=== PATIENT | female | born 1965 | race African-American/Black ===

== ENCOUNTER 2016-06-07 09:19 | Inpatient (IN) | payer OTHER ==
[2016-06-07 09:50] VITALS: BMI 28.5
--- NOTE | 2016-06-07 11:58 | HP ---
CIWA Score - CIWA Score Nausea/Vomitin-Mild Nausea/No Vomiting Muscle Tremors: 4-Moderate,w/Arms Extend Anxiety: 3 Agitation: 4-Moderately Restless Paroxysmal Sweats: 3 Orientation: 0-Oriented Tacttile Disturbances: 0-None Auditory Disturbances: 0-None Visual Disturbances: 0-None Headache: 2-Mild CIWA-Ar Total Score: 17 Admission ROS S - HPI Chief Complaint: I am here to detox. Allergies/Adverse Reactions: Allergies Allergy/AdvReac Type Severity Reaction Status Date / Time sulfamethoxazole Allergy Severe Hives Verified 06/07/16 10:11 [From Bactrim] trimethoprim [From Bactrim] Allergy Severe Hives Verified 06/07/16 10:11 History of Present Illness: pt is a 50yr old female with a history of alcohol and cocaine dependence seeking detox for treatment. Exam Limitations: No Limitations - Ebola screening Have you traveled outside of the country in the last 21 days: No Have you had contact with anyone from an Ebola affected area: No Have you been sick,other than usual withdrawal symptoms: No Do you have a fever: No - Review of Systems Constitutional: Chills, Diaphoresis EENT: reports: Tearing, Nose Congestion Respiratory: reports: Cough, Productive cough Cardiac: reports: No Symptoms Reported GI: reports: Diarrhea, Poor Fluid Intake, Indigestion : reports: No Symptoms Reported Musculoskeletal: reports: Muscle Pain Integumentary: reports: Flushing, Sweating Neuro: reports: Headache, Seizure (last week last seizure), Tingling, Tremors Endocrine: reports: Excessive Sweating, Flushing, Intolerance to Cold, Intolerance to Heat Hematology: reports: No Symptoms Reported Psychiatric: reports: Judgement Intact, Mood/Affect Appropiate, Orientated x3, Agitated, Anxious Other Systems: Reviewed and Negative Patient History - Patient Medical History Hx Anemia: No Hx Asthma: No Hx Chronic Obstructive Pulmonary Disease (COPD): No Hx Cancer: Yes (cervical CA 1996. remission) Hx Cardiac Disorders: No Hx Congestive Heart Failure: No Hx Hypertension: Yes (on meds.) Hx Hypercholesterolemia: No Hx Pacemaker: No HX Cerebrovascular Accident: No Hx Seizures: Yes (seizure disorder last was 1 week ago.) Hx Dementia: No Hx Diabetes: No Hx Gastrointestinal Disorders: Yes (Pt has GERD.) Hx Liver Disease: No Hx Genitourinary Disorders: No Hx Sexually Transmitted Disorders: No Hx Renal Disease (ESRD): No Hx Thyroid Disease: No Hx Human Immunodeficiency Virus (HIV): Yes (HIV diagnosed 1990 compliant with medication ) Hx Hepatitis C: No (2015) Hx Depression: Yes Hx Suicide Attempt: No Hx Bipolar Disorder: No Hx Schizophrenia: Yes - Patient Surgical History Past Surgical History: Yes Hx Neurologic Surgery: No Hx Cataract Extraction: No Hx Cardiac Surgery: No Hx Lung Surgery: No Hx Breast Surgery: No Hx Breast Biopsy: No Hx Abdominal Surgery: No Hx Appendectomy: No Hx Cholecystectomy: No Hx Genitourinary Surgery: No Hx Section: Yes (2004) Hx Orthopedic Surgery: No Hx Hysterectomy: No Other Surgical History: IN 2004, LEEP PROCEDURE FOR CERVIX CANCER 1995 Anesthesia Reaction: No - PPD History Previous Implant?: Yes Documented Results: Negative w/proof Implanted On Prior [facility] Admission?: Yes Date: 11/16/15 Results: 0 MM PPD to be Administered?: No - Reproductive History Patient is a Female of Child Bearing Age (11 -55 yrs old): Yes Last Menstrual Period: 06/05/16 Patient : No - Smoking Cessation Smoking history: Current every day smoker Have you smoked in the past 12 months: Yes Aproximately how many cigarettes per day: 10 Hx Chewing Tobacco Use: No Initiated information on smoking cessation: Yes 'Breaking Loose' booklet given: 06/07/16 - Substance & Tx. History Hx Alcohol Use: Yes Hx Substance Use: Yes Substance Use Type: Alcohol, Cocaine Hx Substance Use Treatment: Yes - Substances Abused Alcohol Route: Oral Frequency: Daily Amount used: 1 QT OF VODKA Age of first use: 15 Date of Last Use: 06/06/16 Crack Route: Smoking Frequency: Daily Amount used: $100 Age of first use: 17 Date of Last Use: 06/06/16 Family Disease History - Family Disease History Family Disease History: CA: Mother (,ca of stomach), Other: Father ( cirhossis of lliver ) Admission Physical Exam S - Vital Signs Vital Signs: Vital Signs - 24 hr 06/07/16 09:43 Temperature 96 F L Pulse Rate 101 H Respiratory 20 Rate Blood Pressure 121/77 - Physical General Appearance: Yes: Appropriately Dressed, Moderate Distress, Tremorous, Irritable, Sweating, Anxious HEENTM: Yes: Normal Voice, Nasal Congestion Respiratory: Yes: Lungs Clear, Normal Breath Sounds, No Respiratory Distress Neck: Yes: No masses,lesions,Nodules Breast: Yes: Within Normal Limits Cardiology: Yes: Regular Rhythm, Regular Rate, S1, S2 Abdominal: Yes: Normal Bowel Sounds, Non Tender, Soft Genitourinary: Yes: Within Normal Limits Back: Yes: Normal Inspection Musculoskeletal: Yes: full range of Motion, Back pain Extremities: Yes: Normal Capillary Refill, Normal Inspection, Tremors Neurological: Yes: Fully Oriented, Alert, Normal Response Integumentary: Yes: Normal Color, Diaphoresis Lymphatic: Yes: Within Normal Limits - Diagnostic (1) Alcohol dependence with uncomplicated withdrawal Current Visit: Yes Status: Chronic (2) Asthma Current Visit: Yes Status: Chronic Qualifiers: Asthma severity: mild intermittent Asthma complication type: with status asthmaticus Qualified Code(s): J45.22 - Mild intermittent asthma with status asthmaticus (3) Cocaine dependence Current Visit: Yes Status: Chronic Qualifiers: Substance use status: uncomplicated Qualified Code(s): F14.20 - Cocaine dependence, uncomplicated (4) GERD (gastroesophageal reflux disease) Current Visit: Yes Status: Chronic Qualifiers: Esophagitis presence: without esophagitis Qualified Code(s): K21.9 - Gastro-esophageal reflux disease without esophagitis (5) HIV (human immunodeficiency virus infection) Current Visit: Yes Status: Chronic Comment: last cd4 count 384 pt has her own medication (6) Hypertension Current Visit: Yes Status: Chronic Qualifiers: Hypertension type: essential hypertension Qualified Code(s): I10 - Essential (primary) hypertension (7) Nicotine dependence Current Visit: Yes Status: Chronic Qualifiers: Nicotine product type: cigarettes Substance use status: uncomplicated Qualified Code(s): F17.210 - Nicotine dependence, cigarettes, uncomplicated Cleared for Admission [facility] - Detox or Rehab [facility] Level of Care: Medically Managed Detox Regimen/Protocol: Librium [facility] Breath Alcohol Content Breath Alcohol Content: 0 Urine Pregancy Test - Result Urine Test Results: Negative- NO Line Present Urine Drug Screen - Results Drug Screen Negative: No Urine Drug Screen Results: MARISELA-Cocaine
[2016-06-07] MEDS ORDERED: hydrOXYzine PAMOATE 50 MG CAPSULE (FP) PO PRN (12:01)
[2016-06-07] MEDS ORDERED: MENTHOL/PHENOL 1 EACH UD MM PRN (12:01)
[2016-06-07] MEDS ORDERED: IBUPROFEN 400 MG TABLET (FP) PO PRN (12:01)
[2016-06-07] MEDS ORDERED: diphenhydrAMINE HCL 50 MG CAPSULE PO PRN (12:01)
[2016-06-07] MEDS ORDERED: chlordiazePOXIDE HCL 25 MG CAPSULE PO PRN (12:01)
[2016-06-07] MEDS ORDERED: MAGNESIUM HYDROX 2400MG/30ML ORAL SUSPENSION 30 ML CUP PO PRN (12:01)
[2016-06-07] MEDS ORDERED: LOPERAMIDE HCL 2 MG CAPSULE PO PRN (12:01)
[2016-06-07] MEDS ORDERED: NICOTINE POLACRILEX 4 MG GUM BUC PRN (12:01)
[2016-06-07] MEDS ORDERED: MAGNESIUM CITRATE 300 ML BOTTLE PO PRN (12:01)
[2016-06-07] MEDS ORDERED: guaiFENesin/D-METHORPHAN HB 10 ML UNIT-DOSE CUPS PO PRN (12:01)
[2016-06-07] MEDS ORDERED: ACETAMINOPHEN 325 MG TABLET (FP) PO PRN (12:01)
[2016-06-07] MEDS ORDERED: MAG HYDROX/AL HYDROX/SIMETH 30 ML UNIT-DOSE CUP PO PRN (12:01)
[2016-06-07] MEDS ORDERED: P-EPHED 60MG/TRIPROLIDI 2.5MG TABLET PO PRN (12:01)
[2016-06-07] MEDS ORDERED: chlordiazePOXIDE HCL 25 MG CAPSULE PO ONE (12:04)
--- NOTE | 2016-06-07 15:17 | EKG ---
Test Reason : Blood Pressure : / mmHG Vent. Rate : 083 BPM Atrial Rate : 083 BPM P-R Int : 158 ms QRS Dur : 088 ms QT Int : 382 ms P-R-T Axes : 073 078 059 degrees QTc Int : 448 ms NORMAL SINUS RHYTHM RIGHT ATRIAL ENLARGEMENT NO PREVIOUS ECGS AVAILABLE Confirmed by DULCE MCKEE MD ([id number]) on 06/07/2016 3:17:21 PM Referred By: Lucius Johnson Confirmed By:DULCE MCKEE MD
[2016-06-07] MEDS: chlordiazePOXIDE HCL 25 MG CAPSULE PO SCH ×2 (17:16→22:50)
--- NOTE | 2016-06-07 17:40 | CONSULT ---
[facility] Psychiatric Consult - Data Date of interview: 06/07/16 Admission source: [facility] Identifying data: Another admission to [facility] for this 50 y/o AA female seeking detox treatment on for alcohol and cocaine dependence.Patient is a single,a mother of three,domiciled,unemployed and supported on SSI benefits. Substance Abuse History: - Smoking Cessation. Smoking history: Current every day smoker. Have you smoked in the past 12 months: Yes. Aproximately how many cigarettes per day: 10. Hx Chewing Tobacco Use: No. Initiated information on smoking cessation: Yes. 'Breaking Loose' booklet given: 06/07/16. - Substance & Tx. History. Hx Alcohol Use: Yes. Hx Substance Use: Yes. Substance Use Type : Alcohol, Cocaine. Hx Substance Use Treatment: Yes. - Substances Abused. Alcohol. Route: Oral. Frequency: Daily. Amount used: 1 QT OF VODKA. Age of first use: 15. Date of Last Use: 06/06/16. Crack. Route: Smoking. Frequency: Daily. Amount used: $100. Age of first use: 17. Date of Last Use: 06/06/16. Confirmed by the patient in this interview. Medical History: HIV infection since 1990 (on ART meds),hypertension,seizure disorder,GERD and a history of cervical cancer (in remission since 1995). 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 Physical/Sexual Abuse/Trauma History: Patient declines to discuss this topic at this time. Additional Comment: Urine Drug Screen Results: MARISELA-Cocaine.Noted. Mental Status Exam - Mental Status Exam Alert and Oriented to: Time, Place, Person Cognitive Function: Good Patient Appearance: Well Groomed Mood: Nervous, Withdrawn, Hopeful Affect: Mood Congruent Patient Behavior: Sedated (mildly), Fatigued, Cooperative Speech Pattern: Clear Voice Loudness: Normal Thought Process: Goal Oriented Thought Disorder: Not Present Hallucinations: Denies Suicidal Ideation: Denies Homicidal Ideation: Denies Insight/Judgement: Fair Sleep: Fair Appetite: Good Muscle strength/Tone: Normal Gait/Station: Normal Psychiatric Findings - Problem List ([place] 1, 2,3) (1) Alcohol dependence with uncomplicated withdrawal Current Visit: Yes Status: Acute (2) Cocaine dependence Current Visit: Yes Status: Acute Qualifiers: Substance use status: uncomplicated Qualified Code(s): F14.20 - Cocaine dependence, uncomplicated (3) Nicotine dependence Current Visit: Yes Status: Acute Qualifiers: Nicotine product type: cigarettes Substance use status: uncomplicated Qualified Code(s): F17.210 - Nicotine dependence, cigarettes, uncomplicated (4) Schizoaffective disorder Current Visit: Yes Status: Chronic (5) Asthma Current Visit: Yes Status: Chronic Qualifiers: Asthma severity: mild intermittent Asthma complication type: with status asthmaticus Qualified Code(s): J45.22 - Mild intermittent asthma with status asthmaticus (6) GERD (gastroesophageal reflux disease) Current Visit: Yes Status: Chronic Qualifiers: Esophagitis presence: without esophagitis Qualified Code(s): K21.9 - Gastro-esophageal reflux disease without esophagitis (7) HIV (human immunodeficiency virus infection) Current Visit: Yes Status: Chronic Comment: last cd4 count 384 pt has her own medication (8) Hypertension Current Visit: Yes Status: Chronic Qualifiers: Hypertension type: essential hypertension Qualified Code(s): I10 - Essential (primary) hypertension - Initial Treatment Plan Initial Treatment Plan: Psychoeducation.Detoxification in progress.Will contact [facility] for verification of date of last injection of haldol decanoate.Cogentin im po bid.Side effects/benefits discussed with the patient.She agrees with this plan.Observation.
[2016-06-07 21:41] LABS: URINE APPEARANCE CLEAR; URINE BILIRUBIN NEGATIVE (NEGATIVE); URINE BLOOD NEGATIVE (NEGATIVE); URINE COLOR DKYELLOW; URINE GLUCOSE (UA) NEGATIVE (NEGATIVE); URINE KETONE 1+ (NEGATIVE); URINE LEUK ESTERASE NEGATIVE (NEGATIVE); URINE NITRITE NEGATIVE (NEGATIVE); URINE UROBILINOGEN NEGATIVE E.U./dl (0.2-1.0)
[2016-06-07 21:45] LABS: URINE PROTEIN 1+ (NEGATIVE)
[2016-06-07 21:49] LABS: URINE BACTERIA RARE /hpf (NONE SEEN); URINE MUCUS RARE; URINE RBC 3 /hpf (0-3); URINE WBC 3 /hpf (3-5)
[2016-06-07] MEDS: THIAMINE HCL 100 MG TABLET (FP) PO SCH (22:50)
[2016-06-07] MEDS: LACOSAMIDE 50 MG TABLET PO SCH (22:50)
[2016-06-07] MEDS: BENZTROPINE MESYLATE 1 MG TABLET (FP) PO SCH (22:50)
[2016-06-08] MEDS: chlordiazePOXIDE HCL 25 MG CAPSULE PO SCH ×4 (05:17→22:18)
--- NOTE | 2016-06-08 09:13 | PN ---
[facility] CIWA - CIWA Score Nausea/Vomitin Muscle Tremors: 3 Anxiety: 3 Agitation: 2 Paroxysmal Sweats: 1-Minimal Palms Moist Orientation: 0-Oriented Tacttile Disturbances: 1-Very Mild Itch/Numbness Auditory Disturbances: 1-Very Mild Visual Disturbances: 1-Very Mild Sensitivity Headache: 2-Mild CIWA-Ar Total Score: 17 [facility] Progress Note (SOAP) Subjective: ALERT,IRRITABLE,ANXIOUS,INTERRUPTED SLEEP,TREMOR Objective: 06/08/16 09:12 Vital Signs Temperature 98.1 F 06/08/16 06:21 Pulse Rate 72 06/08/16 06:21 Respiratory Rate 18 06/08/16 06:21 Blood Pressure 120/79 06/08/16 06:21 O2 Sat by Pulse Oximetry (%) EKG NSR 06/08/16 09:12 Laboratory Last Values Urine Color Dkyellow 06/07/16 21:00 Urine Appearance Clear 06/07/16 21:00 Urine pH 6.0 (5.0-8.0) 06/07/16 21:00 Ur Specific [place] 1.021 (1.001-1.035) 06/07/16 21:00 Urine Protein 1+ (NEGATIVE) H 06/07/16 21:00 Urine Glucose (UA) Negative (NEGATIVE) 06/07/16 21:00 Urine Ketones 1+ (NEGATIVE) H 06/07/16 21:00 Urine Blood Negative (NEGATIVE) 06/07/16 21:00 Urine Nitrite Negative (NEGATIVE) 06/07/16 21:00 Urine Bilirubin Negative (NEGATIVE) 06/07/16 21:00 Urine Urobilinogen Negative E.U./dl (0.2-1.0) 06/07/16 21:00 Ur Leukocyte Esterase Negative (NEGATIVE) 06/07/16 21:00 Urine RBC 3 /hpf (0-3) 06/07/16 21:00 Urine WBC 3 /hpf (3-5) 06/07/16 21:00 Ur Epithelial Cells Many /hpf (FEW) 06/07/16 21:00 Amorphous Urates Few /hpf (NONE SEEN) 06/07/16 21:00 Urine Bacteria Rare /hpf (NONE SEEN) 06/07/16 21:00 Urine Mucus Rare 06/07/16 21:00 Hepatitis C Antibody 0.1 s/co ratio (0.0-0.9) 06/07/16 12:00 LABS PENDING Assessment: 06/08/16 09:13 WITHDRAWAL SYMPTOM Plan: CONTINUE DETOX
[2016-06-08] MEDS: BENZTROPINE MESYLATE 1 MG TABLET (FP) PO SCH ×2 (10:13→22:18)
[2016-06-08] MEDS: LISINOPRIL 10 MG TABLET (FP) PO SCH (10:13)
[2016-06-08] MEDS: PANTOPRAZOLE 20 MG TABLET (FP) PO SCH (10:13)
[2016-06-08] MEDS: PRENATAL VITAMINS W/ FOLIC ACID TABLET (FP) PO SCH (10:13)
[2016-06-08] MEDS: HYDROCHLOROTHIAZIDE 12.5 MG CAPSULE (FP) PO SCH (10:13)
[2016-06-08 11:11] LABS: MCH 27.9 pg (25.7-33.7); MCHC 33.1 g/dl (32.0-36.0); MEAN CELL VOLUME 84.4 fl (80-96); MEAN PLT VOLUME 9.1 fl (7.5-11.1); PLATELET COUNT 257 K/MM3 (134-434); RDW 16.8 % (11.6-15.6); WHITE BLOOD COUNT 10.5 K/mm3 (4.0-10.0)
[2016-06-08 11:25] LABS: ALBUMIN 3.9 g/dl (3.4-5.0); BILIRUBIN,TOTAL 0.5 mg/dL (0.2-1.0); CREATININE 1.1 mg/dL (0.55-1.02); TOT PROT 7.6 g/dl (6.4-8.2)
[2016-06-08] MEDS: LACOSAMIDE 50 MG TABLET PO SCH ×2 (14:28→22:18)
[2016-06-08] MEDS ORDERED: LACOSAMIDE 50 MG TABLET PO ONE ×2 (16:05→16:30)
[2016-06-08] MEDS: THIAMINE HCL 100 MG TABLET (FP) PO SCH (22:18)
[2016-06-09] MEDS: chlordiazePOXIDE HCL 25 MG CAPSULE PO SCH ×2 (05:14→10:31)
--- NOTE | 2016-06-09 09:52 | PN ---
S CIWA - CIWA Score Nausea/Vomitin Muscle Tremors: 3 Anxiety: 3 Agitation: 2 Paroxysmal Sweats: 1-Minimal Palms Moist Orientation: 0-Oriented Tacttile Disturbances: 1-Very Mild Itch/Numbness Auditory Disturbances: 1-Very Mild Visual Disturbances: 1-Very Mild Sensitivity Headache: 2-Mild CIWA-Ar Total Score: 17 [facility] Progress Note (SOAP) Subjective: ALERT,IRRITABLE,ANXIOUS,INTERRUPTED SLEEP,TREMOR Objective: 06/09/16 09:47 Vital Signs Temperature 97.9 F 06/09/16 09:45 Pulse Rate 90 06/09/16 09:45 Respiratory Rate 20 06/09/16 09:45 Blood Pressure 115/77 06/09/16 09:45 O2 Sat by Pulse Oximetry (%) Laboratory Last Values WBC 10.5 K/mm3 (4.0-10.0) H D 06/08/16 06:15 RBC 4.21 M/mm3 (3.60-5.2) 06/08/16 06:15 Hgb 11.8 GM/dL (10.7-15.3) 06/08/16 06:15 Hct 35.5 % (32.4-45.2) 06/08/16 06:15 MCV 84.4 fl (80-96) 06/08/16 06:15 MCHC 33.1 g/dl (32.0-36.0) 06/08/16 06:15 RDW 16.8 % (11.6-15.6) H 06/08/16 06:15 Plt Count 257 K/MM3 (134-434) D 06/08/16 06:15 MPV 9.1 fl (7.5-11.1) 06/08/16 06:15 Sodium 139 mmol/L (136-145) 06/08/16 06:15 Potassium 4.1 mmol/L (3.5-5.1) 06/08/16 06:15 Chloride 102 mmol/L (98-107) 06/08/16 06:15 Carbon Dioxide 29 mmol/L (21-32) 06/08/16 06:15 Anion Gap 8 (8-16) 06/08/16 06:15 BUN 10 mg/dL (7-18) 06/08/16 06:15 Creatinine 1.1 mg/dL (0.55-1.02) H 06/08/16 06:15 Creat Clearance w eGFR 53.01 (>60) 06/08/16 06:15 Random Glucose 95 mg/dL (74-106) D 06/08/16 06:15 Calcium 9.0 mg/dL (8.5-10.1) 06/08/16 06:15 Total Bilirubin 0.5 mg/dL (0.2-1.0) D 06/08/16 06:15 AST 24 U/L (15-37) 06/08/16 06:15 ALT 16 U/L (12-78) 06/08/16 06:15 Alkaline Phosphatase 83 U/L (45-117) 06/08/16 06:15 Total Protein 7.6 g/dl (6.4-8.2) 06/08/16 06:15 Albumin 3.9 g/dl (3.4-5.0) 06/08/16 06:15 Urine Color Dkyellow 06/07/16 21:00 Urine Appearance Clear 06/07/16 21:00 Urine pH 6.0 (5.0-8.0) 06/07/16 21:00 Ur Specific [place] 1.021 (1.001-1.035) 06/07/16 21:00 Urine Protein 1+ (NEGATIVE) H 06/07/16 21:00 Urine Glucose (UA) Negative (NEGATIVE) 06/07/16 21:00 Urine Ketones 1+ (NEGATIVE) H 06/07/16 21:00 Urine Blood Negative (NEGATIVE) 06/07/16 21:00 Urine Nitrite Negative (NEGATIVE) 06/07/16 21:00 Urine Bilirubin Negative (NEGATIVE) 06/07/16 21:00 Urine Urobilinogen Negative E.U./dl (0.2-1.0) 06/07/16 21:00 Ur Leukocyte Esterase Negative (NEGATIVE) 06/07/16 21:00 Urine RBC 3 /hpf (0-3) 06/07/16 21:00 Urine WBC 3 /hpf (3-5) 06/07/16 21:00 Ur Epithelial Cells Many /hpf (FEW) 06/07/16 21:00 Amorphous Urates Few /hpf (NONE SEEN) 06/07/16 21:00 Urine Bacteria Rare /hpf (NONE SEEN) 06/07/16 21:00 Urine Mucus Rare 06/07/16 21:00 RPR Titer Nonreactive (NONREACTIVE) 06/08/16 06:15 Hepatitis C Antibody 0.1 s/co ratio (0.0-0.9) 06/07/16 12:00 Assessment: 06/09/16 09:49 WITHDRAWAL SYMPTOM 06/09/16 10:10 Plan: CONTINUE DETOX,ENCOURAGE ORAL FLUID,
[2016-06-09] MEDS: LACOSAMIDE 50 MG TABLET PO SCH ×2 (10:31→22:17)
[2016-06-09] MEDS: BENZTROPINE MESYLATE 1 MG TABLET (FP) PO SCH ×2 (10:31→22:17)
[2016-06-09] MEDS: LISINOPRIL 10 MG TABLET (FP) PO SCH (10:31)
[2016-06-09] MEDS: PRENATAL VITAMINS W/ FOLIC ACID TABLET (FP) PO SCH (10:31)
[2016-06-09] MEDS: HYDROCHLOROTHIAZIDE 12.5 MG CAPSULE (FP) PO SCH (10:31)
[2016-06-09] MEDS: PANTOPRAZOLE 20 MG TABLET (FP) PO SCH (10:31)
[2016-06-09] MEDS: chlordiazePOXIDE 5 MG CAPSULE PO SCH ×2 (17:35→22:16)
[2016-06-09] MEDS: THIAMINE HCL 100 MG TABLET (FP) PO SCH (22:17)
[2016-06-10] MEDS: chlordiazePOXIDE 5 MG CAPSULE PO SCH (05:10)
--- NOTE | 2016-06-10 09:38 | PN ---
[facility] Progress Note Note: Psychiatry Attending's note : Attempt made on 06/08/16 to contact [facility]. Purpose : verification of date of last injection of haldol decanoate. Patient had signed document for release of information on that date. Received by nurse Amanda Garcia.Call made.No response.Will follow.
--- NOTE | 2016-06-10 10:02 | DS ---
[facility] Detox Discharge Summary Admission Date: 06/07/16 Discharge Date: 06/10/16 - History Present History: Alcohol Dependence, Cocaine Dependence - Physical Exam Results Vital Signs: Vital Signs Temperature 98.1 F 06/10/16 06:00 Pulse Rate 67 06/10/16 06:00 Respiratory Rate 16 06/10/16 06:00 Blood Pressure 96/60 06/10/16 06:00 O2 Sat by Pulse Oximetry (%) - Treatment Hospital Course: Detox Protocol Followed, Detoxed Safely, Responded well, Discharged Condition Good, Rehab Referral Accepted - Medication Discharge Medications: Ambulatory Orders Haloperidol Decanoate [Haldol Decanoate 100] 100 mg IM MONTHLY 09/16/14 Elviteg/Joyce/Emtric/Tenofo Ala [Genvoya Tablet] 1 each PO DAILY #30 tablet 05/03 Hydrochlorothiazide [Hctz -] 12.5 mg PO DAILY #30 cap 05/28/16 Lisinopril [Prinivil] 10 mg PO DAILY #30 tablet 05/28/16 Benztropine Mesylate [Cogentin -] 1 mg PO BID 06/07/16 Lacosamide [Vimpat -] 50 mg PO BID 06/07/16 Omeprazole 20 mg PO DAILY 06/07/16 - Diagnosis (1) Alcohol dependence with uncomplicated withdrawal Current Visit: Yes Status: Chronic (2) Asthma Current Visit: Yes Status: Chronic Qualifiers: Asthma severity: mild intermittent Asthma complication type: with status asthmaticus Qualified Code(s): J45.22 - Mild intermittent asthma with status asthmaticus (3) Cocaine dependence Current Visit: Yes Status: Acute Qualifiers: Substance use status: uncomplicated Qualified Code(s): F14.20 - Cocaine dependence, uncomplicated (4) GERD (gastroesophageal reflux disease) Current Visit: Yes Status: Chronic Qualifiers: Esophagitis presence: without esophagitis Qualified Code(s): K21.9 - Gastro-esophageal reflux disease without esophagitis (5) HIV (human immunodeficiency virus infection) Current Visit: Yes Status: Chronic (6) Hypertension Current Visit: Yes Status: Chronic Qualifiers: Hypertension type: essential hypertension Qualified Code(s): I10 - Essential (primary) hypertension (7) Nicotine dependence Current Visit: Yes Status: Chronic Qualifiers: Nicotine product type: cigarettes Substance use status: uncomplicated Qualified Code(s): F17.210 - Nicotine dependence, cigarettes, uncomplicated - AMA Did Patient Leave Against Medical Advice: Yes
[2016-06-10 10:09] VITALS: BP 132/82; PULSE 79; TEMP 97.5
[2016-06-10] MEDS ORDERED: chlordiazePOXIDE HCL 10 MG CAPSULE PO SCH (17:00)
== END 2016-06-10 09:45 | disposition left against medical advice (07) | DRG 770 ==
LOC: YASAS 09:19 → Y6N 11:49
PROVIDERS: ADMIT Internal Medicine; ATTEND Internal Medicine
PROC: HZ2ZZZZ Detoxification Services for Substance Abuse Treatment (ICD-10-PCS; principal; 2016-06-07)
DX: F10.230 Alcohol dependence with withdrawal, uncomplicated (principal); F14.20 Cocaine dependence, uncomplicated; F17.210 Nicotine dependence, cigarettes, uncomplicated; F25.9 Schizoaffective disorder, unspecified; J45.22 Mild intermittent asthma with status asthmaticus; K21.9 Gastro-esophageal reflux disease without esophagitis; Z21 Asymptomatic human immunodeficiency virus [HIV] infection status; I10 Essential (primary) hypertension; G40.909 Epilepsy, unspecified, not intractable, without status epilepticus; Z85.41 Personal history of malignant neoplasm of cervix uteri; Z91.14 Patient's other noncompliance with medication regimen
CPT/HCPCS: 36415; 80053; 81003; 81015; 85027; 86593; 93005; 93010

== ENCOUNTER 2016-06-13 09:45 | Inpatient (IN) | payer OTHER ==
[2016-06-13 10:26] VITALS: BMI 29.2
--- NOTE | 2016-06-13 12:19 | HP ---
[facility] Rehab Assess/Revision - Admission History Admitted to Rehab from: [facility] [address] [place] - Vital signs Vital Signs: Vital Signs Period Temp Pulse Resp BP Sys/Jc Pulse Ox Last 24 Hr 96.3 F 90 18 109/70 - Findings Detox History & Physical reviewed: Yes Concur with findings: Yes
[2016-06-13] MEDS ORDERED: MAG HYDROX/AL HYDROX/SIMETH 30 ML UNIT-DOSE CUP PO PRN (12:20)
[2016-06-13] MEDS ORDERED: NICOTINE POLACRILEX 4 MG GUM BUC PRN (12:20)
[2016-06-13] MEDS ORDERED: P-EPHED 60MG/TRIPROLIDI 2.5MG TABLET PO PRN (12:20)
[2016-06-13] MEDS ORDERED: MAGNESIUM CITRATE 300 ML BOTTLE PO PRN (12:20)
[2016-06-13] MEDS ORDERED: MAGNESIUM HYDROX 2400MG/30ML ORAL SUSPENSION 30 ML CUP PO PRN (12:20)
[2016-06-13] MEDS ORDERED: diphenhydrAMINE HCL 50 MG CAPSULE PO PRN (12:20)
[2016-06-13] MEDS ORDERED: LOPERAMIDE HCL 2 MG CAPSULE PO PRN (12:20)
[2016-06-13] MEDS ORDERED: IBUPROFEN 400 MG TABLET (FP) PO PRN (12:20)
[2016-06-13] MEDS ORDERED: hydrOXYzine PAMOATE 50 MG CAPSULE (FP) PO PRN (12:20)
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
[2016-06-13] MEDS ORDERED: HALOPERIDOL DECANOATE 100 MG/ML IM ONE (14:46)
[2016-06-13] MEDS ORDERED: PT OWN MED DRAWER 7, Y5N ONE (15:50)
[2016-06-13] MEDS: BENZTROPINE MESYLATE 1 MG TABLET (FP) PO SCH (21:16)
[2016-06-13] MEDS: THIAMINE HCL 100 MG TABLET (FP) PO SCH (21:16)
[2016-06-13] MEDS: LACOSAMIDE 50 MG TABLET PO SCH (21:16)
[2016-06-13] MEDS ORDERED: BENZTROPINE MESYLATE 1 MG TABLET (FP) PO SCH (22:00)
[2016-06-14] MEDS: MENTHOL/PHENOL 1 EACH UD MM PRN ×2 (06:51→21:20)
[2016-06-14] MEDS: guaiFENesin/D-METHORPHAN HB 10 ML UNIT-DOSE CUPS PO PRN (06:51)
[2016-06-14] MEDS ORDERED: PT OWN MED DRAWER 7, Y5N ONE (08:11)
[2016-06-14] MEDS ORDERED: HALOPERIDOL DECANOATE 100 MG/ML IM ONE (09:25)
[2016-06-14] MEDS: PANTOPRAZOLE 20 MG TABLET (FP) PO SCH (10:11)
[2016-06-14] MEDS: BENZTROPINE MESYLATE 1 MG TABLET (FP) PO SCH ×2 (10:11→21:18)
[2016-06-14] MEDS: LISINOPRIL 10 MG TABLET (FP) PO SCH (10:11)
[2016-06-14] MEDS: LACOSAMIDE 50 MG TABLET PO SCH ×2 (10:11→21:18)
[2016-06-14] MEDS: HYDROCHLOROTHIAZIDE 12.5 MG CAPSULE (FP) PO SCH (10:11)
[2016-06-14] MEDS: PRENATAL VITAMINS W/ FOLIC ACID TABLET (FP) PO SCH (10:11)
[2016-06-14 10:12] LABS: URINE APPEARANCE CLEAR; URINE BILIRUBIN NEGATIVE (NEGATIVE); URINE BLOOD NEGATIVE (NEGATIVE); URINE COLOR YELLOW; URINE GLUCOSE (UA) NEGATIVE (NEGATIVE); URINE KETONE NEGATIVE (NEGATIVE); URINE LEUK ESTERASE NEGATIVE (NEGATIVE); URINE NITRITE NEGATIVE (NEGATIVE); URINE PROTEIN NEGATIVE (NEGATIVE); URINE UROBILINOGEN 2.0 E.U/dl E.U./dl (0.2-1.0)
[2016-06-14] MEDS: NICOTINE 21 MG/24 HOURS TOPICAL PATCH TD SCH (10:12)
[2016-06-14] MEDS: THIAMINE HCL 100 MG TABLET (FP) PO SCH (21:18)
[2016-06-15] MEDS: guaiFENesin/D-METHORPHAN HB 10 ML UNIT-DOSE CUPS PO PRN (07:06)
[2016-06-15] MEDS: MENTHOL/PHENOL 1 EACH UD MM PRN (07:06)
[2016-06-15] MEDS: PANTOPRAZOLE 20 MG TABLET (FP) PO SCH (10:26)
[2016-06-15] MEDS ORDERED: PT OWN MED DRAWER 7, Y5N ONE (10:26)
[2016-06-15] MEDS: HYDROCHLOROTHIAZIDE 12.5 MG CAPSULE (FP) PO SCH (10:26)
[2016-06-15] MEDS: LISINOPRIL 10 MG TABLET (FP) PO SCH (10:27)
[2016-06-15] MEDS: NICOTINE 21 MG/24 HOURS TOPICAL PATCH TD SCH (10:27)
[2016-06-15] MEDS: LACOSAMIDE 50 MG TABLET PO SCH ×2 (10:27→21:10)
[2016-06-15] MEDS: PRENATAL VITAMINS W/ FOLIC ACID TABLET (FP) PO SCH (10:27)
[2016-06-15] MEDS: BENZTROPINE MESYLATE 1 MG TABLET (FP) PO SCH ×2 (10:27→21:10)
[2016-06-15] MEDS: THIAMINE HCL 100 MG TABLET (FP) PO SCH (21:09)
[2016-06-16] MEDS ORDERED: PT OWN MED DRAWER 7, Y5N ONE (08:15)
[2016-06-16] MEDS: PRENATAL VITAMINS W/ FOLIC ACID TABLET (FP) PO SCH (09:52)
[2016-06-16] MEDS: LACOSAMIDE 50 MG TABLET PO SCH ×2 (09:52→21:10)
[2016-06-16] MEDS: BENZTROPINE MESYLATE 1 MG TABLET (FP) PO SCH ×2 (09:53→21:10)
[2016-06-16] MEDS: LISINOPRIL 10 MG TABLET (FP) PO SCH (09:53)
[2016-06-16] MEDS: PANTOPRAZOLE 20 MG TABLET (FP) PO SCH (09:53)
[2016-06-16] MEDS: HYDROCHLOROTHIAZIDE 12.5 MG CAPSULE (FP) PO SCH (09:53)
[2016-06-16] MEDS: NICOTINE 21 MG/24 HOURS TOPICAL PATCH TD SCH (09:53)
[2016-06-16] MEDS: guaiFENesin/D-METHORPHAN HB 10 ML UNIT-DOSE CUPS PO PRN (13:45)
[2016-06-16] MEDS: ACETAMINOPHEN 325 MG TABLET (FP) PO PRN (20:38)
[2016-06-16] MEDS: THIAMINE HCL 100 MG TABLET (FP) PO SCH (21:10)
[2016-06-17] MEDS ORDERED: PT OWN MED DRAWER 7, Y5N ONE (08:39)
[2016-06-17] MEDS: LISINOPRIL 10 MG TABLET (FP) PO SCH (09:46)
[2016-06-17] MEDS: PANTOPRAZOLE 20 MG TABLET (FP) PO SCH (09:46)
[2016-06-17] MEDS: HYDROCHLOROTHIAZIDE 12.5 MG CAPSULE (FP) PO SCH (09:46)
[2016-06-17] MEDS: LACOSAMIDE 50 MG TABLET PO SCH ×2 (09:47→21:12)
[2016-06-17] MEDS: NICOTINE 21 MG/24 HOURS TOPICAL PATCH TD SCH (09:47)
[2016-06-17] MEDS: BENZTROPINE MESYLATE 1 MG TABLET (FP) PO SCH ×2 (09:47→21:12)
[2016-06-17] MEDS: PRENATAL VITAMINS W/ FOLIC ACID TABLET (FP) PO SCH (09:47)
--- NOTE | 2016-06-17 11:30 | PN ---
[facility] Progress Note Note: coughing yellowish mucous,lung clear,acute bronchitis zithromax 500 mgs po now then 250 mgs po daily for 4 more days
[2016-06-17] MEDS ORDERED: AZITHROMYCIN 250 MG TABLET (FP) PO ONE (11:51)
[2016-06-17] MEDS: THIAMINE HCL 100 MG TABLET (FP) PO SCH (21:13)
[2016-06-17] MEDS: ACETAMINOPHEN 325 MG TABLET (FP) PO PRN (21:14)
[2016-06-18] MEDS ORDERED: PT OWN MED DRAWER 7, Y5N ONE ×2 (08:32→15:58)
[2016-06-18] MEDS: LISINOPRIL 10 MG TABLET (FP) PO SCH (09:59)
[2016-06-18] MEDS: PRENATAL VITAMINS W/ FOLIC ACID TABLET (FP) PO SCH (09:59)
[2016-06-18] MEDS: LACOSAMIDE 50 MG TABLET PO SCH ×2 (09:59→21:07)
[2016-06-18] MEDS: HYDROCHLOROTHIAZIDE 12.5 MG CAPSULE (FP) PO SCH (09:59)
[2016-06-18] MEDS: NICOTINE 21 MG/24 HOURS TOPICAL PATCH TD SCH (10:00)
[2016-06-18] MEDS: AZITHROMYCIN 250 MG TABLET (FP) PO SCH (10:00)
[2016-06-18] MEDS: PANTOPRAZOLE 20 MG TABLET (FP) PO SCH (10:00)
[2016-06-18] MEDS: BENZTROPINE MESYLATE 1 MG TABLET (FP) PO SCH ×2 (10:00→21:07)
[2016-06-18] MEDS: ACETAMINOPHEN 325 MG TABLET (FP) PO PRN (15:47)
--- NOTE | 2016-06-18 16:06 | PN ---
S Progress Note Note: 50 y/o f pt with h/o chronic etoh, cocaine dep, hiv and partial sz's - while walking in rehab unit developed a sz and found on floor . as per pts they stated she was placed on floor . pt found by staff somewhat confused but soon aox3. pt now c/o rt sided headache .States it feels like electrical activity exam Vital Signs Temperature 97.3 F L 06/18/16 15:53 Pulse Rate 75 06/18/16 15:53 Respiratory Rate 17 06/18/16 15:53 Blood Pressure 130/87 06/18/16 15:53 O2 Sat by Pulse Oximetry (%) pt aox3 head no bruises or lacerations 0n rt pt on vimpac imp- sz with headache ? head injury hiv+ plan - Ed evaluation pt signed out to DR. Montanez in ED empress ambulette activity
--- NOTE | 2016-06-18 20:04 | PN ---
[facility] Progress Note Note: RETURN FROM ER, TREATED FOR PARTIAL SEIZURE. ALERT ORIENTED X 3, SPEECH CLEARLY, GOOD EYE CONTACT, STEADY GAIT, DENIES PAIN NO NEW MEDICATION RECOMMENDED RETURN TO UNIT CONTINUE REHAB
--- NOTE | 2016-06-18 20:07 | PN ---
S Progress Note Note: PATIENT MEDICALLY CLEAR FROM [facility] ER TO RETURN TO REHAB SEEN BY DR JULIAN AND ME EARLIER ON RESPOND TO RAPID RESPOND VITAL SIGN STABLE INITIATE FALL PROTOCOL 2 NO HEAD INJURY SEIZURE PRECAUTION
[2016-06-18] MEDS: THIAMINE HCL 100 MG TABLET (FP) PO SCH (21:07)
[2016-06-19] MEDS ORDERED: PT OWN MED DRAWER 7, Y5N ONE (10:38)
[2016-06-19] MEDS: NICOTINE 21 MG/24 HOURS TOPICAL PATCH TD SCH (10:56)
[2016-06-19] MEDS: LISINOPRIL 10 MG TABLET (FP) PO SCH (10:57)
[2016-06-19] MEDS: HYDROCHLOROTHIAZIDE 12.5 MG CAPSULE (FP) PO SCH (10:57)
[2016-06-19] MEDS: PRENATAL VITAMINS W/ FOLIC ACID TABLET (FP) PO SCH (10:57)
[2016-06-19] MEDS: PANTOPRAZOLE 20 MG TABLET (FP) PO SCH (10:57)
[2016-06-19] MEDS: LACOSAMIDE 50 MG TABLET PO SCH ×2 (10:57→21:30)
[2016-06-19] MEDS: BENZTROPINE MESYLATE 1 MG TABLET (FP) PO SCH ×2 (10:58→21:30)
[2016-06-19] MEDS: AZITHROMYCIN 250 MG TABLET (FP) PO SCH (10:58)
[2016-06-19] MEDS: THIAMINE HCL 100 MG TABLET (FP) PO SCH (21:30)
[2016-06-20] MEDS ORDERED: PT OWN MED DRAWER 7, Y5N ONE (08:43)
[2016-06-20] MEDS: NICOTINE 21 MG/24 HOURS TOPICAL PATCH TD SCH (10:02)
[2016-06-20] MEDS: LACOSAMIDE 50 MG TABLET PO SCH ×2 (10:03→21:30)
[2016-06-20] MEDS: BENZTROPINE MESYLATE 1 MG TABLET (FP) PO SCH ×2 (10:03→21:29)
[2016-06-20] MEDS: LISINOPRIL 10 MG TABLET (FP) PO SCH (10:03)
[2016-06-20] MEDS: AZITHROMYCIN 250 MG TABLET (FP) PO SCH (10:03)
[2016-06-20] MEDS: PRENATAL VITAMINS W/ FOLIC ACID TABLET (FP) PO SCH (10:03)
[2016-06-20] MEDS: PANTOPRAZOLE 20 MG TABLET (FP) PO SCH (10:03)
[2016-06-20] MEDS: HYDROCHLOROTHIAZIDE 12.5 MG CAPSULE (FP) PO SCH (10:03)
[2016-06-20] MEDS: THIAMINE HCL 100 MG TABLET (FP) PO SCH (21:29)
[2016-06-21] MEDS: PRENATAL VITAMINS W/ FOLIC ACID TABLET (FP) PO SCH (10:20)
[2016-06-21] MEDS: LISINOPRIL 10 MG TABLET (FP) PO SCH (10:20)
[2016-06-21] MEDS: BENZTROPINE MESYLATE 1 MG TABLET (FP) PO SCH ×2 (10:20→21:14)
[2016-06-21] MEDS: LACOSAMIDE 50 MG TABLET PO SCH ×2 (10:20→21:14)
[2016-06-21] MEDS: AZITHROMYCIN 250 MG TABLET (FP) PO SCH (10:21)
[2016-06-21] MEDS: HYDROCHLOROTHIAZIDE 12.5 MG CAPSULE (FP) PO SCH (10:21)
[2016-06-21] MEDS: PANTOPRAZOLE 20 MG TABLET (FP) PO SCH (10:21)
[2016-06-21] MEDS: NICOTINE 21 MG/24 HOURS TOPICAL PATCH TD SCH (10:21)
[2016-06-21] MEDS ORDERED: PT OWN MED DRAWER 7, Y5N ONE (11:08)
[2016-06-21] MEDS: THIAMINE HCL 100 MG TABLET (FP) PO SCH (21:14)
[2016-06-22] MEDS ORDERED: PT OWN MED DRAWER 7, Y5N ONE (08:37)
[2016-06-22] MEDS: LACOSAMIDE 50 MG TABLET PO SCH ×2 (09:57→21:09)
[2016-06-22] MEDS: PANTOPRAZOLE 20 MG TABLET (FP) PO SCH (09:57)
[2016-06-22] MEDS: PRENATAL VITAMINS W/ FOLIC ACID TABLET (FP) PO SCH (09:57)
[2016-06-22] MEDS: HYDROCHLOROTHIAZIDE 12.5 MG CAPSULE (FP) PO SCH (09:57)
[2016-06-22] MEDS: BENZTROPINE MESYLATE 1 MG TABLET (FP) PO SCH ×2 (09:57→21:09)
[2016-06-22] MEDS: LISINOPRIL 10 MG TABLET (FP) PO SCH (09:57)
[2016-06-22] MEDS: NICOTINE 21 MG/24 HOURS TOPICAL PATCH TD SCH (09:57)
[2016-06-22] MEDS: THIAMINE HCL 100 MG TABLET (FP) PO SCH (21:09)
[2016-06-23] MEDS ORDERED: PT OWN MED DRAWER 7, Y5N ONE (08:34)
[2016-06-23] MEDS: PANTOPRAZOLE 20 MG TABLET (FP) PO SCH (09:40)
[2016-06-23] MEDS: PRENATAL VITAMINS W/ FOLIC ACID TABLET (FP) PO SCH (09:40)
[2016-06-23] MEDS: BENZTROPINE MESYLATE 1 MG TABLET (FP) PO SCH ×2 (09:41→21:08)
[2016-06-23] MEDS: LACOSAMIDE 50 MG TABLET PO SCH ×2 (09:41→21:08)
[2016-06-23] MEDS: NICOTINE 21 MG/24 HOURS TOPICAL PATCH TD SCH (09:41)
[2016-06-23] MEDS: LISINOPRIL 10 MG TABLET (FP) PO SCH (09:41)
[2016-06-23] MEDS: HYDROCHLOROTHIAZIDE 12.5 MG CAPSULE (FP) PO SCH (09:41)
[2016-06-23 16:41] VITALS: TEMP 98.1
[2016-06-23] MEDS: THIAMINE HCL 100 MG TABLET (FP) PO SCH (21:08)
[2016-06-24 07:05] VITALS: BP 130/86; PULSE 60
[2016-06-24] MEDS ORDERED: PT OWN MED DRAWER 7, Y5N ONE (08:45)
[2016-06-24] MEDS: LISINOPRIL 10 MG TABLET (FP) PO SCH (09:08)
[2016-06-24] MEDS: NICOTINE 21 MG/24 HOURS TOPICAL PATCH TD SCH (09:08)
[2016-06-24] MEDS: BENZTROPINE MESYLATE 1 MG TABLET (FP) PO SCH (09:08)
[2016-06-24] MEDS: PRENATAL VITAMINS W/ FOLIC ACID TABLET (FP) PO SCH (09:08)
[2016-06-24] MEDS: HYDROCHLOROTHIAZIDE 12.5 MG CAPSULE (FP) PO SCH (09:08)
[2016-06-24] MEDS: PANTOPRAZOLE 20 MG TABLET (FP) PO SCH (09:09)
[2016-06-24] MEDS: LACOSAMIDE 50 MG TABLET PO SCH (09:11)
--- NOTE | 2016-06-24 09:48 | PN ---
Psychiatric Progress Note Vital Signs: Vital Signs Period Temp Pulse Resp BP Sys/Jc Pulse Ox Last 24 Hr 98.1 F-98.1 F 60-61 16-18 122-130/75-86 Date of Session: 06/24/16 Chief Complaint:: Discharge visit HPI: Patient addressed Alcohol and Cocaine dependence comorbid with Schizoaffective disorder. ROS: BA,HTN,GERD,HIV+. Current Side Effect: No Lab tests ordered: No Lab tests reviewed: Yes Provider note:: Patient completed this program today.She has met her treatment goals and will continue to address her issues on outpatient basis.PAtient was given Haldol Decanoate 100 mg IM on 05/14/16 and next IM injection will be provided on 06/11/16 on outpatient basis.Patient will continue to take Cogentin 1mg po bid,script for 30 days supply provided. Therapy provided focusing on coping skills,support utilization to maitain recovery.Supportive therapy, psychoeducation proivided. Patient is stable for discharge today. Total face to face time:: 30 Mental Status Exam - Mental Status Exam Alert and Oriented to: Time, Place, Person Cognitive Function: Grossly Intact Patient Appearance: Well Groomed Mood: Hopeful, Euthymic Affect: Appropriate, Mood Congruent Patient Behavior: Cooperative Speech Pattern: Clear Voice Loudness: Normal Thought Process: Goal Oriented Thought Disorder: Being Controlled Hallucinations: Denies Suicidal Ideation: Denies Homicidal Ideation: Denies Insight/Judgement: Fair Sleep: Fair Appetite: Fair Muscle strength/Tone: Normal Gait/Station: Normal Psychiatric Treatment Plan - Problem List (3) Asthma Qualifiers: Asthma severity: mild intermittent Asthma complication type: with status asthmaticus Qualified Code(s): J45.22 - Mild intermittent asthma with status asthmaticus (4) Cocaine dependence Qualifiers: Substance use status: in remission Qualified Code(s): F14.21 - Cocaine dependence, in remission (5) GERD (gastroesophageal reflux disease) Qualifiers: Esophagitis presence: without esophagitis Qualified Code(s): K21.9 - Gastro-esophageal reflux disease without esophagitis (6) HIV (human immunodeficiency virus infection) Comment: last cd4 count 384 pt has her own medication (7) Hypertension Qualifiers:
== END 2016-06-24 09:20 | disposition home or self-care (01) | DRG 772 ==
LOC: YASAS 09:45 → Y3E 11:59
PROVIDERS: ADMIT Psychiatry & Neurology Psychiatry; ATTEND Psychiatry & Neurology Psychiatry
PROC: HZ42ZZZ Group Counseling for Substance Abuse Treatment, Cognitive-Behavioral (ICD-10-PCS; principal; 2016-06-24)
DX: F10.230 Alcohol dependence with withdrawal, uncomplicated (principal); F14.20 Cocaine dependence, uncomplicated; F17.210 Nicotine dependence, cigarettes, uncomplicated; F25.9 Schizoaffective disorder, unspecified; I10 Essential (primary) hypertension; J45.22 Mild intermittent asthma with status asthmaticus; K21.9 Gastro-esophageal reflux disease without esophagitis; Z21 Asymptomatic human immunodeficiency virus [HIV] infection status
CPT/HCPCS: 81003

== ENCOUNTER 2016-08-26 08:18 | Inpatient (IN) | payer OTHER ==
[2016-08-26 10:59] VITALS: BMI 26.5
--- NOTE | 2016-08-26 12:29 | HP ---
CIWA Score - CIWA Score Nausea/Vomitin-Mild Nausea/No Vomiting Muscle Tremors: 4-Moderate,w/Arms Extend Anxiety: 3 Agitation: 4-Moderately Restless Paroxysmal Sweats: 3 Orientation: 0-Oriented Tacttile Disturbances: 0-None Auditory Disturbances: 0-None Visual Disturbances: 0-None Headache: 1-Very Mild CIWA-Ar Total Score: 16 Admission ROS S - HPI Chief Complaint: I am here to detox and try again. Allergies/Adverse Reactions: Allergies Allergy/AdvReac Type Severity Reaction Status Date / Time sulfamethoxazole Allergy Severe Hives Verified 08/26/16 11:50 [From Bactrim] trimethoprim [From Bactrim] Allergy Severe Hives Verified 08/26/16 11:50 History of Present Illness: pt is a 50yr old female with a long history of alcohol, cocaine dependence seeking detox for treatment. Exam Limitations: No Limitations - Ebola screening Have you traveled outside of the country in the last 21 days: No Have you had contact with anyone from an Ebola affected area: No Have you been sick,other than usual withdrawal symptoms: No - Review of Systems Constitutional: Chills, Diaphoresis, Loss of Appetite, Night Sweats, Changes in sleep EENT: reports: Tearing Respiratory: reports: Cough Cardiac: reports: Lightheadedness, Syncope GI: reports: Diarrhea, Nausea, Poor Appetite, Poor Fluid Intake, Indigestion : reports: No Symptoms Reported Musculoskeletal: reports: Back Pain, Joint Pain Integumentary: reports: Flushing, Sweating Neuro: reports: Headache, Tingling, Tremors Endocrine: reports: Excessive Sweating, Flushing, Intolerance to Cold, Intolerance to Heat Hematology: reports: No Symptoms Reported Psychiatric: reports: Judgement Intact, Mood/Affect Appropiate, Orientated x3, Agitated, Anxious Other Systems: Reviewed and Negative Patient History - Patient Medical History Hx Anemia: No Hx Asthma: Yes Hx Chronic Obstructive Pulmonary Disease (COPD): No Hx Cancer: Yes (cervical CA 1995. remission) Hx Cardiac Disorders: No Hx Congestive Heart Failure: No Hx Hypertension: Yes (Pt is on meds.) Hx Hypercholesterolemia: No Hx Pacemaker: No HX Cerebrovascular Accident: No Hx Seizures: Yes (last week ) Hx Dementia: No Hx Diabetes: No Hx Gastrointestinal Disorders: Yes (GERD) Hx Liver Disease: No Hx Genitourinary Disorders: No Hx Sexually Transmitted Disorders: No Hx Renal Disease (ESRD): No Hx Thyroid Disease: No Hx Human Immunodeficiency Virus (HIV): Yes ( HIV since 1990; did not bring medication) Hx Hepatitis C: No (2015) Hx Depression: Yes Hx Suicide Attempt: No (denies) Hx Bipolar Disorder: No Hx Schizophrenia: Yes (schizaffective disorder) - Patient Surgical History Past Surgical History: No Hx Neurologic Surgery: No Hx Cataract Extraction: No Hx Cardiac Surgery: No Hx Lung Surgery: No Hx Breast Surgery: No Hx Breast Biopsy: No Hx Abdominal Surgery: No Hx Appendectomy: No Hx Cholecystectomy: No Hx Genitourinary Surgery: No Hx Section: No Hx Orthopedic Surgery: No Hx Hysterectomy: No Other Surgical History: IN 2004, LEEP PROCEDURE FOR CERVIX CANCER 1995 Anesthesia Reaction: Yes - PPD History Previous Implant?: Yes Documented Results: Negative w/o proof Implanted On Prior R Admission?: Yes Results: 0 MM PPD to be Administered?: No - Reproductive History Patient is a Female of Child Bearing Age (11 -55 yrs old): Yes Last Menstrual Period: 08/19/16 Patient : No - Smoking Cessation Smoking history: Current every day smoker Have you smoked in the past 12 months: Yes Aproximately how many cigarettes per day: 20 Hx Chewing Tobacco Use: No Initiated information on smoking cessation: Yes 'Breaking Loose' booklet given: 08/26/16 - Substance & Tx. History Hx Alcohol Use: Yes Hx Substance Use: Yes Substance Use Type: Alcohol Hx Substance Use Treatment: No - Substances Abused Alcohol Route: Oral Frequency: Daily Amount used: 1 QT VODKA Age of first use: 15 Date of Last Use: 08/25/16 Crack Route: Smoking Frequency: Daily Amount used: $300 Age of first use: 17 Date of Last Use: 08/26/16 Family Disease History - Family Disease History Family Disease History: CA: Mother (,ca of stomach), Other: Father ( cirhossis of [place] ) Admission Physical Exam S - Vital Signs Vital Signs: Vital Signs - 24 hr 08/26/16 10:57 Temperature 96.4 F L Pulse Rate 77 Respiratory 18 Rate Blood Pressure 140/86 - Physical General Appearance: Yes: Appropriately Dressed, Moderate Distress, Tremorous, Irritable, Sweating, Anxious HEENTM: Yes: Hearing grossly Normal, Nasal Congestion Respiratory: Yes: Lungs Clear, Normal Breath Sounds, No Respiratory Distress Neck: Yes: No masses,lesions,Nodules Breast: Yes: Within Normal Limits Cardiology: Yes: Regular Rhythm, Regular Rate, S1, S2 Abdominal: Yes: Normal Bowel Sounds, Non Tender, Soft Genitourinary: Yes: Within Normal Limits Back: Yes: Normal Inspection Musculoskeletal: Yes: full range of Motion, Back pain Extremities: Yes: Normal Capillary Refill, Normal Inspection, Tremors Neurological: Yes: Fully Oriented, Alert, Normal Response Integumentary: Yes: Normal Color, Diaphoresis Lymphatic: Yes: Within Normal Limits - Diagnostic (1) HIV (human immunodeficiency virus infection) Current Visit: Yes Status: Chronic Comment: on Genvoya; states takes meds daily, sees dr. farnsworth, she did not bring it this time. (2) Asthma Current Visit: Yes Status: Chronic Qualifiers: Asthma severity: mild intermittent Asthma complication type: with status asthmaticus Qualified Code(s): J45.22 - Mild intermittent asthma with status asthmaticus (3) Cocaine dependence Current Visit: Yes Status: Chronic Qualifiers: Substance use status: in remission Qualified Code(s): F14.21 - Cocaine dependence, in remission (4) GERD (gastroesophageal reflux disease) Current Visit: Yes Status: Chronic Qualifiers: Esophagitis presence: without esophagitis Qualified Code(s): K21.9 - Gastro-esophageal reflux disease without esophagitis Comment: refill omeprazole; discussed dietary/lifestyle modifications, avoid nsaids; states she has seen GI for problem (5) Hypertension Current Visit: No Status: Chronic Qualifiers: Comment: cont meds. (6) Nicotine dependence Current Visit: Yes Status: Chronic Qualifiers: Nicotine product type: cigarettes Substance use status: uncomplicated Qualified Code(s): F17.210 - Nicotine dependence, cigarettes, uncomplicated Comment: discussed smoking cessation; pt understands risks; states she is not ready to quit at this time Cleared for Admission S - Detox or Rehab S Level of Care: Medically Managed Detox Regimen/Protocol: Librium [facility] Breath Alcohol Content Breath Alcohol Content: 0 Urine Drug Screen - Results Drug Screen Negative: No Urine Drug Screen Results: MARISELA-Cocaine
[2016-08-26] MEDS ORDERED: NICOTINE POLACRILEX 4 MG GUM BC PRN (12:40)
[2016-08-26] MEDS ORDERED: MENTHOL/PHENOL 1 EACH UD MM PRN (12:40)
[2016-08-26] MEDS ORDERED: diphenhydrAMINE HCL 50 MG CAPSULE PO PRN (12:40)
[2016-08-26] MEDS ORDERED: MAGNESIUM CITRATE 300 ML BOTTLE PO PRN (12:40)
[2016-08-26] MEDS ORDERED: guaiFENesin/D-METHORPHAN HB 10 ML UNIT-DOSE CUPS PO PRN (12:40)
[2016-08-26] MEDS ORDERED: ACETAMINOPHEN 325 MG TABLET (FP) PO PRN (12:40)
[2016-08-26] MEDS ORDERED: chlordiazePOXIDE HCL 25 MG CAPSULE PO PRN (12:40)
[2016-08-26] MEDS ORDERED: IBUPROFEN 400 MG TABLET (FP) PO PRN (12:40)
[2016-08-26] MEDS ORDERED: P-EPHED 60MG/TRIPROLIDI 2.5MG TABLET PO PRN (12:40)
[2016-08-26] MEDS ORDERED: MAG HYDROX/AL HYDROX/SIMETH 30 ML UNIT-DOSE CUP PO PRN (12:40)
[2016-08-26] MEDS ORDERED: MAGNESIUM HYDROX 2400MG/30ML ORAL SUSPENSION 30 ML CUP PO PRN (12:40)
[2016-08-26] MEDS ORDERED: hydrOXYzine PAMOATE 50 MG CAPSULE (FP) PO PRN (12:40)
[2016-08-26] MEDS ORDERED: LOPERAMIDE HCL 2 MG CAPSULE PO PRN (12:40)
[2016-08-26] MEDS ORDERED: chlordiazePOXIDE HCL 25 MG CAPSULE PO ONE (13:15)
--- NOTE | 2016-08-26 13:23 | CONSULT ---
[facility] Psychiatric Consult - Data Date of interview: 08/26/16 Admission source: [facility] Identifying data: This is one of multiple admissions to [facility] for this 50 y/ o AA female seeking detox treatment on for alcohol and cocaine dependence.Patient is a single,a mother of three,domiciled,unemployed and supported on SSI benefits. Substance Abuse History: - Smoking Cessation. Smoking history: Current every day smoker. Have you smoked in the past 12 months: Yes. Aproximately how many cigarettes per day: 20. Hx Chewing Tobacco Use: No. Initiated information on smoking cessation: Yes. 'Breaking Loose' booklet given: 08/26/16. - Substance & Tx. History. Hx Alcohol Use: Yes. Hx Substance Use: Yes. Substance Use Type : Alcohol. Hx Substance Use Treatment: No. - Substances Abused. Alcohol. Route: Oral. Frequency: Daily. Amount used: 1 QT VODKA. Age of first use: 15. Date of Last Use: 08/25/16. Crack. Route: Smoking. Frequency: Daily. Amount used: $300. Age of first use: 17. Date of Last Use: 08/26/16. Confirmed by patient. Medical History: HIV infection since 1990 (on ART meds),hypertension,seizure disorder,GERD and a history of cervical cancer (in remission since 1995). Psychiatric History: Post- psychosis was the initial psychiatric event in her lifetime (1990).Patient admits to a history of multiple psychiatric hospitalizations.Known to [facility].Currently treated under the diagnosis of Schizoaffective Disorder.Ms Briceño is maintained on haloperidol decanoate 200 mg IM every month (received her injection on 08/20/16 as per self-report) and cogentin 1 mg po bid.No history of suicide attempts. Physical/Sexual Abuse/Trauma History: Not discussed. Additional Comment: Urine Drug Screen Results: MARISELA-Cocaine.Noted. Mental Status Exam - Mental Status Exam Alert and Oriented to: Time, Place, Person Cognitive Function: Good Patient Appearance: Well Groomed Mood: Hopeful, Euthymic Affect: Appropriate, Normal Range Patient Behavior: Fatigued, Appropriate, Cooperative Speech Pattern: Clear, Appropriate Voice Loudness: Normal Thought Process: Goal Oriented Thought Disorder: Not Present Hallucinations: Denies Suicidal Ideation: Denies Homicidal Ideation: Denies Insight/Judgement: Fair Sleep: Fair Appetite: Good Muscle strength/Tone: Normal Gait/Station: Normal Psychiatric Findings - Problem List ([place] 1, 2,3) (1) Schizoaffective disorder Current Visit: Yes Status: Chronic Comment: on haldol, cogentin; continue f/u with psych (2) Cocaine dependence Current Visit: Yes Status: Acute Qualifiers: Substance use status: in remission Qualified Code(s): F14.21 - Cocaine dependence, in remission (3) Alcohol dependence with uncomplicated withdrawal Current Visit: Yes Status: Chronic (4) Nicotine dependence Current Visit: Yes Status: Acute Qualifiers: Nicotine product type: cigarettes Substance use status: uncomplicated Qualified Code(s): F17.210 - Nicotine dependence, cigarettes, uncomplicated Comment: discussed smoking cessation; pt understands risks; states she is not ready to quit at this time (5) Asthma Current Visit: Yes Status: Chronic Qualifiers: Asthma severity: mild intermittent Asthma complication type: with status asthmaticus Qualified Code(s): J45.22 - Mild intermittent asthma with status asthmaticus (6) Dyspepsia Current Visit: Yes Status: Chronic Comment: refill prilosec, dietary precautions reviewed. she declines routine labs for crcl/lft's/electrolytes today. urge hydration, bland diet. prn mylanta. advised to go to er if symptoms persist/worsen or if acute abd pain, f/ c. she verbalized understanding and agreement. (7) GERD (gastroesophageal reflux disease) Current Visit: Yes Status: Chronic Qualifiers: Esophagitis presence: without esophagitis Qualified Code(s): K21.9 - Gastro-esophageal reflux disease without esophagitis Comment: refill omeprazole; discussed dietary/lifestyle modifications, avoid nsaids; states she has seen GI for problem (8) HIV (human immunodeficiency virus infection) Current Visit: Yes Status: Chronic Comment: on Genvoya; states takes meds daily, sees dr. farnsowrth, she did not bring it this time. (9) Hypertension Current Visit: Yes Status: Chronic Qualifiers: Comment: cont meds. - Initial Treatment Plan Initial Treatment Plan: Psychoeducation.Detoxification.Cogentin 1 mg po bid.Ordered.Patient is made aware of side effects/benefits.Educated about potential for blurred vision,constipation,urinary hesitancy and dry mouth.She is in agreeement with this careplan.Observation.
[2016-08-26] MEDS: chlordiazePOXIDE HCL 25 MG CAPSULE PO SCH ×2 (17:05→22:17)
[2016-08-26 17:40] LABS: URINE APPEARANCE CLEAR; URINE BILIRUBIN NEGATIVE (NEGATIVE); URINE BLOOD NEGATIVE (NEGATIVE); URINE COLOR LTYELLOW; URINE GLUCOSE (UA) NEGATIVE (NEGATIVE); URINE KETONE NEGATIVE (NEGATIVE); URINE NITRITE NEGATIVE (NEGATIVE); URINE PROTEIN NEGATIVE (NEGATIVE); URINE UROBILINOGEN NEGATIVE E.U./dl (0.2-1.0)
[2016-08-26 17:42] LABS: URINE LEUK ESTERASE 2+ (NEGATIVE)
[2016-08-26 18:12] LABS: URINE WBC 2 /hpf (3-5)
[2016-08-26] MEDS: LACOSAMIDE 50 MG TABLET PO SCH (22:17)
[2016-08-26] MEDS: THIAMINE HCL 100 MG TABLET (FP) PO SCH (22:17)
[2016-08-26] MEDS: BENZTROPINE MESYLATE 1 MG TABLET (FP) PO SCH (22:17)
[2016-08-27] MEDS: chlordiazePOXIDE HCL 25 MG CAPSULE PO SCH ×4 (05:22→22:21)
[2016-08-27 10:03] LABS: MCH 28.9 pg (25.7-33.7); MCHC 34.1 g/dl (32.0-36.0); MEAN CELL VOLUME 84.9 fl (80-96); MEAN PLT VOLUME 9.1 fl (7.5-11.1); PLATELET COUNT 262 K/MM3 (134-434); WHITE BLOOD COUNT 5.1 K/mm3 (4.0-10.0)
--- NOTE | 2016-08-27 10:25 | PN ---
S CIWA - CIWA Score Nausea/Vomitin Muscle Tremors: 2 Anxiety: 2 Agitation: 2 Paroxysmal Sweats: 3 Orientation: 0-Oriented Tacttile Disturbances: 2-Mild Itch/Numbness/Burn Auditory Disturbances: 0-None Visual Disturbances: 0-None Headache: 0-None Present CIWA-Ar Total Score: 13 S Progress Note (SOAP) Subjective: interrupted sleep, sweats Objective: 08/27/16 10:23 Vital Signs Temperature 97.9 F 08/27/16 06:33 Pulse Rate 55 L 08/27/16 06:33 Respiratory Rate 18 08/27/16 06:33 Blood Pressure 94/66 08/27/16 06:33 O2 Sat by Pulse Oximetry (%) Laboratory Tests 08/26/16 08/27/16 14:00 06:00 WBC 5.1 RBC 4.23 Hgb 12.2 Hct 35.9 MCV 84.9 MCHC 34.1 RDW 16.0 H Plt Count 262 MPV 9.1 Urine Color Ltyellow Urine Appearance Clear Urine pH 5.0 Ur Specific [place] <= 1.005 Urine Protein Negative Urine Glucose (UA) Negative Urine Ketones Negative Urine Blood Negative Urine Nitrite Negative Urine Bilirubin Negative Urine Urobilinogen Negative Ur Leukocyte Esterase 2+ H Urine RBC None Urine WBC 2 Ur Epithelial Cells Rare pending labs pt aox3 in nad ambulating Assessment: 08/27/16 10:24 withdrawal sx's 08/27/16 10:24 Plan: cont. detox increase fluids f/up pending labs
[2016-08-27] MEDS: PANTOPRAZOLE 40 MG TABLET (FP) PO SCH (10:32)
[2016-08-27] MEDS: LACOSAMIDE 50 MG TABLET PO SCH ×2 (10:32→22:21)
[2016-08-27] MEDS: BENZTROPINE MESYLATE 1 MG TABLET (FP) PO SCH ×2 (10:32→22:21)
[2016-08-27] MEDS: HYDROCHLOROTHIAZIDE 12.5 MG CAPSULE (FP) PO SCH (10:32)
[2016-08-27] MEDS: LISINOPRIL 10 MG TABLET (FP) PO SCH (10:32)
[2016-08-27] MEDS: PRENATAL VITAMINS W/ FOLIC ACID TABLET (FP) PO SCH (10:32)
[2016-08-27] MEDS: NICOTINE 21 MG/24 HOURS TOPICAL PATCH TD SCH (10:33)
[2016-08-27 11:16] LABS: ALBUMIN 4.1 g/dl (3.4-5.0); BILIRUBIN,TOTAL 0.4 mg/dL (0.2-1.0); CALCIUM 9.2 mg/dL (8.5-10.1); COCKROFT - GAULT 71.434; TOT PROT 7.9 g/dl (6.4-8.2)
--- NOTE | 2016-08-27 11:46 | EKG ---
Test Reason : Blood Pressure : / mmHG Vent. Rate : 069 BPM Atrial Rate : 069 BPM P-R Int : 178 ms QRS Dur : 094 ms QT Int : 422 ms P-R-T Axes : 071 075 045 degrees QTc Int : 452 ms NORMAL SINUS RHYTHM POSSIBLE LEFT ATRIAL ENLARGEMENT T WAVE ABNORMALITY, CONSIDER ANTERIOR ISCHEMIA ABNORMAL ECG WHEN COMPARED WITH ECG OF 18-JUN-2016 17:42, NO SIGNIFICANT CHANGE WAS FOUND Confirmed by NIDA UPTON, SCOTT ([id number]) on 08/27/2016 11:45:47 AM Referred By: Confirmed By:SCOTT ALVA MD
[2016-08-27] MEDS: THIAMINE HCL 100 MG TABLET (FP) PO SCH (22:19)
[2016-08-28] MEDS: chlordiazePOXIDE HCL 25 MG CAPSULE PO SCH ×2 (06:31→10:41)
--- NOTE | 2016-08-28 10:24 | PN ---
[facility] CIWA - CIWA Score Nausea/Vomitin-No Nausea/No Vomiting Muscle Tremors: 3 Anxiety: 3 Agitation: 3 Paroxysmal Sweats: 3 Orientation: 0-Oriented Tacttile Disturbances: 0-None Auditory Disturbances: 0-None Visual Disturbances: 0-None Headache: 0-None Present CIWA-Ar Total Score: 12 S Progress Note (SOAP) Subjective: shakes sweats interrupted sleep Objective: 08/28/16 10:21 Vital Signs Temperature 97.5 F L 08/28/16 06:38 Pulse Rate 58 L 08/28/16 06:38 Respiratory Rate 18 08/28/16 06:38 Blood Pressure 103/67 08/28/16 06:38 O2 Sat by Pulse Oximetry (%) Laboratory Tests 08/26/16 08/27/16 08/27/16 14:00 06:00 06:00 WBC 5.1 RBC 4.23 Hgb 12.2 Hct 35.9 MCV 84.9 MCHC 34.1 RDW 16.0 H Plt Count 262 MPV 9.1 Sodium 140 Potassium 3.7 Chloride 101 Carbon Dioxide 26 Anion Gap 13 BUN 9 D Creatinine 1.0 Creat Clearance w eGFR 59.18 Random Glucose 86 Calcium 9.2 Total Bilirubin 0.4 D AST 35 D ALT 24 Alkaline Phosphatase 67 Total Protein 7.9 D Albumin 4.1 D Urine Color Ltyellow Urine Appearance Clear Urine pH 5.0 Ur Specific [place] <= 1.005 Urine Protein Negative Urine Glucose (UA) Negative Urine Ketones Negative Urine Blood Negative Urine Nitrite Negative Urine Bilirubin Negative Urine Urobilinogen Negative Ur Leukocyte Esterase 2+ H Urine RBC None Urine WBC 2 Ur Epithelial Cells Rare RPR Titer 08/27/16 06:00 WBC RBC Hgb Hct MCV MCHC RDW Plt Count MPV Sodium Potassium Chloride Carbon Dioxide Anion Gap BUN Creatinine Creat Clearance w eGFR Random Glucose Calcium Total Bilirubin AST ALT Alkaline Phosphatase Total Protein Albumin Urine Color Urine Appearance Urine pH Ur Specific [place] Urine Protein Urine Glucose (UA) Urine Ketones Urine Blood Urine Nitrite Urine Bilirubin Urine Urobilinogen Ur Leukocyte Esterase Urine RBC Urine WBC Ur Epithelial Cells RPR Titer Nonreactive awake/alert ambulating no acute distress Assessment: 08/28/16 10:23 withdrawal sx Plan: continue detox increase fluids
[2016-08-28] MEDS: LISINOPRIL 10 MG TABLET (FP) PO SCH (10:41)
[2016-08-28] MEDS: HYDROCHLOROTHIAZIDE 12.5 MG CAPSULE (FP) PO SCH (10:41)
[2016-08-28] MEDS: PANTOPRAZOLE 40 MG TABLET (FP) PO SCH (10:41)
[2016-08-28] MEDS: BENZTROPINE MESYLATE 1 MG TABLET (FP) PO SCH (10:41)
[2016-08-28] MEDS: PRENATAL VITAMINS W/ FOLIC ACID TABLET (FP) PO SCH (10:41)
[2016-08-28] MEDS: LACOSAMIDE 50 MG TABLET PO SCH (10:42)
[2016-08-28] MEDS: NICOTINE 21 MG/24 HOURS TOPICAL PATCH TD SCH (10:43)
[2016-08-28 14:22] VITALS: BP 115/69; PULSE 64; TEMP 98.4
[2016-08-28] MEDS ORDERED: chlordiazePOXIDE 5 MG CAPSULE PO SCH (17:00)
--- NOTE | 2016-08-28 20:07 | DS ---
[id number] Present History: Alcohol Dependence, Cocaine Dependence Additional Comments: patient insists to leave the unit refuses wait face to face with the provider home medication with 6 refill began Aug 25 2016 for hiv htn rhinitis and gerd Pertinent Past History: HYPERTENSION GERD SEASONAL ALLERGY hypertension hiv asthma gerd - Physical Exam Results Vital Signs: Vital Signs Temperature 98.4 F 08/28/16 14:07 Pulse Rate 64 08/28/16 14:07 Respiratory Rate 18 08/28/16 14:07 Blood Pressure 115/69 08/28/16 14:07 O2 Sat by Pulse Oximetry (%) Pertinent Admission Physical Exam Findings: withdrawal sx Laboratory Last Values WBC 5.1 K/mm3 (4.0-10.0) 08/27/16 06:00 RBC 4.23 M/mm3 (3.60-5.2) 08/27/16 06:00 Hgb 12.2 GM/dL (10.7-15.3) 08/27/16 06:00 Hct 35.9 % (32.4-45.2) 08/27/16 06:00 MCV 84.9 fl (80-96) 08/27/16 06:00 MCHC 34.1 g/dl (32.0-36.0) 08/27/16 06:00 RDW 16.0 % (11.6-15.6) H 08/27/16 06:00 Plt Count 262 K/MM3 (134-434) 08/27/16 06:00 MPV 9.1 fl (7.5-11.1) 08/27/16 06:00 Sodium 140 mmol/L (136-145) 08/27/16 06:00 Potassium 3.7 mmol/L (3.5-5.1) 08/27/16 06:00 Chloride 101 mmol/L (98-107) 08/27/16 06:00 Carbon Dioxide 26 mmol/L (21-32) 08/27/16 06:00 Anion Gap 13 (8-16) 08/27/16 06:00 BUN 9 mg/dL (7-18) D 08/27/16 06:00 Creatinine 1.0 mg/dL (0.55-1.02) 08/27/16 06:00 Creat Clearance w eGFR 59.18 (>60) 08/27/16 06:00 Random Glucose 86 mg/dL (74-106) 08/27/16 06:00 Calcium 9.2 mg/dL (8.5-10.1) 08/27/16 06:00 Total Bilirubin 0.4 mg/dL (0.2-1.0) D 08/27/16 06:00 AST 35 U/L (15-37) D 08/27/16 06:00 ALT 24 U/L (12-78) 08/27/16 06:00 Alkaline Phosphatase 67 U/L (45-117) 08/27/16 06:00 Total Protein 7.9 g/dl (6.4-8.2) D 08/27/16 06:00 Albumin 4.1 g/dl (3.4-5.0) D 08/27/16 06:00 Urine Color Ltyellow 08/26/16 14:00 Urine Appearance Clear 08/26/16 14:00 Urine pH 5.0 (5.0-8.0) 08/26/16 14:00 Ur Specific [place] <= 1.005 (1.005-1.025) 08/26/16 14:00 Urine Protein Negative (NEGATIVE) 08/26/16 14:00 Urine Glucose (UA) Negative (NEGATIVE) 08/26/16 14:00 Urine Ketones Negative (NEGATIVE) 08/26/16 14:00 Urine Blood Negative (NEGATIVE) 08/26/16 14:00 Urine Nitrite Negative (NEGATIVE) 08/26/16 14:00 Urine Bilirubin Negative (NEGATIVE) 08/26/16 14:00 Urine Urobilinogen Negative E.U./dl (0.2-1.0) 08/26/16 14:00 Ur Leukocyte Esterase 2+ (NEGATIVE) H 08/26/16 14:00 Urine RBC None /hpf (0-3) 08/26/16 14:00 Urine WBC 2 /hpf (3-5) 08/26/16 14:00 Ur Epithelial Cells Rare /hpf (FEW) 08/26/16 14:00 RPR Titer Nonreactive (NONREACTIVE) 08/27/16 06:00 lab noted - Treatment Hospital Course: Detox Protocol Followed, Responded well - Medication Discharge Medications: Ambulatory Orders Haloperidol Decanoate [Haldol Decanoate 100] 100 mg IM MONTHLY 09/16/14 Elviteg/Joyce/Emtric/Tenofo Ala [Genvoya Tablet] 1 each PO DAILY #30 tablet 05/03 Hydrochlorothiazide [Hctz -] 12.5 mg PO DAILY #30 cap 05/28/16 Lisinopril [Prinivil] 10 mg PO DAILY #30 tablet 05/28/16 Lacosamide [Vimpat -] 50 mg PO BID 06/07/16 Benztropine Mesylate [Cogentin -] 1 mg PO BID #60 06/23/16 Omeprazole 20 mg PO DAILY #30 cap 07/23/16 Loratadine [Claritin -] 10 mg PO DAILY #30 tablet 08/23/16 Benztropine Mesylate [Cogentin -] 1 mg PO BID #60 tablet 08/26/16 - Diagnosis (1) Alcohol dependence with uncomplicated withdrawal Status: Acute (2) Asthma Status: Chronic Qualifiers: Asthma severity: mild intermittent Asthma complication type: with status asthmaticus Qualified Code(s): J45.22 - Mild intermittent asthma with status asthmaticus (3) GERD (gastroesophageal reflux disease) Status: Chronic Qualifiers: Esophagitis presence: without esophagitis Qualified Code(s): K21.9 - Gastro-esophageal reflux disease without esophagitis (4) HIV (human immunodeficiency virus infection) Status: Chronic (5) Hypertension Status: Chronic Qualifiers: Hypertension type: essential hypertension Qualified Code(s): I10 - Essential (primary) hypertension - AMA Did Patient Leave Against Medical Advice: Yes
[2016-08-29] MEDS ORDERED: chlordiazePOXIDE HCL 10 MG CAPSULE PO SCH (17:00)
== END 2016-08-28 17:39 | disposition left against medical advice (07) | DRG 770 ==
LOC: YASAS 08:18 → Y6N 12:55
PROVIDERS: ADMIT Internal Medicine; ATTEND Internal Medicine
PROC: HZ2ZZZZ Detoxification Services for Substance Abuse Treatment (ICD-10-PCS; principal; 2016-08-26)
DX: F10.230 Alcohol dependence with withdrawal, uncomplicated (principal); F14.20 Cocaine dependence, uncomplicated; F17.210 Nicotine dependence, cigarettes, uncomplicated; F25.9 Schizoaffective disorder, unspecified; J45.22 Mild intermittent asthma with status asthmaticus; K21.9 Gastro-esophageal reflux disease without esophagitis; I10 Essential (primary) hypertension; R10.13 Epigastric pain; C53.9 Malignant neoplasm of cervix uteri, unspecified; Z86.69 Personal history of other diseases of the nervous system and sense organs
CPT/HCPCS: 36415; 80053; 81003; 81015; 85027; 86593; 93005; 93010

== ENCOUNTER 2018-05-28 08:10 | Day surgery (SDC) | payer OTHER ==
[2018-05-27 12:55] VITALS: BMI 37.3
[2018-05-28 10:05] VITALS: TEMP 97.5
[2018-05-28 11:01] VITALS: BP 122/83; PULSE 65
--- NOTE | 2018-05-29 19:03 | PATH ---
Surgical Pathology Report Patient Name: SAAD NIETO [facility]. Rec. #: [id number] /Age/Gender: 1965 (Age: 52) / F Account: [id number] Location: U-ENDOSCOPY Taken: 05/28/2018 Received: 05/28/2018 Reported: 05/29/2018 Physicians: Fidel Drake M.D. Specimen(s) Received A: BX ANTRUM B: BX DUODENUM C: BX BODY EROSION Clinical History History of ulcer and HIV Postoperative diagnosis: Antral polyps, erosions body Final Diagnosis A. STOMACH, ANTRUM, POLYP, BIOPSY: POLYPOID GASTRIC MUCOSA WITH MARKED SURFACE DENUDATION, FOCAL ULCERATION, AND CAUTERY ARTIFACT. IMMUNOHISTOCHEMICAL STAIN FOR H. PYLORI IS NEGATIVE. B. DUODENUM, BIOPSY: SMALL BOWEL MUCOSA WITHOUT SIGNIFICANT PATHOLOGIC FINDINGS. C. STOMACH, BODY, EROSION, BIOPSY: GASTRIC BODY MUCOSA WITH MILD CHRONIC GASTRITIS AND FOCAL EROSION. IMMUNOHISTOCHEMICAL STAIN FOR H. PYLORI IS NEGATIVE. Electronically Signed Ivon Johnson M.D. Gross Description A. Received in formalin, labeled "polyp antrum" is a [place], irregular portion of soft tissue measuring 0.5 cm. in greatest dimension. The specimen is submitted in toto in one cassette. B. Received in formalin, labeled "biopsy duodenum" are 2 [place], irregular portions of soft tissue measuring 0.5 and 0.7 cm. in greatest dimension. The specimens are submitted in toto in one cassette. C. Received in formalin, labeled "biopsy body erosion" are 2 [place], irregular portions of soft tissue measuring 0.3 and 0.4 cm. in greatest dimension. The specimens are submitted in toto in one cassette. 05/28/201805/28/2018
== END 2018-05-28 11:30 | disposition home or self-care (01) ==
LOC: JASU-ENDO 08:10
PROVIDERS: ATTEND Internal Medicine Gastroenterology
PROC: 0DB68ZX Excision of Stomach, Via Natural or Artificial Opening Endoscopic, Diagnostic (ICD-10-PCS; principal; 2018-05-28 08:45)
DX: K25.9 Gastric ulcer, unspecified as acute or chronic, without hemorrhage or perforation (principal); K31.7 Polyp of stomach and duodenum
CPT/HCPCS: 84703; 88305-TC; 88342-TC

== ENCOUNTER 2018-09-07 14:31 | Inpatient (IN) | payer OTHER ==
[2018-09-07 18:31] VITALS: BMI 29.8
--- NOTE | 2018-09-07 20:47 | HP ---
"COWS - Scale Resting Pulse: 1= [place] 81-100 Sweatin=Flushed/Facial Moisture Restless Observation: 3= Extraneous Movement Pupil Size: 1= Pupils >than Normal (Pupils = 3 mm) Bone or Joint Aches: 1= Mild Discomfort Runny Nose/ Eye Tearin= Nasal Congestion GI Upset > 30mins: 2= Nausea/Diarrhea Tremor Observation: 4= Gross Tremor/Twitching Yawning Observation: 0= None Anxiety or Irritability: 2=Irritable/Anxious Goose Flesh Skin: 3=Piloerection COWS Score: 20 CIWA Score Nausea/Vomitin-Mild Nausea/No Vomiting Muscle Tremors: 4-Moderate,w/Arms Extend Anxiety: 4-Mod. Anxious/Guarded Agitation: 4-Moderately Restless Paroxysmal Sweats: 3 (Increased facial moisture) Orientation: 1-Uncertain about Date Tacttile Disturbances: 0-None Auditory Disturbances: 0-None Visual Disturbances: 0-None Headache: 0-None Present CIWA-Ar Total Score: 17 - Admission Criteria OAS Guidelines: Admission for Medically Managed Detox: Requires at least one of the followin. CIWA greater than 12 2. Seizures within the past 24 hours 3. Delirium tremens within the past 24 hours 4. Hallucinations within the past 24 hours 5. Acute intervention needed for co occurring medical disorder 6. Acute intervention needed for co occurring psychiatric disorder 7. Severe withdrawal that cannot be handled at a lower level of care (continued vomiting, continued diarrhea, abnormal vital signs) requiring intravenous medication and/or fluids 8. Patient presents the following: CIWA greater than 12 Admission Criteria Met: Admission criteria met Admission ROS [facility] Chief Complaint: Having heroin withdrawal. Allergies/Adverse Reactions: Allergies Allergy/AdvReac Type Severity Reaction Status Date / Time sulfamethoxazole Allergy Severe Hives Verified 09/07/18 18:23 [From Bactrim] trimethoprim [From Bactrim] Allergy Severe Hives Verified 09/07/18 18:23 History of Present Illness: 52 yof presents for detox. Alcohol use began at age 15. Currently uses about 1 pint liquor daily x 2 months. Heroin use began at age 52. Started using about 2 months ago and currently uses 3-4 bags daily. No Narcan Kit at home Crack/Cocaine use began at age 12. Uses $4-500 daily. Nicotine use began at age 11. States sobriety x past 2 years. Relapsed 2 months ago. Denies blackouts or overdoses. Hx: seizures - last 1 year ago r/t substance use.Stopped seizure meds. Hx heart attack in 1988. Hx: HTN; Borderline DM (controlled by diet), Asthma (last exacerbation 1 month ago); cough x 2 months; migraine headaches; HIV +. Patient did not bring meds. MHHx: Anxiety, stress, insomnia. Denies thoughts of harming self or others. Patient Name: Marleni Briceño Date: 1965 Address: [address] [place] [address] Sex: Female Rx Written Rx Dispensed Drug Quantity Days Supply Prescriber Name 01/05/2018 02/10/2018 vimpat 50 mg tablet 60 30 Brittny Sagastume MD 11/14/2017 11/28/2017 vimpat 100 mg tablet 60 30 Citlali Rizo NP 10/31/2017 11/03/2017 vimpat 100 mg tablet 30 15 Chantal Ibrahim MD Patient Name: Marleni Briceño Date: 1965 Address: [address] [place] [id number] Sex: Female Rx Written Rx Dispensed Drug Quantity Days Supply Prescriber Name 01/05/2018 01/05/2018 vimpat 50 mg tablet 60 30 Brittny Sagastume MD Search Terms: Marleni Briceño, 1965 Search Date: 09/07/2018 08:55:07 PM States Searched: [place], [place], [place], [place], [place], [place], [place] The Drug Utilization Report below displays the controlled substance prescriptions, if any, that were dispensed in the indicated state(s). The information displayed on this report is compiled from requests submitted to other states' PMPs, and accurately reflects the information as returned by them. Blank landon indicate data not provided by other state. This report was requested by: Nahed Briceño | Reference #: [id number] Exam Limitations: No Limitations - Ebola screening Have you traveled outside of the country in the last 21 days: No Have you had contact with anyone from an Ebola affected area: No Have you been sick,other than usual withdrawal symptoms: No (Denies recent exposure to measles.) Do you have a fever: No - Review of Systems Constitutional: Chills, Diaphoresis, Changes in sleep (Difficulty falling asleep ) EENT: reports: Blurred Vision, Nose Congestion, Dental Problems (Intermittent tooth ache) Respiratory: reports: No Symptoms reported Cardiac: reports: No Symptoms Reported GI: reports: Diarrhea (watery brown.), Nausea, Vomiting, Indigestion (Hx heart burn) : reports: No Symptoms Reported Musculoskeletal: reports: Back Pain (r/t withdrawal), Other (Eveerything is hurting) Integumentary: reports: Rash (Under breats) Neuro: reports: Tremors Endocrine: reports: Increased Thirst Hematology: reports: Other (HIV +. Patient did not bring meds.) Psychiatric: reports: Judgement Intact, Orientated x3 (Unsure of exact date. Knows month and year.), Agitated, Anxious Patient History - Patient Medical History Hx Anemia: No Hx Asthma: Yes Hx Chronic Obstructive Pulmonary Disease (COPD): No Hx Cancer: Yes (cervical CA 1995. remission) Hx Cardiac Disorders: No Hx Congestive Heart Failure: No Hx Hypertension: Yes (Pt is on meds.) Hx Hypercholesterolemia: No Hx Pacemaker: No HX Cerebrovascular Accident: No Hx Seizures: Yes (05/2017) Hx Dementia: No Hx Diabetes: No Hx Gastrointestinal Disorders: Yes (GERD) Hx Liver Disease: No Hx Genitourinary Disorders: No Hx Sexually Transmitted Disorders: No Hx Renal Disease (ESRD): No Hx Thyroid Disease: No Hx Human Immunodeficiency Virus (HIV): Yes ( HIV since 1990; did not bring medication) Hx Hepatitis C: No (2015) Hx Depression: No Hx Suicide Attempt: No (denies) Hx Bipolar Disorder: No Hx Schizophrenia: Yes (schoz affective disorder) - Patient Surgical History Past Surgical History: No Hx Neurologic Surgery: No Hx Cataract Extraction: No Hx Cardiac Surgery: No Hx Lung Surgery: No Hx Breast Surgery: No Hx Breast Biopsy: No Hx Abdominal Surgery: No Hx Appendectomy: No Hx Cholecystectomy: No Hx Genitourinary Surgery: No Hx Section: No Hx Orthopedic Surgery: No Hx Hysterectomy: No Other Surgical History: IN 2004, LEEP PROCEDURE FOR CERVIX CANCER 1995 Anesthesia Reaction: Yes - PPD History Previous Implant?: Yes Implanted On Prior [facility] Admission?: Yes Date: 11/16/15 Results: 0 MM PPD to be Administered?: Yes - Reproductive History Patient is a Female of Child Bearing Age (11 -55 yrs old): Yes Last Menstrual Period: 08/19/16 Patient : No - Smoking Cessation Smoking history: Current every day smoker Have you smoked in the past 12 months: Yes Aproximately how many cigarettes per day: 10 Hx Chewing Tobacco Use: No Initiated information on smoking cessation: Yes 'Breaking Loose' booklet given: 09/07/18 - Substance & Tx. History Hx Alcohol Use: Yes Hx Substance Use: Yes Substance Use Type: Alcohol, Cocaine, Heroin Hx Substance Use Treatment: Yes (detox, rehab) - Substances abused Heroin Other (specify): SNIFF Frequency: Daily Amount used: 2-3 bags Age of first use: 52 Date of last use: 09/07/18 Alcohol Substance route: Oral Frequency: Daily Amount used: 1 PINT VODKA Age of first use: 15 Date of last use: 09/07/18 Family Disease History - Family Disease History Family Disease History: CA: Mother (,ca of stomach), Other: Father ( cirhossis of lliver ) Admission Physical Exam [facility] - Vital Signs Vital Signs: Vital Signs - 24 hr 09/07/18 09/07/18 18:26 19:55 Temperature 98.0 F 98.0 F Pulse Rate 82 82 Respiratory 18 18 Rate Blood Pressure 113/70 113/70 - Physical General Appearance: Yes: Nourished, Mild Distress, Tremorous, Sweating ( Increased facial moisture) HEENTM: Yes: EOMI, Hearing grossly Normal, Normal ENT Inspection, Normocephalic , Normal Voice, JONNY (Pupils = 3 mm), Pharynx Normal Respiratory: Yes: Lungs Clear, Normal Breath Sounds, No Respiratory Distress Neck: Yes: No masses,lesions,Nodules, Supple Breast: Yes: Other (Moistness under breast folds. Slight papaular elevations,) Cardiology: Yes: Regular Rhythm, Regular Rate, S1, S2 Abdominal: Yes: Non Tender, Soft, Increased Bowel Sounds Genitourinary: Yes: Within Normal Limits Back: Yes: Normal Inspection Musculoskeletal: Yes: full range of Motion, Gait Steady Extremities: Yes: Normal Capillary Refill, Normal Range of Motion, Non-Tender, Tremors (Increased tremors hands) Neurological: Yes: strapper II-XII NML intact, Alert, Motor Strength 5/5, Normal Mood /Affect Integumentary: Yes: Normal Color, Warm Lymphatic: Yes: Within Normal Limits - Diagnostic (1) History of asthma Current Visit: No Status: Chronic (2) History of gastric polyp Current Visit: Yes Status: Chronic (3) Opioid dependence with withdrawal Current Visit: Yes Status: Acute (4) DM II (diabetes mellitus, type II), controlled Current Visit: No Status: Chronic Qualifiers: Diabetes mellitus long chain beamer insulin use: without long chain beamer use Diabetes mellitus complication status: without complication Qualified Code(s): E11.9 - Type 2 diabetes mellitus without complications Comment: Controlled by diet (5) Alcohol dependence with uncomplicated withdrawal Current Visit: Yes Status: Acute (6) Cocaine dependence Current Visit: Yes Status: Acute Qualifiers: Substance use status: uncomplicated Qualified Code(s): F14.20 - Cocaine dependence, uncomplicated (7) Nicotine dependence Current Visit: Yes Status: Chronic Qualifiers: Nicotine product type: cigarettes Comment: discussed smoking cessation; pt understands risks; states she is not ready to quit at this time (8) GERD (gastroesophageal reflux disease) Current Visit: Yes Status: Chronic Qualifiers: Esophagitis presence: without esophagitis Qualified Code(s): K21.9 - Gastro -esophageal reflux disease without esophagitis Comment: refill omeprazole; discussed dietary/lifestyle modifications, avoid nsaids; states she has seen GI for problem (9) HIV (human immunodeficiency virus infection) Current Visit: Yes Status: Chronic Qualifiers: HIV symptom status: unspecified Qualified Code(s): B20 - Human immunodeficiency virus [HIV] disease Comment: on Genvoya; states takes meds daily, sees dr. farnsworth, she did not bring it this time. (10) Hypertension Current Visit: Yes Status: Chronic Qualifiers: Hypertension type: essential hypertension Qualified Code(s): I10 - Essential (primary) hypertension Comment: cont meds. Cleared for Admission S - Detox or Rehab [facility] Level of Care: Medically Managed Detox Regimen/Protocol: Methadone/Librium Claeared for Rehab Admission: No Breathalyzer - Breathalyzer Breathalyzer: 0 Urine Drug Screen - Test Device Lot number: [id number] Expiration date: 06/04/20 - Control Is test valid?: Yes - Results Drug screen NEGATIVE: No Urine drug screen results: MARISELA-Cocaine, MOP-Opiates Inpatient Rehab Admission - Rehab Decision to Admit Inpatient rehab admission?: No"
[2018-09-07] MEDS ORDERED: MENTHOL/PHENOL 1 EACH UD MM PRN (21:19)
[2018-09-07] MEDS ORDERED: NICOTINE POLACRILEX 2 MG GUM BUC PRN (21:19)
[2018-09-07] MEDS ORDERED: IBUPROFEN 400 MG TABLET (FP) PO PRN (21:19)
[2018-09-07] MEDS ORDERED: chlordiazePOXIDE HCL 25 MG CAPSULE PO PRN (21:19)
[2018-09-07] MEDS ORDERED: MAG HYDROX/AL HYDROX/SIMETH 30 ML UNIT-DOSE CUP PO PRN (21:19)
[2018-09-07] MEDS ORDERED: ACETAMINOPHEN 325 MG TABLET (FP) PO PRN ×2 (21:19)
[2018-09-07] MEDS ORDERED: P-EPHED 60MG/TRIPROLIDI 2.5MG TABLET PO PRN (21:19)
[2018-09-07] MEDS ORDERED: guaiFENesin 200 MG/10 ML 10 ML UNIT-DOSE CUPS PO PRN (21:19)
[2018-09-07] MEDS ORDERED: MAGNESIUM CITRATE 300 ML BOTTLE PO PRN (21:19)
[2018-09-07] MEDS ORDERED: MAGNESIUM HYDROX 2400MG/30ML ORAL SUSPENSION 30 ML CUP PO PRN (21:19)
[2018-09-07] MEDS ORDERED: BISMUTH SUBSALICYLATE 524 MG/30 ML UD PO PRN (21:19)
[2018-09-07] MEDS ORDERED: cloNIDine HCL 0.1 MG TABLET PO PRN (21:19)
[2018-09-07] MEDS ORDERED: ALBUTEROL SO4 0.083% IH SOL 2.5 MG/3 ML VIAL.NEB. NEB PRN (21:24)
[2018-09-07] MEDS: MELATONIN 5 MG TABLETS PO PRN (22:27)
[2018-09-07] MEDS: chlordiazePOXIDE HCL 25 MG CAPSULE PO SCH (22:27)
[2018-09-07] MEDS: THIAMINE HCL 100 MG TABLET (FP) PO SCH (22:28)
[2018-09-07] MEDS ORDERED: METHADONE HCL 10 MG TABLET (FOR DETOX USE ONLY) PO ONE (23:00)
[2018-09-07] MEDS: NYSTATIN POWDER 100,000 UNITS/GM - 15 GM TOPICAL POWDER TP SCH (23:24)
[2018-09-08] MEDS: chlordiazePOXIDE HCL 25 MG CAPSULE PO SCH ×4 (06:20→22:16)
[2018-09-08] MEDS ORDERED: METHADONE HCL 5 MG TABLET (FOR DETOX USE ONLY) PO ONE (10:00)
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
[2018-09-08] MEDS: NYSTATIN POWDER 100,000 UNITS/GM - 15 GM TOPICAL POWDER TP SCH ×2 (10:18→22:20)
[2018-09-08] MEDS: NICOTINE 14 MG/24 HOURS TOPICAL PATCH TD SCH (10:18)
[2018-09-08 10:37] LABS: HEMOGLOBIN 11.5 GM/dL (10.7-15.3); MCH 28.9 pg (25.7-33.7); MEAN CELL VOLUME 85.2 fl (80-96); MEAN PLT VOLUME 8.9 fl (7.5-11.1); PLATELET COUNT 215 K/MM3 (134-434); RBC 3.99 M/mm3 (3.60-5.2); RDW 14.5 % (11.6-15.6); WHITE BLOOD COUNT 2.5 K/mm3 (4.0-10.0)
[2018-09-08 10:50] LABS: ALBUMIN 2.9 g/dl (3.4-5.0); BILIRUBIN,TOTAL 0.2 mg/dL (0.2-1); CALCIUM 8.9 mg/dL (8.5-10.1); CREATININE 0.8 mg/dL (0.55-1.3); POTASSIUM 3.7 mmol/L (3.5-5.1); TOT PROT 7.3 g/dl (6.4-8.2)
--- NOTE | 2018-09-08 11:02 | PN ---
[facility] CIWA - CIWA Score Nausea/Vomitin-No Nausea/No Vomiting Muscle Tremors: 3 Anxiety: 2 Agitation: 2 Paroxysmal Sweats: 3 Orientation: 0-Oriented Tacttile Disturbances: 0-None Auditory Disturbances: 0-None Visual Disturbances: 0-None Headache: 0-None Present CIWA-Ar Total Score: 10 BHS COWS - Scale Resting Pulse: 0= IL 80 or Below Sweatin= Chills/Flushing Restless Observation: 1= Difficult to Sit Still Pupil Size: 0= Normal to Room Light Bone or Joint Aches: 2= Severe Diffuse Aches Runny Nose/ Eye Tearin= Nasal Congestion GI Upset > 30mins: 1= Stomach Cramp Tremor Observation of Outstretched Hands: 1= Tremor [place], Not Seen Yawning Observation: 1= 1-2x During Session Anxiety or Irritability: 2=Irritable/Anxious Goose Flesh Skin: 0=Smooth Skin COWS Score: 10 [facility] Progress Note (SOAP) Subjective: tired body aches sweats chills last night interrupted sleep some shakes Objective: 09/08/18 11:02 Vital Signs Temperature 97.7 F 09/08/18 09:39 Pulse Rate 62 09/08/18 09:39 Respiratory Rate 18 09/08/18 09:39 Blood Pressure 127/66 09/08/18 09:39 O2 Sat by Pulse Oximetry (%) Laboratory Tests 09/08/18 09/08/18 07:00 07:00 WBC 2.5 L RBC 3.99 Hgb 11.5 Hct 34.0 MCV 85.2 MCH 28.9 MCHC 34.0 RDW 14.5 Plt Count 215 MPV 8.9 Sodium 138 Potassium 3.7 Chloride 104 Carbon Dioxide 29 Anion Gap 5 L BUN 6 L Creatinine 0.8 Est GFR (CKD-EPI)AfAm 99.63 Est GFR (CKD-EPI)NonAf 85.96 Random Glucose 80 Calcium 8.9 Total Bilirubin 0.2 AST 56 H ALT 31 Alkaline Phosphatase 69 Total Protein 7.3 Albumin 2.9 L labs noted aaox3 ambulating no acute distress Assessment: 09/08/18 11:02 withdrawal sx Plan: continue detox increase fluids
[2018-09-08] MEDS: PANTOPRAZOLE 20 MG TABLET (FP) PO SCH (11:18)
[2018-09-08] MEDS: PRENATAL VITAMINS W/ FOLIC ACID TABLET (FP) PO SCH (11:18)
--- NOTE | 2018-09-08 12:04 | EKG ---
Test Reason : Blood Pressure : / mmHG Vent. Rate : 052 BPM Atrial Rate : 052 BPM P-R Int : 150 ms QRS Dur : 090 ms QT Int : 442 ms P-R-T Axes : 071 078 067 degrees QTc Int : 411 ms SINUS BRADYCARDIA WITH SINUS ARRHYTHMIA T WAVE ABNORMALITY, CONSIDER ANTERIOR ISCHEMIA ABNORMAL ECG WHEN COMPARED WITH ECG OF 26-AUG-2016 12:33, NO SIGNIFICANT CHANGE WAS FOUND Confirmed by Ishmael Nixon MD ([id number]) on 09/08/2018 12:04:25 PM Referred By: Confirmed By:Ishmael Nixon MD
[2018-09-08] MEDS: BENZTROPINE MESYLATE 1 MG TABLET (FP) PO SCH (22:16)
[2018-09-08] MEDS: THIAMINE HCL 100 MG TABLET (FP) PO SCH (22:16)
[2018-09-08] MEDS: MELATONIN 5 MG TABLETS PO PRN (22:17)
[2018-09-09] MEDS: chlordiazePOXIDE HCL 25 MG CAPSULE PO SCH ×3 (05:21→17:19)
[2018-09-09] MEDS ORDERED: METHADONE HCL 10 MG TABLET (FOR DETOX USE ONLY) PO ONE (10:00)
[2018-09-09] MEDS: BENZTROPINE MESYLATE 1 MG TABLET (FP) PO SCH ×2 (11:03→22:29)
[2018-09-09] MEDS: PRENATAL VITAMINS W/ FOLIC ACID TABLET (FP) PO SCH (11:04)
[2018-09-09] MEDS: NICOTINE 14 MG/24 HOURS TOPICAL PATCH TD SCH (11:04)
[2018-09-09] MEDS: NYSTATIN POWDER 100,000 UNITS/GM - 15 GM TOPICAL POWDER TP SCH ×2 (11:04→22:33)
[2018-09-09] MEDS: PANTOPRAZOLE 20 MG TABLET (FP) PO SCH (11:04)
--- NOTE | 2018-09-09 11:11 | PN ---
[facility] CIWA - CIWA Score Nausea/Vomitin-No Nausea/No Vomiting Muscle Tremors: 3 Anxiety: 2 Agitation: 2 Paroxysmal Sweats: 2 Orientation: 0-Oriented Tacttile Disturbances: 0-None Auditory Disturbances: 0-None Visual Disturbances: 0-None Headache: 0-None Present CIWA-Ar Total Score: 9 BHS COWS - Scale Resting Pulse: 0= SC 80 or Below Sweatin= Chills/Flushing Restless Observation: 1= Difficult to Sit Still Pupil Size: 0= Normal to Room Light Bone or Joint Aches: 1= Mild Discomfort Runny Nose/ Eye Tearin= Nasal Congestion GI Upset > 30mins: 0= None Tremor Observation of Outstretched Hands: 1= Tremor [place], Not Seen Yawning Observation: 1= 1-2x During Session Anxiety or Irritability: 1=Feels Anxious/Irritable Goose Flesh Skin: 0=Smooth Skin COWS Score: 7 [facility] Progress Note (SOAP) Subjective: cough with phlegm tired interrupted sleep body aches Objective: 09/09/18 11:10 Vital Signs Temperature 98.2 F 09/09/18 09:37 Pulse Rate 77 09/09/18 09:37 Respiratory Rate 17 09/09/18 09:37 Blood Pressure 114/83 09/09/18 09:37 O2 Sat by Pulse Oximetry (%) Laboratory Tests 09/08/18 09/08/18 09/08/18 07:00 07:00 07:00 WBC 2.5 L RBC 3.99 Hgb 11.5 Hct 34.0 MCV 85.2 MCH 28.9 MCHC 34.0 RDW 14.5 Plt Count 215 MPV 8.9 Sodium 138 Potassium 3.7 Chloride 104 Carbon Dioxide 29 Anion Gap 5 L BUN 6 L Creatinine 0.8 Est GFR (CKD-EPI)AfAm 99.63 Est GFR (CKD-EPI)NonAf 85.96 Random Glucose 80 Calcium 8.9 Total Bilirubin 0.2 AST 56 H ALT 31 Alkaline Phosphatase 69 Total Protein 7.3 Albumin 2.9 L RPR Titer Nonreactive labs noted aaox3 lying in bed no acute distress Assessment: 09/09/18 11:10 mild withdrawals lungs assessed Plan: continue detox increase fluids mucinex ordered.
[2018-09-09] MEDS: METHOCARBAMOL 500 MG TABLET PO PRN (22:29)
[2018-09-09] MEDS: THIAMINE HCL 100 MG TABLET (FP) PO SCH (22:29)
[2018-09-09] MEDS: MELATONIN 5 MG TABLETS PO PRN (22:30)
[2018-09-09] MEDS: chlordiazePOXIDE HCL 10 MG CAPSULE PO SCH (22:31)
[2018-09-09] MEDS ORDERED: chlordiazePOXIDE HCL 10 MG CAPSULE PO PRN (23:00)
[2018-09-10] MEDS: chlordiazePOXIDE HCL 10 MG CAPSULE PO SCH ×3 (06:03→19:16)
[2018-09-10] MEDS ORDERED: METHADONE HCL 10 MG TABLET (FOR DETOX USE ONLY) ONE (09:29)
[2018-09-10] MEDS ORDERED: METHADONE HCL 5 MG TABLET (FOR DETOX USE ONLY) ONE (09:29)
[2018-09-10] MEDS ORDERED: METHADONE (DETOX) 10 MG, METHADONE (DETOX) 5 MG PO ONE (10:00)
[2018-09-10] MEDS: PANTOPRAZOLE 20 MG TABLET (FP) PO SCH (10:54)
[2018-09-10] MEDS: BENZTROPINE MESYLATE 1 MG TABLET (FP) PO SCH ×2 (10:55→22:24)
[2018-09-10] MEDS: PRENATAL VITAMINS W/ FOLIC ACID TABLET (FP) PO SCH (10:55)
[2018-09-10] MEDS: NYSTATIN POWDER 100,000 UNITS/GM - 15 GM TOPICAL POWDER TP SCH ×2 (10:55→22:25)
[2018-09-10] MEDS: NICOTINE 14 MG/24 HOURS TOPICAL PATCH TD SCH (10:55)
--- NOTE | 2018-09-10 11:48 | PN ---
[facility] CIWA - CIWA Score Nausea/Vomitin-No Nausea/No Vomiting Muscle Tremors: 2 Anxiety: 1-Mildly Anxious Agitation: 2 Paroxysmal Sweats: 1-Minimal Palms Moist Orientation: 0-Oriented Tacttile Disturbances: 0-None Auditory Disturbances: 0-None Visual Disturbances: 0-None Headache: 0-None Present CIWA-Ar Total Score: 6 S COWS - Scale Resting Pulse: 0= IL 80 or Below Sweatin=Flushed/Facial Moisture Restless Observation: 0= Sits Still Pupil Size: 0= Normal to Room Light Bone or Joint Aches: 1= Mild Discomfort Runny Nose/ Eye Tearin= None GI Upset > 30mins: 0= None Tremor Observation of Outstretched Hands: 1= Tremor [place], Not Seen Yawning Observation: 2= >3x During Session Anxiety or Irritability: 0= None Goose Flesh Skin: 0=Smooth Skin COWS Score: 6 [facility] Progress Note (SOAP) Subjective: mild anxiety tired interrupted sleep Objective: 09/10/18 11:48 Vital Signs Temperature 98.9 F 09/10/18 09:38 Pulse Rate 63 09/10/18 09:38 Respiratory Rate 18 09/10/18 09:38 Blood Pressure 101/55 L 09/10/18 09:38 O2 Sat by Pulse Oximetry (%) aaox3 ambulating no acute distress Assessment: 09/10/18 11:48 mild withdrawal sx Plan: continue detox increase fluids
[2018-09-10] MEDS: METHOCARBAMOL 500 MG TABLET PO PRN (12:37)
[2018-09-10 19:26] VITALS: BP 121/66; PULSE 62
[2018-09-10 19:42] VITALS: TEMP 98.1
--- NOTE | 2018-09-10 22:00 | PN ---
[facility] Progress Note Note: Patient evaluated after Rn reported patient is lethargic. Vital Signs Temperature 98.1 F 09/10/18 19:42 Pulse Rate 62 09/10/18 19:26 Respiratory Rate 16 09/10/18 19:26 Blood Pressure 121/66 09/10/18 19:26 O2 Sat by Pulse Oximetry (%) Patient received sitting in bed, convertible, reports feeling worry d/t owning someone money. Patietn denies any pain, SOB, vertigo, report no symptoms at this time. Patient Aox3, no acute distress no adventious breath sounds EENT WNL skin intact, no edema or erythema withdrawal symptoms continue detox continue to monitor
[2018-09-10] MEDS: THIAMINE HCL 100 MG TABLET (FP) PO SCH (22:24)
[2018-09-10] MEDS ORDERED: chlordiazePOXIDE HCL 10 MG CAPSULE PO SCH (23:00)
--- NOTE | 2018-09-11 01:48 | PN ---
[facility] Progress Note Note: PATIENT HAS ELOPED. Informed that patient eloped from the unit. Prior to elopement patient was alert and oriented and had a conversation with the nurse regarding "wanting to leave' @ 12:12 am. Staff searched facility and parking lot and unable to locate patient. Vital Signs - 24 hr 09/10/18 09/10/18 09/10/18 08:13 09:38 14:07 Temperature 98.1 F 98.9 F 97.9 F Pulse Rate 59 L 63 79 Respiratory 18 18 16 Rate Blood Pressure 127/77 101/55 L 129/96 09/10/18 09/10/18 09/10/18 17:40 19:26 19:42 Temperature 97.7 F 98.1 F Pulse Rate 79 62 Respiratory 17 16 Rate Blood Pressure 113/64 121/66 09/10/18 22:05 Temperature 98.1 F Pulse Rate 62 Respiratory 16 Rate Blood Pressure 121/66 Laboratory Last Values WBC 2.5 K/mm3 (4.0-10.0) L 09/08/18 07:00 RBC 3.99 M/mm3 (3.60-5.2) 09/08/18 07:00 Hgb 11.5 GM/dL (10.7-15.3) 09/08/18 07:00 Hct 34.0 % (32.4-45.2) 09/08/18 07:00 MCV 85.2 fl (80-96) 09/08/18 07:00 MCH 28.9 pg (25.7-33.7) 09/08/18 07:00 MCHC 34.0 g/dl (32.0-36.0) 09/08/18 07:00 RDW 14.5 % (11.6-15.6) 09/08/18 07:00 Plt Count 215 K/MM3 (134-434) 09/08/18 07:00 MPV 8.9 fl (7.5-11.1) 09/08/18 07:00 Sodium 138 mmol/L (136-145) 09/08/18 07:00 Potassium 3.7 mmol/L (3.5-5.1) 09/08/18 07:00 Chloride 104 mmol/L (98-107) 09/08/18 07:00 Carbon Dioxide 29 mmol/L (21-32) 09/08/18 07:00 Anion Gap 5 MMOL/L (8-16) L 09/08/18 07:00 BUN 6 mg/dL (7-18) L 09/08/18 07:00 Creatinine 0.8 mg/dL (0.55-1.3) 09/08/18 07:00 Est GFR (CKD-EPI)AfAm 99.63 09/08/18 07:00 Est GFR (CKD-EPI)NonAf 85.96 09/08/18 07:00 Random Glucose 80 mg/dL (74-106) 09/08/18 07:00 Calcium 8.9 mg/dL (8.5-10.1) 09/08/18 07:00 Total Bilirubin 0.2 mg/dL (0.2-1) 09/08/18 07:00 AST 56 U/L (15-37) H 09/08/18 07:00 ALT 31 U/L (13-61) 09/08/18 07:00 Alkaline Phosphatase 69 U/L (45-117) 09/08/18 07:00 Total Protein 7.3 g/dl (6.4-8.2) 09/08/18 07:00 Albumin 2.9 g/dl (3.4-5.0) L 09/08/18 07:00 RPR Titer Nonreactive (NONREACTIVE) 09/08/18 07:00 Labs reviewed.
[2018-09-11] MEDS ORDERED: METHADONE HCL 5 MG TABLET (FOR DETOX USE ONLY) PO ONE (06:00)
--- NOTE | 2018-09-11 07:13 | DS ---
[facility] Detox Discharge Summary Admission Date: 09/07/18 Discharge Date: 09/11/18 (Patient Ad.) - History Present History: Alcohol Dependence, Cocaine Dependence, Opioid Dependence Additional Comments: Alcohol use began at age 15. Currently in withdrawal. Heroin use began at age 52. Currently in withdrawal. Crack/Cocaine use began at age 12. Nicotine use began at age 11. Pertinent Past History: Hx: seizures - last 1 year ago r/t substance use. Heart attack in 1988. HTN; Borderline DM, Asthma;cough x 2 months; migraine headaches; HIV +. Patient did not bring meds. MHHx: Anxiety, stress, insomnia. Denies thoughts of harming self or others. - Physical Exam Results Vital Signs: Vital Signs Temperature 98.1 F 09/10/18 22:05 Pulse Rate 62 09/10/18 22:05 Respiratory Rate 16 09/10/18 22:05 Blood Pressure 121/66 09/10/18 22:05 O2 Sat by Pulse Oximetry (%) Pertinent Admission Physical Exam Findings: Admitted for detox with presentation alcohol and opiate withdrawal symptoms. Co-occurring crack/cocaine use disorder. Laboratory Last Values WBC 2.5 K/mm3 (4.0-10.0) L 09/08/18 07:00 RBC 3.99 M/mm3 (3.60-5.2) 09/08/18 07:00 Hgb 11.5 GM/dL (10.7-15.3) 09/08/18 07:00 Hct 34.0 % (32.4-45.2) 09/08/18 07:00 MCV 85.2 fl (80-96) 09/08/18 07:00 MCH 28.9 pg (25.7-33.7) 09/08/18 07:00 MCHC 34.0 g/dl (32.0-36.0) 09/08/18 07:00 RDW 14.5 % (11.6-15.6) 09/08/18 07:00 Plt Count 215 K/MM3 (134-434) 09/08/18 07:00 MPV 8.9 fl (7.5-11.1) 09/08/18 07:00 Sodium 138 mmol/L (136-145) 09/08/18 07:00 Potassium 3.7 mmol/L (3.5-5.1) 09/08/18 07:00 Chloride 104 mmol/L (98-107) 09/08/18 07:00 Carbon Dioxide 29 mmol/L (21-32) 09/08/18 07:00 Anion Gap 5 MMOL/L (8-16) L 09/08/18 07:00 BUN 6 mg/dL (7-18) L 09/08/18 07:00 Creatinine 0.8 mg/dL (0.55-1.3) 09/08/18 07:00 Est GFR (CKD-EPI)AfAm 99.63 09/08/18 07:00 Est GFR (CKD-EPI)NonAf 85.96 09/08/18 07:00 Random Glucose 80 mg/dL (74-106) 09/08/18 07:00 Calcium 8.9 mg/dL (8.5-10.1) 09/08/18 07:00 Total Bilirubin 0.2 mg/dL (0.2-1) 09/08/18 07:00 AST 56 U/L (15-37) H 09/08/18 07:00 ALT 31 U/L (13-61) 09/08/18 07:00 Alkaline Phosphatase 69 U/L (45-117) 09/08/18 07:00 Total Protein 7.3 g/dl (6.4-8.2) 09/08/18 07:00 Albumin 2.9 g/dl (3.4-5.0) L 09/08/18 07:00 RPR Titer Nonreactive (NONREACTIVE) 09/08/18 07:00 Labs reviewed. - Treatment Hospital Course: Detox Protocol Followed (Patient was following and tolerating detox and was scheduled for discharge this a.m.), Detoxed Safely, Responded well - Medication Discharge Medications: Ambulatory Orders Haloperidol Decanoate [Haldol Decanoate 100] 100 mg IM MONTHLY 09/16/14 Benztropine Mesylate [Cogentin -] 1 mg PO BID #60 tablet 08/26/16 Albuterol Sulfate Inhaler - [Ventolin HFA Inhaler -] 1 - 2 inh PO Q4H #1 inhaler 09/03/16 Elviteg/Cob/Emtri/Tenof Alafen [Genvoya (Non-Formulary)] 1 each PO DAILY #30 tablet 12/01/17 - Diagnosis (1) History of asthma Current Visit: No Status: Chronic (2) History of gastric polyp Current Visit: Yes Status: Chronic (3) Opioid dependence with withdrawal Current Visit: Yes Status: Acute (4) DM II (diabetes mellitus, type II), controlled Current Visit: No Status: Chronic Qualifiers: Diabetes mellitus assisted insulin use: without joint terminal attack controller use Diabetes mellitus complication status: without complication Qualified Code(s): E11.9 - Type 2 diabetes mellitus without complications (5) Alcohol dependence with uncomplicated withdrawal Current Visit: Yes Status: Acute (6) Cocaine dependence Current Visit: Yes Status: Chronic Qualifiers: Substance use status: uncomplicated Qualified Code(s): F14.20 - Cocaine dependence, uncomplicated (7) Nicotine dependence Current Visit: Yes Status: Chronic Qualifiers: Nicotine product type: cigarettes (8) GERD (gastroesophageal reflux disease) Current Visit: Yes Status: Chronic Qualifiers: Esophagitis presence: without esophagitis Qualified Code(s): K21.9 - Gastro -esophageal reflux disease without esophagitis (9) HIV (human immunodeficiency virus infection) Current Visit: Yes Status: Chronic Qualifiers: HIV symptom status: unspecified Qualified Code(s): B20 - Human immunodeficiency virus [HIV] disease (10) Hypertension Current Visit: Yes Status: Chronic Qualifiers: Hypertension type: essential hypertension Qualified Code(s): I10 - Essential (primary) hypertension
== END 2018-09-11 00:10 | disposition left against medical advice (07) | DRG 770 ==
LOC: YASAS 14:31 → Y6N 21:45
PROVIDERS: ADMIT Surgery; ATTEND Surgery
PROC: HZ2ZZZZ Detoxification Services for Substance Abuse Treatment (ICD-10-PCS; principal; 2018-09-07)
DX: F11.23 Opioid dependence with withdrawal (principal); F10.230 Alcohol dependence with withdrawal, uncomplicated; F14.20 Cocaine dependence, uncomplicated; F17.210 Nicotine dependence, cigarettes, uncomplicated; F25.1 Schizoaffective disorder, depressive type; F19.282 Other psychoactive substance dependence with psychoactive substance-induced sleep disorder; Z21 Asymptomatic human immunodeficiency virus [HIV] infection status; J45.21 Mild intermittent asthma with (acute) exacerbation; I10 Essential (primary) hypertension; E11.9 Type 2 diabetes mellitus without complications; Z79.84 Long term (current) use of oral hypoglycemic drugs; K21.9 Gastro-esophageal reflux disease without esophagitis; Z86.69 Personal history of other diseases of the nervous system and sense organs
CPT/HCPCS: 36415; 80053; 85027; 86593; 93005; 93010; J0735

== ENCOUNTER 2019-01-15 17:18 | Inpatient (IN) | payer OTHER ==
[2019-01-15 19:35] VITALS: BMI 21.9
--- NOTE | 2019-01-15 20:52 | HP ---
CIWA Score Nausea/Vomitin Muscle Tremors: 2 (Mild tremors w/ arms elevated) Anxiety: 2 Agitation: 2 Paroxysmal Sweats: 3 (Increased facial moisture) Orientation: 1-Uncertain about Date Tacttile Disturbances: 0-None Auditory Disturbances: 0-None Visual Disturbances: 0-None Headache: 0-None Present CIWA-Ar Total Score: 15 - Admission Criteria OASAS Guidelines: Admission for Medically Managed Detox: Requires at least one of the followin. CIWA greater than 12 2. Seizures within the past 24 hours 3. Delirium tremens within the past 24 hours 4. Hallucinations within the past 24 hours 5. Acute intervention needed for co occurring medical disorder 6. Acute intervention needed for co occurring psychiatric disorder 7. Severe withdrawal that cannot be handled at a lower level of care (continued vomiting, continued diarrhea, abnormal vital signs) requiring intravenous medication and/or fluids 8. Patient presents the following: CIWA greater than 12 Admission Criteria Met: Admission criteria met Admitting History and Physical - Past Medical History ...LMP: 08/19/16 - Smoking History Smoking history: Current every day smoker Have you smoked in the past 12 months: Yes Aproximately how many cigarettes per day: 10 - Alcohol/Substance Use Hx Alcohol Use: Yes Admission ROS [facility] Chief Complaint: Here for alcohol detox. Having withdrawal. Allergies/Adverse Reactions: Allergies Allergy/AdvReac Type Severity Reaction Status Date / Time sulfamethoxazole Allergy Severe Hives Verified 01/15/19 19:25 [From Bactrim] trimethoprim [From Bactrim] Allergy Severe Hives Verified 01/15/19 19:25 History of Present Illness: 53 yo presents w/ alcohol withdrawal symptoms and seeking detox. Treated in [facility] for blood in stool, vomiting and dizziness. Given IV fluids, potassium, and antibiotics. STEPHENIE: 0.0 HCG: Neg UTox: = MARISELA/BUP Discharged in September and stayed sober until about 1 month ago. Alcohol use began at age 12. Currently uses about 1/2 pint liquor daily x 1 months Heroin use began at age 52. Was in [facility] OTP/ methadone clinic x 30 days for detox and graduated. States used only 1 strip Suboxone 2 days ago. Denies other opiate use. Crack/Cocaine use began at age 15. Smoked 1 week ago Nicotine use began at age 11. Smokes 1/2 to 1 PPD. Denies blackouts or overdoses. Hx: seizures - last 1 year ago r/t substance use. Not on seizure meds. Hx: HTN; Borderline DM controlled by diet, Asthma (last exacerbation 7 months ago); Hx heart attack in 1988; HIV +. States has missed doses of current meds. States has missed doses of current meds. Patient did not bring meds. States I.D. Provider is going to change current meds. EK09/07/18: Abnormal MHHx: Schizo-affective disorder. Insomnia. Denies thoughts of harming self or others. Sees a MH Provider in community. SHx: Domiciled. Unemployed. (SSI-D); Denies legals. Patient Name: Marleni Briceño Date: 1965 Address: [address] [place] [address] Sex: Female Rx Written Rx Dispensed Drug Quantity Days Supply Prescriber Name 01/05/2018 02/10/2018 vimpat 50 mg tablet 60 30 Brittny Sagastume MD Exam Limitations: No Limitations - Ebola screening Have you traveled outside of the country in the last 21 days: No Have you had contact with anyone from an Ebola affected area: No Have you been sick,other than usual withdrawal symptoms: No Do you have a fever: No - Review of Systems Constitutional: Chills, Diaphoresis, Changes in sleep (Difficulty staying asleep.), Other (States weight stable x 2 months) EENT: reports: Blurred Vision, Nose Congestion, Dental Problems (Missing teeth. Chews and swallows ok.) Respiratory: reports: SOB with Exertion (W/ walking and stair climbing) Cardiac: reports: Chest Pain (Intermittent sharp chest pain not associated w/ activity. Resolves on own) GI: reports: Constipated (Occ constipations), Nausea, Vomiting, Indigestion ( Heart burn/GERD), Abdominal cramping : reports: No Symptoms Reported Musculoskeletal: reports: No Symptoms Reported Integumentary: reports: No Symptoms Reported Neuro: reports: Numbness (In feet x 3 days ago. Gone now.) Endocrine: reports: Increased Thirst Hematology: reports: Anemia (HIV+) Psychiatric: reports: Judgement Intact, Orientated x3 (Unsure of exact date.) Patient History - Patient Medical History Hx Anemia: No Hx Asthma: Yes Hx Chronic Obstructive Pulmonary Disease (COPD): No Hx Cancer: Yes (cervical CA 1995. remission) Hx Cardiac Disorders: No Hx Congestive Heart Failure: No Hx Hypertension: Yes (Pt is on meds.) Hx Hypercholesterolemia: No Hx Pacemaker: No HX Cerebrovascular Accident: No Hx Seizures: Yes (05/2017) Hx Dementia: No Hx Diabetes: No Hx Gastrointestinal Disorders: Yes (GERD) Hx Liver Disease: No Hx Genitourinary Disorders: No Hx Sexually Transmitted Disorders: No Hx Renal Disease (ESRD): No Hx Thyroid Disease: No Hx Human Immunodeficiency Virus (HIV): Yes ( HIV since 1990; did not bring medication) Hx Hepatitis C: No (2015) Hx Depression: No Hx Suicide Attempt: No (denies) Hx Bipolar Disorder: No Hx Schizophrenia: Yes (schoz affective disorder) - Patient Surgical History Past Surgical History: No Hx Neurologic Surgery: No Hx Cataract Extraction: No Hx Cardiac Surgery: No Hx Lung Surgery: No Hx Breast Surgery: No Hx Breast Biopsy: No Hx Abdominal Surgery: No Hx Appendectomy: No Hx Cholecystectomy: No Hx Genitourinary Surgery: No Hx Section: No Hx Orthopedic Surgery: No Hx Hysterectomy: No Other Surgical History: IN 2004, LEEP PROCEDURE FOR CERVIX CANCER 1995 Anesthesia Reaction: Yes - PPD History Previous Implant?: Yes Documented Results: Negative w/proof Implanted On Prior [facility] Admission?: Yes Date: 09/09/18 Results: 0 MM PPD to be Administered?: No - Reproductive History Patient is a Female of Child Bearing Age (11 -55 yrs old): Yes Last Menstrual Period: 08/19/16 Patient : No - Smoking Cessation Smoking history: Current every day smoker Have you smoked in the past 12 months: Yes Aproximately how many cigarettes per day: 10 Hx Chewing Tobacco Use: No Initiated information on smoking cessation: Yes 'Breaking Loose' booklet given: 01/15/19 - Substance & Tx. History Hx Alcohol Use: Yes Hx Substance Use: Yes Substance Use Type: Alcohol, Cocaine, Heroin Hx Substance Use Treatment: Yes (detox, rehab, outpatient methadone detox; ) - Substances abused Heroin Other (specify): SNIFF Frequency: Daily Amount used: couple of 1 of 1 Age of first use: 52 Date of last use: 01/12/19 Alcohol Substance route: Oral Frequency: Daily Amount used: 1 PINT VODKA Age of first use: 15 Date of last use: 01/14/19 Admission Physical Exam S - Vital Signs Vital Signs: Vital Signs - 24 hr 01/15/19 19:24 Temperature 98.0 F Pulse Rate 74 Respiratory 16 Rate Blood Pressure 140/92 - Physical General Appearance: Yes: Mild Distress, Thin, Tremorous (Mild tremors w/ arms elevated), Sweating (Increased facial moisture), Anxious HEENTM: Yes: EOMI (Jerking movement of eyes upon lateral gaze), Hearing grossly Normal, Normocephalic, Normal Voice, JONNY (Pupils 1.5 mm), Pharynx Normal, Nasal Congestion Respiratory: Yes: Lungs Clear (Pulse Ox = 98 %), Normal Breath Sounds, No Respiratory Distress Neck: Yes: No masses,lesions,Nodules, Supple Breast: Yes: Breast Exam Deferred Cardiology: Yes: Regular Rhythm, Regular Rate, S1, S2 Abdominal: Yes: Non Tender, Flat, Soft, Increased Bowel Sounds Genitourinary: Yes: Within Normal Limits Back: Yes: Normal Inspection Musculoskeletal: Yes: full range of Motion, Gait Steady Extremities: Yes: Normal Capillary Refill, Tremors (Mild tremors w/ arms elevated) Neurological: Yes: gusset stitcher II-XII NML intact (Jerking movement of eyes upon lateral gaze), Fully Oriented, Alert, Motor Strength 5/5 Integumentary: Yes: Normal Color, Warm, Diaphoresis (Increased facial moisture) Lymphatic: Yes: Within Normal Limits - Diagnostic (1) Opioid use disorder, moderate, in early remission Current Visit: Yes Status: Acute (2) History of HIV infection Current Visit: Yes Status: Chronic (3) Alcohol dependence with uncomplicated withdrawal Current Visit: Yes Status: Acute (4) Cocaine dependence Current Visit: Yes Status: Chronic Qualifiers: Substance use status: uncomplicated Qualified Code(s): F14.20 - Cocaine dependence, uncomplicated (5) DM II (diabetes mellitus, type II), controlled Current Visit: Yes Status: Suspected Qualifiers: Diabetes mellitus snf insulin use: without snf use Diabetes mellitus complication status: without complication Qualified Code(s): E11.9 - Type 2 diabetes mellitus without complications Comment: Controlled by diet (6) GERD (gastroesophageal reflux disease) Current Visit: No Status: Chronic Qualifiers: Esophagitis presence: without esophagitis Qualified Code(s): K21.9 - Gastro -esophageal reflux disease without esophagitis Comment: refill omeprazole; discussed dietary/lifestyle modifications, avoid nsaids; states she has seen GI for problem (7) History of asthma Current Visit: Yes Status: Chronic (8) History of abnormal electrocardiogram Current Visit: Yes Status: Acute (9) Nicotine dependence Current Visit: Yes Status: Chronic Qualifiers: Nicotine product type: cigarettes Substance use status: uncomplicated Qualified Code(s): F17.210 - Nicotine dependence, cigarettes, uncomplicated Comment: discussed smoking cessation; pt understands risks; states she is not ready to quit at this time Cleared for Admission [facility] - Detox or Rehab [facility] Level of Care: Medically Managed Detox Regimen/Protocol: Librium Claeared for Rehab Admission: No Breathalyzer - Breathalyzer Breathalyzer: 0 Urine Drug Screen - Test Device Lot number: [id number] Expiration date: 09/04/20 - Control Is test valid?: Yes - Results Drug screen NEGATIVE: No Urine drug screen results: MARISELA-Cocaine, BUP-Suboxone Inpatient Rehab Admission - Rehab Decision to Admit Inpatient rehab admission?: No
[2019-01-15] MEDS ORDERED: MENTHOL/PHENOL 1 EACH UD MM PRN (21:18)
[2019-01-15] MEDS ORDERED: MAGNESIUM CITRATE 300 ML BOTTLE PO PRN (21:18)
[2019-01-15] MEDS ORDERED: chlordiazePOXIDE HCL 10 MG CAPSULE PO PRN (21:18)
[2019-01-15] MEDS ORDERED: IBUPROFEN 400 MG TABLET (FP) PO PRN (21:18)
[2019-01-15] MEDS ORDERED: MAGNESIUM HYDROX 2400MG/30ML ORAL SUSPENSION 30 ML CUP PO PRN (21:18)
[2019-01-15] MEDS ORDERED: MELATONIN 5 MG TABLETS PO PRN (21:18)
[2019-01-15] MEDS ORDERED: PROCHLORPERAZINE MALEATE 5 MG TABLET PO PRN (21:18)
[2019-01-15] MEDS ORDERED: ACETAMINOPHEN 325 MG TABLET (FP) PO PRN ×2 (21:18)
[2019-01-15] MEDS ORDERED: BISMUTH SUBSALICYLATE 524 MG/30 ML UD PO PRN (21:18)
[2019-01-15] MEDS ORDERED: NICOTINE POLACRILEX 2 MG GUM BUC PRN (21:18)
[2019-01-15] MEDS ORDERED: MAG HYDROX/AL HYDROX/SIMETH 30 ML UNIT-DOSE CUP PO PRN (21:18)
[2019-01-15] MEDS ORDERED: BENZTROPINE MESYLATE 1 MG TABLET (FP) PO ONE (22:00)
[2019-01-15] MEDS: THIAMINE HCL 100 MG TABLET (FP) PO SCH (23:03)
[2019-01-15] MEDS: DOCUSATE SODIUM 100 MG CAPSULE (FP) PO SCH (23:03)
[2019-01-15] MEDS: chlordiazePOXIDE HCL 25 MG CAPSULE PO SCH (23:03)
[2019-01-15] MEDS: PANTOPRAZOLE 20 MG TABLET (FP) PO SCH (23:03)
[2019-01-16] MEDS: chlordiazePOXIDE HCL 25 MG CAPSULE PO SCH ×3 (05:59→21:36)
[2019-01-16 10:07] LABS: HEMATOCRIT 33.8 % (32.4-45.2); HEMOGLOBIN 11.4 GM/dL (10.7-15.3); MCH 28.7 pg (25.7-33.7); MCHC 33.7 g/dl (32.0-36.0); MEAN CELL VOLUME 85.1 fl (80-96); MEAN PLT VOLUME 8.1 fl (7.5-11.1); PLATELET COUNT 229 K/MM3 (134-434); RBC 3.97 M/mm3 (3.60-5.2); RDW 15.8 % (11.6-15.6); WHITE BLOOD COUNT 2.3 K/mm3 (4.0-10.0)
[2019-01-16 10:25] LABS: BILIRUBIN,TOTAL 0.3 mg/dL (0.2-1); BLOOD UREA NITROGEN 9.8 mg/dL (7-18); CALCIUM 8.8 mg/dL (8.5-10.1); CREATININE 0.7 mg/dL (0.55-1.3); POTASSIUM 3.5 mmol/L (3.5-5.1); TOT PROT 7.3 g/dl (6.4-8.2)
[2019-01-16] MEDS: PANTOPRAZOLE 20 MG TABLET (FP) PO SCH ×2 (11:23→21:36)
[2019-01-16] MEDS: PRENATAL VITAMINS W/ FOLIC ACID TABLET (FP) PO SCH (11:23)
[2019-01-16] MEDS: NICOTINE 14 MG/24 HOURS TOPICAL PATCH TD SCH (11:23)
--- NOTE | 2019-01-16 13:27 | CONSULT ---
[facility] Psychiatric Consult - Data Date of interview: 01/16/19 Admission source: [facility] Identifying data: Readmission to [facility] for this 53 y/o AA female referred by the [facility] team for detoxifiication (JESSICA issues : heroin, nicotine, alcohol, cocaine). Interviewed on . Patient is a single, a mother of three, domiciled, unemployed and supported on SSI benefits. Substance Abuse History: Discussed with the patient in this interview. Details are concordant with current [facility] report as follows : Smoking history: Current every day smoker. Have you smoked in the past 12 months: Yes. Aproximately how many cigarettes per day: 10. Hx Chewing Tobacco Use: No. Initiated information on smoking cessation: Yes. 'Breaking Loose' booklet given: . - Substance & Tx. History. Hx Alcohol Use: Yes. Hx Substance Use: Yes. Substance Use Type: Alcohol, Cocaine, Heroin. Hx Substance Use Treatment: Yes ( detox, rehab, outpatient methadone detox; ). - Substances abused. Heroin. Other (specify): SNIFF. Frequency: Daily. Amount used: couple of 1 of 1. Age of first use: 52. Date of last use: 01/12/19. Alcohol. Substance route: Oral. Frequency: Daily. Amount used: 1 PINT VODKA. Age of first use: 15. Date of last use: 01/14/19 Medical History: Medical profile is remarkable for borderline diabetes mellitus , HIV infection since 1990 (on ART meds), hypertension, seizure disorder, GERD, antecedent of myocardial infarction and a history of cervical cancer (in remission since 1995). Psychiatric History: First contact with the mental health system occurred in 1990 (diagnosed with post- psychosis). Patient endorses a history of multiple psychiatric hospitalizations ([facility], [facility], [facility]). Ms Briceño is currently diagnosed with Schizoaffective Disorder. She is maintained on a regimen of haloperidol decanoate 200 mg IM every month (injection was dispensed two days ago, as per self-report) + cogentin 1 mg/bid. Followed by the [facility] team. Patient denies history of suicide attempts. Physical/Sexual Abuse/Trauma History: Patient denies history of abuse. Additional Comment: Urine drug screen results: MARISELA-Cocaine, BUP-Suboxone. Noted. Mental Status Exam - Mental Status Exam Alert and Oriented to: Time, Place, Person Cognitive Function: Grossly Intact Patient Appearance: Well Groomed (thin, frail habitus) Mood: Hopeful, Euthymic Affect: Appropriate, Normal Range Patient Behavior: Fatigued, Cooperative Speech Pattern: Clear Voice Loudness: Normal Thought Process: Goal Oriented Thought Disorder: Not Present Hallucinations: Denies Suicidal Ideation: Denies Homicidal Ideation: Denies Insight/Judgement: Poor Sleep: Well Appetite: Fair, Weight loss Gait/Station: Normal Psychiatric Findings - Problem List ([place] 1, 2,3) (1) Alcohol dependence with uncomplicated withdrawal Current Visit: Yes Status: Acute (2) Opioid use disorder Current Visit: Yes Status: Chronic (3) Cocaine dependence Current Visit: Yes Status: Chronic Qualifiers: Substance use status: uncomplicated Qualified Code(s): F14.20 - Cocaine dependence, uncomplicated (4) Nicotine dependence Current Visit: Yes Status: Chronic Qualifiers: Nicotine product type: cigarettes Substance use status: uncomplicated Qualified Code(s): F17.210 - Nicotine dependence, cigarettes, uncomplicated Comment: discussed smoking cessation; pt understands risks; states she is not ready to quit at this time (5) Schizoaffective disorder Current Visit: Yes Status: Chronic Comment: Followed by the [facility] team. On depot haloperidol + benztropine mesylate. - Initial Treatment Plan Initial Treatment Plan: Records ([facility]) revisited. Psychoeducation. Sleep hygiene. Detoxification. AA/NA meetings. Attempt made to contact the [facility] team at [phone] (patient spontaneously provided number to ) : office closed on week-ends. Ms Briceño is already known to this senior mortgage underwriter. Resumed : cogentin 0.5 mg po bid. Side effects/benefits discussed with the patient (dose reduced for mitigation of risk of impaired cognition). Patient agrees with this plan of care. Gave verbal consent to MD. Seizure precautions. Observation.
--- NOTE | 2019-01-16 13:45 | PN ---
[facility] CIWA - CIWA Score Nausea/Vomitin-No Nausea/No Vomiting Muscle Tremors: 3 Anxiety: 2 Agitation: 2 Paroxysmal Sweats: 2 Orientation: 0-Oriented Tacttile Disturbances: 0-None Auditory Disturbances: 0-None Visual Disturbances: 0-None Headache: 0-None Present CIWA-Ar Total Score: 9 S Progress Note (SOAP) Subjective: tired sleepy sweats Objective: 01/16/19 13:45 Vital Signs Temperature 98.1 F 01/16/19 09:31 Pulse Rate 67 01/16/19 09:31 Respiratory Rate 18 01/16/19 09:31 Blood Pressure 131/86 01/16/19 09:31 O2 Sat by Pulse Oximetry (%) Laboratory Tests 01/16/19 01/16/19 01/16/19 08:00 08:00 08:00 WBC 2.3 L RBC 3.97 Hgb 11.4 Hct 33.8 MCV 85.1 MCH 28.7 MCHC 33.7 RDW 15.8 H Plt Count 229 MPV 8.1 Sodium 138 Potassium 3.5 Chloride 104 Carbon Dioxide 29 Anion Gap 5 L BUN 9.8 Creatinine 0.7 Est GFR (CKD-EPI)AfAm 116.27 Est GFR (CKD-EPI)NonAf 100.32 Random Glucose 78 Calcium 8.8 Total Bilirubin 0.3 AST 34 ALT 18 Alkaline Phosphatase 65 Total Protein 7.3 Albumin 3.0 L RPR Titer Nonreactive labs noted aaox3 ambulating no acute distress Assessment: 01/16/19 13:45 withdrawals Plan: continue detox increase fluids
[2019-01-16] MEDS: DOCUSATE SODIUM 100 MG CAPSULE (FP) PO SCH (21:36)
[2019-01-16] MEDS: BENZTROPINE MESYLATE 1 MG TABLET (FP) PO SCH (21:36)
[2019-01-16] MEDS: THIAMINE HCL 100 MG TABLET (FP) PO SCH (21:37)
[2019-01-17] MEDS: chlordiazePOXIDE 5 MG CAPSULE PO SCH ×3 (06:46→21:21)
--- NOTE | 2019-01-17 08:39 | EKG ---
Test Reason : Blood Pressure : / mmHG Vent. Rate : 067 BPM Atrial Rate : 067 BPM P-R Int : 164 ms QRS Dur : 086 ms QT Int : 442 ms P-R-T Axes : 077 079 057 degrees QTc Int : 467 ms NORMAL SINUS RHYTHM POSSIBLE LEFT ATRIAL ENLARGEMENT BORDERLINE ECG WHEN COMPARED WITH ECG OF 07-SEP-2018 21:56, T WAVE INVERSION LESS EVIDENT IN ANTERIOR LEADS Confirmed by Rupinder Minaya ([id number]) on 01/17/2019 8:38:57 AM Referred By: WILLIE NIETO Confirmed By:Rupinder Minaya
[2019-01-17] MEDS: PRENATAL VITAMINS W/ FOLIC ACID TABLET (FP) PO SCH (10:44)
[2019-01-17] MEDS: NICOTINE 14 MG/24 HOURS TOPICAL PATCH TD SCH (10:44)
[2019-01-17] MEDS: BENZTROPINE MESYLATE 1 MG TABLET (FP) PO SCH ×2 (10:44→22:22)
[2019-01-17] MEDS: PANTOPRAZOLE 20 MG TABLET (FP) PO SCH ×2 (10:44→22:22)
--- NOTE | 2019-01-17 17:47 | PN ---
[facility] CIWA - CIWA Score Nausea/Vomitin-Mild Nausea/No Vomiting Muscle Tremors: 2 Anxiety: 3 Agitation: 3 Paroxysmal Sweats: 2 Orientation: 0-Oriented Tacttile Disturbances: 0-None Auditory Disturbances: 0-None Visual Disturbances: 0-None Headache: 0-None Present CIWA-Ar Total Score: 11 [facility] Progress Note (SOAP) Subjective: Chills Objective: 01/17/19 17:46 Last Vital Signs Temp Pulse Resp BP Pulse Ox 98.2 F 75 18 137/90 01/17/19 13:29 01/17/19 13:29 01/17/19 13:29 01/17/19 13:29 Laboratory Tests 01/16/19 01/16/19 01/16/19 08:00 08:00 08:00 WBC 2.3 L RBC 3.97 Hgb 11.4 Hct 33.8 MCV 85.1 MCH 28.7 MCHC 33.7 RDW 15.8 H Plt Count 229 MPV 8.1 Sodium 138 Potassium 3.5 Chloride 104 Carbon Dioxide 29 Anion Gap 5 L BUN 9.8 Creatinine 0.7 Est GFR (CKD-EPI)AfAm 116.27 Est GFR (CKD-EPI)NonAf 100.32 Random Glucose 78 Calcium 8.8 Total Bilirubin 0.3 AST 34 ALT 18 Alkaline Phosphatase 65 Total Protein 7.3 Albumin 3.0 L RPR Titer Nonreactive Labs reviewed Assessment: 01/17/19 17:46 Withdrawal sxs Plan: Continue detox Encouraged PO water intake
[2019-01-17] MEDS: THIAMINE HCL 100 MG TABLET (FP) PO SCH (22:22)
[2019-01-17] MEDS: DOCUSATE SODIUM 100 MG CAPSULE (FP) PO SCH (22:22)
[2019-01-18] MEDS ORDERED: chlordiazePOXIDE HCL 10 MG CAPSULE PO PRN
[2019-01-18] MEDS ORDERED: chlordiazePOXIDE HCL 10 MG CAPSULE PO SCH (05:00)
[2019-01-18 07:23] VITALS: BP 129/80; PULSE 125; TEMP 98.1
[2019-01-18] MEDS: BENZTROPINE MESYLATE 1 MG TABLET (FP) PO SCH (09:42)
[2019-01-18] MEDS: NICOTINE 14 MG/24 HOURS TOPICAL PATCH TD SCH (09:42)
[2019-01-18] MEDS: PANTOPRAZOLE 20 MG TABLET (FP) PO SCH (09:42)
--- NOTE | 2019-01-18 09:55 | DS ---
[facility] Detox Discharge Summary Admission Date: 01/15/19 Discharge Date: 01/18/19 - History Present History: Alcohol Dependence, Cocaine Dependence, Opioid Dependence - Physical Exam Results Vital Signs: Vital Signs Temperature 98.1 F 01/18/19 07:22 Pulse Rate 125 H 01/18/19 07:22 Respiratory Rate 18 01/18/19 07:22 Blood Pressure 129/80 01/18/19 07:22 O2 Sat by Pulse Oximetry (%) Pertinent Admission Physical Exam Findings: pt arrived in withdrawals Laboratory Tests 01/16/19 01/16/19 01/16/19 08:00 08:00 08:00 WBC 2.3 L RBC 3.97 Hgb 11.4 Hct 33.8 MCV 85.1 MCH 28.7 MCHC 33.7 RDW 15.8 H Plt Count 229 MPV 8.1 Sodium 138 Potassium 3.5 Chloride 104 Carbon Dioxide 29 Anion Gap 5 L BUN 9.8 Creatinine 0.7 Est GFR (CKD-EPI)AfAm 116.27 Est GFR (CKD-EPI)NonAf 100.32 Random Glucose 78 Calcium 8.8 Total Bilirubin 0.3 AST 34 ALT 18 Alkaline Phosphatase 65 Total Protein 7.3 Albumin 3.0 L RPR Titer Nonreactive today pt is aaox3 ambulating no acute distress no s/s of withdrawals - Treatment Hospital Course: Detox Protocol Followed, Detoxed Safely, Responded well, Discharged Condition Good, Rehab Referral Accepted Patient has Accepted a Rehab Referral to: referral provided; declined rehab - Medication Discharge Medications: Ambulatory Orders Haloperidol Decanoate [Haldol Decanoate 100] 100 mg IM MONTHLY 09/16/14 Benztropine Mesylate [Cogentin -] 1 mg PO BID #60 tablet 08/26/16 Albuterol Sulfate Inhaler - [Ventolin HFA Inhaler -] 1 - 2 inh PO Q4H #1 inhaler 09/03/16 Elviteg/Cob/Emtri/Tenof Alafen [Genvoya (Non-Formulary)] 1 each PO DAILY #30 tablet 03/07/17 - Diagnosis (1) Alcohol dependence with uncomplicated withdrawal Current Visit: Yes Status: Chronic (2) History of abnormal electrocardiogram Current Visit: Yes Status: Acute (3) Cocaine dependence Current Visit: Yes Status: Chronic Qualifiers: Substance use status: uncomplicated Qualified Code(s): F14.20 - Cocaine dependence, uncomplicated (4) History of HIV infection Current Visit: Yes Status: Chronic (5) History of asthma Current Visit: Yes Status: Chronic (6) Nicotine dependence Current Visit: Yes Status: Chronic Qualifiers: Nicotine product type: cigarettes Substance use status: uncomplicated Qualified Code(s): F17.210 - Nicotine dependence, cigarettes, uncomplicated (7) Opioid use disorder, moderate, in early remission Current Visit: Yes Status: Chronic (8) Schizoaffective disorder Current Visit: Yes Status: Chronic Qualifiers: Schizoaffective disorder type: unspecified Qualified Code(s): F25.9 - Schizoaffective disorder, unspecified (9) DM II (diabetes mellitus, type II), controlled Current Visit: Yes Status: Suspected Qualifiers: Diabetes mellitus clinical registered nurse insulin use: without clinical registered nurse use Diabetes mellitus complication status: without complication Qualified Code(s): E11.9 - Type 2 diabetes mellitus without complications (10) Opioid dependence with withdrawal Current Visit: Yes Status: Chronic (11) Schizoaffective disorder with good prognostic features Current Visit: No Status: Acute (12) Substance-induced sleep disorder Current Visit: No Status: Acute (13) Asthma Current Visit: Yes Status: Chronic Qualifiers: Asthma severity: mild intermittent Asthma complication type: with status asthmaticus (14) GERD (gastroesophageal reflux disease) Current Visit: Yes Status: Chronic Qualifiers: Esophagitis presence: without esophagitis Qualified Code(s): K21.9 - Gastro -esophageal reflux disease without esophagitis (15) HIV (human immunodeficiency virus infection) Current Visit: Yes Status: Chronic Qualifiers: HIV symptom status: unspecified Qualified Code(s): B20 - Human immunodeficiency virus [HIV] disease (16) Hypertension Current Visit: No Status: Chronic Qualifiers: Hypertension type: essential hypertension Qualified Code(s): I10 - Essential (primary) hypertension (17) Schizoaffective disorder, depressive type Current Visit: No Status: Chronic - AMA Did Patient Leave Against Medical Advice: No
[2019-01-19] MEDS ORDERED: chlordiazePOXIDE HCL 10 MG CAPSULE PO ONE (05:00)
== END 2019-01-18 10:02 | disposition home or self-care (01) | DRG 773 ==
LOC: YASAS 17:18 → Y6N 21:45
PROVIDERS: ADMIT Allergy & Immunology; ATTEND Allergy & Immunology
PROC: HZ2ZZZZ Detoxification Services for Substance Abuse Treatment (ICD-10-PCS; principal; 2019-01-15)
DX: F10.230 Alcohol dependence with withdrawal, uncomplicated (principal); F11.23 Opioid dependence with withdrawal; F14.20 Cocaine dependence, uncomplicated; F17.210 Nicotine dependence, cigarettes, uncomplicated; F25.1 Schizoaffective disorder, depressive type; F25.9 Schizoaffective disorder, unspecified; F19.282 Other psychoactive substance dependence with psychoactive substance-induced sleep disorder; Z21 Asymptomatic human immunodeficiency virus [HIV] infection status; I10 Essential (primary) hypertension; E11.9 Type 2 diabetes mellitus without complications; J45.22 Mild intermittent asthma with status asthmaticus; K21.9 Gastro-esophageal reflux disease without esophagitis; R94.31 Abnormal electrocardiogram [ECG] [EKG]; Z88.2 Allergy status to sulfonamides
CPT/HCPCS: 36415; 80053; 81025; 85027; 86593; 93005; 93010

== ENCOUNTER 2019-04-28 11:55 | Inpatient (IN) | payer OTHER ==
[2019-04-28 12:25] VITALS: BMI 24.8
--- NOTE | 2019-04-28 13:16 | PDOC ---
History of Present Illness - General Chief Complaint: Pain Stated Complaint: SENT BY PCP/ ABN. LABS - History of Present Illness Initial Comments: 04/28/19 13:16 HPI: 53 y/o F with hx of HIV (last CD4 374, viral load 12 2 days ago), seizures, HTN , cervical ca s/p radiation now in remission, schizoaffective disorder presenting from [facility] for elevated LFTs. Patient states her levels were taken last week and they were in the 100s and were repeated 2 days ago and are now in the 1000s. She also reports RLQ pain x3 days that is sharp and intermittent without radiation and improved with BM; she reports feeling constipated and gassy and attributed her pain to that. She also reports dark urine for a few days. She denies fever, chills, chest pain, SOB, leg swelling, n /v, diarrea, dysuria, hematuria. She does reports generalized weakness for the past month and feels like her leg muslces have been wasting; denies focal weakness PMHx: as noted above ROS: as noted SHx: 1/2 ppd tobacco use; minimal alcohol use; hx of heroine and cocaine Allergies: NKDA ROS: GENERAL/CONSTITUTIONAL: No fever or chills. +generalized weakness. HEAD, EYES, EARS, NOSE AND THROAT: No change in vision. No ear pain or discharge. No sore throat. CARDIOVASCULAR: No chest pain or shortness of breath RESPIRATORY: No cough, wheezing, or hemoptysis. GASTROINTESTINAL: No nausea, vomiting, diarrhea GENITOURINARY: No dysuria, frequency, or change in urination. MUSCULOSKELETAL: No joint or muscle swelling or pain. No neck or back pain. SKIN: No rash NEUROLOGIC: No headache, vertigo, loss of consciousness, or change in strength/ sensation. ENDOCRINE: No increased thirst. No abnormal weight change HEMATOLOGIC/LYMPHATIC: No anemia, easy bleeding, or history of blood clots. ALLERGIC/IMMUNOLOGIC: No hives or skin allergy. PE: GENERAL: Awake, alert, and fully oriented, no acute distress HEAD: No signs of trauma, normocephalic, atraumatic EYES: EOMI, sclera anicteric, conjunctiva clear ENT: Auricles normal inspection, hearing grossly normal, nares patent, oropharynx clear without exudates. Moist mucosa NECK: Normal ROM, no lymphadenopathy LUNGS: No increased work of breathing, symmetrical chest rise, clear to auscultation bilaterally, no wheezes, crackles or rhonchi HEART: Regular rate, regular rhythm, normal S1 and S2, no murmur, peripheral pulses 2+ and equal bilaterally. ABDOMEN: Soft, nondistended, nontender, normoactive bowel sounds. No guarding, no rebound. No masses. No CVAT MUSCULOSKELETAL: Normal inspection, FROM NEUROLOGICAL: Cranial nerves II through XII grossly intact. Normal speech, normal gait, no focal sensorimotor deficits SKIN: Warm, Dry, normal turgor, no rashes or lesions noted Past History - Past Medical History Allergies/Adverse Reactions: Allergies Allergy/AdvReac Type Severity Reaction Status Date / Time sulfamethoxazole Allergy Severe Hives Verified 04/28/19 12:25 [From Bactrim] trimethoprim [From Bactrim] Allergy Severe Hives Verified 04/28/19 12:25 Home Medications: Ambulatory Orders Haloperidol Decanoate [Haldol Decanoate 100] 100 mg IM MONTHLY 09/16/14 Benztropine Mesylate [Cogentin -] 1 mg PO BID #60 tablet 08/26/16 Albuterol Sulfate Inhaler - [Ventolin HFA Inhaler -] 1 - 2 inh PO Q4H #1 inhaler 09/03/16 Elviteg/Cob/Emtri/Tenof Alafen [Genvoya (Non-Formulary)] 1 each PO DAILY #30 tablet 03/07/17 Risperidone [Risperdal] 1 mg PO BID 04/12/19 Hydrocortisone 1% Cream [Hytone 1% Cream -] 1 applic TP BID #1 tube 04/15/19 Docusate Sodium [Colace -] 100 mg PO TID PRN #90 capsule 04/27/19 Fluticasone Prop 0.05% Nasal [Flonase -] 1 - 2 spray NS DAILY #1 spray.pump Loratadine [Claritin -] 10 mg PO DAILY PRN #30 tablet 04/27/19 Sodium Chloride [Saline Nasal [place]] 1 - 2 sprays NS PRN #1 spray 04/27/19 Anemia: No Asthma: Yes Cancer: Yes (cervical CA 1996. remission) Cardiac Disorders: No CVA: No COPD: No CHF: No Dementia: No Diabetes: No GI Disorders: Yes (GERD) Disorders: No HTN: Yes (Pt is on meds.) Hypercholesterolemia: No Kidney Stones: No Liver Disease: No Seizures: Yes (05/2017) Thyroid Disease: No - Surgical History Abdominal Surgery: No Appendectomy: No Cardiac Surgery: No Cholecystectomy: No Lung Surgery: No Neurologic Surgery: No Orthopedic Surgery: No - Reproductive History PID: No - Immunization History Immunization Up to Date: Yes - Psycho Social/Smoking Cessation Hx Smoking History: Unknown if ever smoked Have you smoked in the past 12 months: Yes Number of Cigarettes Smoked Daily: 10 'Breaking Loose' booklet given: 03/09/19 Hx Alcohol Use: No Drug/Substance Use Hx: No Substance Use Type: Alcohol, Cocaine, Heroin Hx Substance Use Treatment: Yes (detox, rehab, outpatient methadone detox; ) *Physical Exam - Vital Signs Last Vital Signs Temp Pulse Resp BP Pulse Ox 97.8 F 90 16 136/88 100 04/28/19 12:21 04/28/19 12:21 04/28/19 12:21 04/28/19 12:21 04/28/19 12:21 ED Treatment Course - LABORATORY CBC & Chemistry Diagram: 04/28/19 13:58 04/28/19 14:05 Medical Decision Making - Medical Decision Making 04/28/19 15:12 53 y/o F with hx of HIV (last CD4 374, viral load 12 2 days ago), seizures, HTN , cervical ca s/p radiation now in remission, schizoaffective disorder presenting from [facility] for elevated LFTs; also reports RLQ pain and "constipation" also with vague complaints of generalized weakness and muscle wasting. VSS, AF. PE unremarkable -cbc, cmp, lipase, mg, phos, hep panel, abd US, tylenol level, 04/28/19 17:17 US negative elevated LFTs and ALP will admit for further workup patient agreeable mbmd pending 04/28/19 17:[address] Pleitez GI consult order placed Discharge - Discharge Information Problems reviewed: Yes Clinical Impression/Diagnosis: Elevated LFTs Condition: Stable - Admission Yes - Follow up/Referral Referrals: Lainey Ferguson [facility] [Primary Care Provider] - - Patient Discharge Instructions - Post Discharge Activity
[2019-04-28 14:35] LABS: BASO % 2.5 % (0-2.0); EOS % 0.4 % (0-4.5); HEMATOCRIT 35.4 % (32.4-45.2); HEMOGLOBIN 12.1 GM/dL (10.7-15.3); LYMPH % 30.5 % (8-40); MCH 29.1 pg (25.7-33.7); MCHC 34.2 g/dl (32.0-36.0); MEAN CELL VOLUME 85.2 fl (80-96); MEAN PLT VOLUME 7.8 fl (7.5-11.1); MONO % 9.2 % (3.8-10.2); NEUT % 57.4 % (42.8-82.8); PLATELET COUNT 289 K/MM3 (134-434); RBC 4.16 M/mm3 (3.60-5.2); RDW 16.5 % (11.6-15.6); WHITE BLOOD COUNT 3.9 K/mm3 (4.0-10.0)
[2019-04-28] MEDS ORDERED: TETRACAINE 0.5% OPHTH SOLN 2 ML BOTTLE ONE (14:41)
[2019-04-28 14:44] LABS: EPI CELLS 15.6 /HPF (0-5/HPF); HYALINE CASTS 3 /lpf (0-8); URINE APPEARANCE CLOUDY; URINE BACTERIA 318.3 /hpf (NEGATIVE); URINE BILIRUBIN NEGATIVE (NEGATIVE); URINE COLOR YELLOW; URINE GLUCOSE (UA) NEGATIVE (NEGATIVE); URINE KETONE NEGATIVE (NEGATIVE); URINE LEUK ESTERASE TRACE (NEGATIVE); URINE NITRITE NEGATIVE (NEGATIVE); URINE PROTEIN NEGATIVE (NEGATIVE); URINE UROBILINOGEN 0.2 mg/dL (0.2-1.0); URINE WBC 6 /hpf (0-5)
[2019-04-28 14:47] LABS: INR 1.03 (0.83-1.09); PROTHROMBIN TIME (PATIENT) 12.1 SEC (9.7-13.0)
[2019-04-28 14:50] LABS: ACTIVATED PTT 31.9 SECONDS (25.2-36.5)
--- NOTE | 2019-04-28 14:55 | PDOC ---
Documentation entered by Jania Mei SCRIBE, acting as scribe for Jim Rose MD. Jim Rose MD: This documentation has been prepared by the Hamida osman Sammi, SCRIBE, under my direction and personally reviewed by me in its entirety. I confirm that the documentation accurately reflects all work, treatment, procedures, and medical decision making performed by me. Attending Attestation - Resident Resident Name: BladeDaryashlyn - ED Attending Attestation I have performed the following: I have examined & evaluated the patient, The case was reviewed & discussed with the resident, I agree w/resident's findings & plan, Exceptions are as noted - HPI HPI: 04/28/19 14:45 The patient is a 53 year old female, with PMH HIV, seizures, HTN, cervical ca, schizoaffective disorder, who presents for elevated LFTs. Patient endorses 3 days of intermittent RLQ pain and generalized weakness. - Physicial Exam PE: 04/28/19 14:52 Patient is awake and alert, well-nourished, in no significant Distress. 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 No JVD CTA RRR + Mild to moderate right upper quadrant right lower quadrant tenderness to palpation, no guarding or rebound. No lower extremity edema - Medical Decision Making 04/28/19 14:54 Patient is a 53-year-old female with history of HIV AIDS, on Berrios, who presents with right-sided abdominal pain and elevated LFTs. Will perform a hepatitis panel. Will obtain acetaminophen level. Likely admission.
[2019-04-28 15:20] LABS: ALBUMIN 3.6 g/dl (3.4-5.0); BILIRUBIN,TOTAL 0.9 mg/dL (0.2-1); BLOOD UREA NITROGEN 7.4 mg/dL (7-18); CALCIUM 9.6 mg/dL (8.5-10.1); CREATININE 0.7 mg/dL (0.55-1.3); MAGNESIUM 2.2 mg/dL (1.8-2.4); TOT PROT 8.7 g/dl (6.4-8.2)
[2019-04-28 15:27] LABS: URINE RBC 5.5 /hpf (0-4)
--- NOTE | 2019-04-28 17:19 | PDOC ---
*Physical Exam - Vital Signs Last Vital Signs Temp Pulse Resp BP Pulse Ox 98.0 F 76 18 125/85 100 04/28/19 12:25 04/28/19 12:25 04/28/19 12:25 04/28/19 12:25 04/28/19 13:09 - Physical Exam 04/28/19 17:18 please disregard note regarding bells palsy. it is entered in error. ED Treatment Course - LABORATORY CBC & Chemistry Diagram: 04/30/19 13:44 04/30/19 07:37 - ADDITIONAL ORDERS Additional order review: Laboratory Results 04/28/19 04/28/19 04/28/19 14:42 14:05 14:05 PT with INR INR PTT (Actin FS) Sodium 138 Potassium 4.0 Chloride 102 Carbon Dioxide 31 Anion Gap 6 L BUN 7.4 Creatinine 0.7 Est GFR (CKD-EPI)AfAm 116.27 Est GFR (CKD-EPI)NonAf 100.32 Random Glucose 75 Calcium 9.6 Phosphorus 4.0 Magnesium 2.2 Total Bilirubin 0.9 AST > 1000 H ALT > 1000 H Alkaline Phosphatase 325 H Ammonia Total Protein 8.7 H Albumin 3.6 Lipase 50 L Urine Color Yellow Urine Appearance Cloudy Urine pH 7.0 Ur Specific [place] 1.004 L Urine Protein Negative Urine Glucose (UA) Negative Urine Ketones Negative Urine Blood Negative Urine Nitrite Negative Urine Bilirubin Negative Urine Urobilinogen 0.2 Ur Leukocyte Esterase Trace Urine WBC (Auto) 6 Urine RBC (Auto) 5.5 Urine Casts (Auto) 3 U Epithel Cells (Auto) 15.6 Urine Bacteria (Auto) 318.3 Acetaminophen <2.0 04/28/19 04/28/19 14:00 14:00 PT with INR 12.10 INR 1.03 PTT (Actin FS) 31.9 Sodium Potassium Chloride Carbon Dioxide Anion Gap BUN Creatinine Est GFR (CKD-EPI)AfAm Est GFR (CKD-EPI)NonAf Random Glucose Calcium Phosphorus Magnesium Total Bilirubin AST ALT Alkaline Phosphatase Ammonia 23.60 Total Protein Albumin Lipase Urine Color Urine Appearance Urine pH Ur Specific [place] Urine Protein Urine Glucose (UA) Urine Ketones Urine Blood Urine Nitrite Urine Bilirubin Urine Urobilinogen Ur Leukocyte Esterase Urine WBC (Auto) Urine RBC (Auto) Urine Casts (Auto) U Epithel Cells (Auto) Urine Bacteria (Auto) Acetaminophen 04/28/19 13:58 RBC 4.16 MCV 85.2 MCHC 34.2 RDW 16.5 H MPV 7.8 Neutrophils % 57.4 D Lymphocytes % 30.5 D Monocytes % 9.2 Eosinophils % 0.4 Basophils % 2.5 H Discharge - Discharge Information Problems reviewed: Yes Clinical Impression/Diagnosis: Elevated LFTs Condition: Fair Disposition: OTHER HEALTHCARE NOT DEFINED - Follow up/Referral - Patient Discharge Instructions - Post Discharge Activity
[2019-04-28] MEDS ORDERED: ALBUTEROL SO4 HFA INHALER IH PRN (18:30)
--- NOTE | 2019-04-28 18:36 | HP ---
Admitting History and Physical - Admission History of Present Illness: 04/28/19 13:16 HPI: 53 y/o F with hx of HIV (last CD4 374, viral load 12 2 days ago), seizures, HTN , cervical ca s/p radiation now in remission, schizoaffective disorder presenting from [facility] for elevated LFTs. Patient states her levels were taken last week and they were in the 100s and were repeated 2 days ago and are now in the 1000s. She also reports RLQ pain x3 days that is sharp and intermittent without radiation and improved with BM; she reports feeling constipated and gassy and attributed her pain to that. She also reports dark urine for a few days. She denies fever, chills, chest pain, SOB, leg swelling, n /v, diarrea, dysuria, hematuria. She does reports generalized weakness for the past month and feels like her leg muslces have been wasting; denies focal weakness History Source: Patient Limitations to Obtaining History: No Limitations - Past Medical History Cardiovascular: Yes: HTN ...LMP: 08/19/16 Psych: Yes: Other (schizoaffective disorder,) - Past Surgical History Past Surgical History: Yes: Colonoscopy, , Upper Endoscopy - Smoking History Smoking history: Unknown if ever smoked Have you smoked in the past 12 months: Yes Aproximately how many cigarettes per day: 10 - Alcohol/Substance Use Hx Alcohol Use: No Home Medications - Allergies Allergies/Adverse Reactions: Allergies Allergy/AdvReac Type Severity Reaction Status Date / Time sulfamethoxazole Allergy Severe Hives Verified 04/28/19 12:25 [From Bactrim] trimethoprim [From Bactrim] Allergy Severe Hives Verified 04/28/19 12:25 - Home Medications Home Medications: Ambulatory Orders Haloperidol Decanoate [Haldol Decanoate 100] 100 mg IM MONTHLY 09/16/14 Benztropine Mesylate [Cogentin -] 1 mg PO BID #60 tablet 08/26/16 Albuterol Sulfate Inhaler - [Ventolin HFA Inhaler -] 1 - 2 inh PO Q4H #1 inhaler 09/03/16 Elviteg/Cob/Emtri/Tenof Alafen [Genvoya (Non-Formulary)] 1 each PO DAILY #30 tablet 03/07/17 Risperidone [Risperdal] 1 mg PO BID 04/12/19 Hydrocortisone 1% Cream [Hytone 1% Cream -] 1 applic TP BID #1 tube 04/15/19 Docusate Sodium [Colace -] 100 mg PO TID PRN #90 capsule 04/27/19 Fluticasone Prop 0.05% Nasal [Flonase -] 1 - 2 spray NS DAILY #1 spray.pump Loratadine [Claritin -] 10 mg PO DAILY PRN #30 tablet 04/27/19 Sodium Chloride [Saline Nasal [place]] 1 - 2 sprays NS PRN #1 spray 04/27/19 Review of Systems - Review of Systems Constitutional: reports: No Symptoms Gastrointestinal: reports: Bloating, Constipation Psychiatric: reports: Other (schizoaffective disorder,) Physical Examination Vital Signs: Vital Signs Temperature 98.0 F 04/28/19 12:25 Pulse Rate 76 04/28/19 12:25 Respiratory Rate 18 04/28/19 12:25 Blood Pressure 125/85 04/28/19 12:25 O2 Sat by Pulse Oximetry (%) 100 04/28/19 13:09 Constitutional: Yes: Well Nourished Eyes: Yes: WNL, Conjunctiva Clear, EOM Intact HENT: Yes: Atraumatic, Normocephalic Neck: Yes: Supple, Trachea Midline Cardiovascular: Yes: Regular Rate and Rhythm Respiratory: Yes: Regular, CTA Bilaterally Gastrointestinal: Yes: Normal Bowel Sounds, Soft Edema: No Peripheral Pulses WNL: Yes Neurological: Yes: WNL, Alert, Oriented ...Motor Strength: WNL Psychiatric: Yes: WNL Labs: CBC, BMP 04/28/19 13:58 04/28/19 14:05 Imaging - Results Ultrasound: Report Reviewed (abd sono unremarkable,) Problem List - Problems (1) Elevated LFTs Code(s): R94.5 - ABNORMAL RESULTS OF LIVER FUNCTION STUDIES (2) HIV (human immunodeficiency virus infection) Code(s): Z21 - ASYMPTOMATIC HUMAN IMMUNODEFICIENCY VIRUS INFECTION STATUS Qualifiers: HIV symptom status: unspecified Qualified Code(s): B20 - Human immunodeficiency virus [HIV] disease Assessment/Plan 53 y/o F with hx of HIV (last CD4 374, viral load 12 2 days ago), seizures, HTN , cervical ca s/p radiation now in remission, schizoaffective disorder presenting from [facility] for elevated LFTs. a/p 1) elevated LFTS usg negative, hepatitis panel pending, acetminophen level normal, no recent travel recently was admitted to [facility] and psych meds were changed, will hold for now, will see the GI for further gonzales, also will check the repeat labs, and fu, 2), HIV will recheck the LFTS tomorrow, and resume the meds accordingly viral load, 1.03, on 04/12/19, will recheck, 3) schizoaffective disorder, hold meds for today, psych consult with dr wilkinson, 4) dvt prophylaxis, early ambulation, and SCDs, High LFTS , will avoid the meds, Visit type - Emergency Visit Emergency Visit: Yes ED Registration Date: 04/28/19 Care time: The patient presented to the Emergency Department on the above date and was hospitalized for further evaluation of their emergent condition. - New Patient This patient is new to me today: Yes Date on this admission: 04/28/19 - Critical Care Critical Care patient: No
[2019-04-29 09:40] LABS: HEMATOCRIT 35.5 % (32.4-45.2); HEMOGLOBIN 11.9 GM/dL (10.7-15.3); MCH 28.5 pg (25.7-33.7); MCHC 33.6 g/dl (32.0-36.0); MEAN CELL VOLUME 84.9 fl (80-96); MEAN PLT VOLUME 7.8 fl (7.5-11.1); PLATELET COUNT 295 K/MM3 (134-434); RBC 4.18 M/mm3 (3.60-5.2); RDW 17.1 % (11.6-15.6); WHITE BLOOD COUNT 2.6 K/mm3 (4.0-10.0)
[2019-04-29 10:09] LABS: INR 1.07 (0.83-1.09); PROTHROMBIN TIME (PATIENT) 12.6 SEC (9.7-13.0)
[2019-04-29 10:17] LABS: BLOOD UREA NITROGEN 12.4 mg/dL (7-18); POTASSIUM 3.8 mmol/L (3.5-5.1); TOT PROT 7.5 g/dl (6.4-8.2)
--- NOTE | 2019-04-29 10:45 | CON.PSY ---
Psychiatry Consult Chief Complaint: 53 Veronica old female with ? Schizophrenia on Haldol [id number] im monthly and Risperidone 1mgf po bid admitted last night with elevatuion of Liver Function Tests. Patient has been sleeping since admission. - Previous Psychiatric Treatment Outpatient: Less than 6 mos ago Inpatient: One prior admission, 2 or more prior admissions - Previous Substance Abuse Treatment Outpatient: None Inpatient: None - Reason for Previous Treatment Reason for Previous Treatment: Psychotic Episode - Current Medications Current Medications: Active Medications Albuterol Sulfate (Ventolin Hfa Inhaler -) 1 - 2 puff IH Q4H PRN PRN Reason: SHORTNESS OF BREATH - Allergies Allergies: Allergies Allergy/AdvReac Type Severity Reaction Status Date / Time sulfamethoxazole Allergy Severe Hives Verified 04/28/19 12:25 [From Bactrim] trimethoprim [From Bactrim] Allergy Severe Hives Verified 04/28/19 12:25 - Current Living Status Usual Living Arrangement: Alone - Current Mental Status Evaluation Appearance: Disheveled Attitude: Guarded - Affect Affect: Constrictive Appropriateness: Appropriate to Content - Mood Mood: Euthymic - Speech/Language Expressive: Coherent - Psychomotor Activity Psychomotor Activity: Slowed - Thought Process Thought Process: Circumstantial - Thought Content Hallucinations: Absent Delusions: Absent - Self Perception Self Perception: No Impairment - Cognition Attention: Diminished Orientation: Time Memory, Short Term: 2/3 Memory, Remote with Promptin/3 - Concentration Serial Sevens Intact: No Simple Calculations Intact: No - Abstraction Proverb Interpretation: [place] Judgement: Intact - Insight Insight: Impaired - Impulse Control Impulse Control: Minimally Impaired - Suicidal Ideation Suicidal Ideation: No - Homicidal Ideation Homicidal Ideation: No Assessment/Plan 12) Hold all Psych Meds at this time. FInd out when she was given last Haldol Decanoate injection.
[2019-04-29] MEDS: SODIUM CHLORIDE 1,000 ML IV SCH (12:03)
--- NOTE | 2019-04-29 14:12 | PN ---
Physical Exam: SUBJECTIVE: Patient seen and examined at the bedside. awake and alert. States she is on monthly haldol IM for the ACT team at [facility]. OBJECTIVE: Patient is a 53 year old female with a significant past medical history of HIV infection since 1990, hypertension, seizure disorder, GERD and a history of cervical cancer (in remission since 1995), schizoaffective disorder. She presents from the [facility] to [facility] for elevated liver enzymes. Per admission records, patient lft levels were taken last week and they were in the 100s and were repeated 2 days ago and are now in the 1000s. She also reports RLQ pain x3 days that is sharp and intermittent without radiation and improved with BM. Her LFTs were normal on labs done here on 03/02/2019, since then from 04/12/2019 her ALT increased from 138-1340, Her AST increased from 114 - 1324. She was started on treatment with metronidazole 500mg BID x 7 days for trichomonas vaginalis infection on 04/12/2019. imaging abdominal ultrasound : no liver abnormality seen. Vital Signs Period Temp Pulse Resp BP Sys/Jc Pulse Ox Last 24 Hr 98.0 F-100.2 F 64-76 16-18 101-125/54-85 98-98 GENERAL: The patient is awake, alert, and fully oriented, in no acute distress. HEAD: Normal with no signs of trauma. EYES: PERRL, extraocular movements intact, sclera anicteric, conjunctiva clear. No ptosis. ENT: Ears normal, nares patent, oropharynx clear without exudates NECK: Trachea midline, full range of motion, supple. LUNGS: Breath sounds equal, clear to auscultation bilaterally, no wheezes HEART: Regular rate and rhythm ABDOMEN: Soft, nontender, nondistended, normoactive bowel sounds EXTREMITIES: no edema. NEUROLOGICAL: Normal speech, gait not observed. PSYCH: Normal mood, normal affect. SKIN: Warm, dry, normal turgor, no rashes or lesions noted Laboratory Results - last 24 hr 04/28/19 04/28/19 04/28/19 13:58 14:00 14:00 WBC 3.9 L RBC 4.16 Hgb 12.1 Hct 35.4 MCV 85.2 MCH 29.1 MCHC 34.2 RDW 16.5 H Plt Count 289 MPV 7.8 Absolute Neuts (auto) 2.2 Neutrophils % 57.4 D Lymphocytes % 30.5 D Monocytes % 9.2 Eosinophils % 0.4 Basophils % 2.5 H Nucleated RBC % 0 PT with INR 12.10 INR 1.03 PTT (Actin FS) 31.9 Sodium Potassium Chloride Carbon Dioxide Anion Gap BUN Creatinine Est GFR (CKD-EPI)AfAm Est GFR (CKD-EPI)NonAf Random Glucose Calcium Phosphorus Magnesium Total Bilirubin AST ALT Alkaline Phosphatase Ammonia 23.60 Creatine Kinase Total Protein Albumin Total Amylase Lipase Urine Color Urine Appearance Urine pH Ur Specific [place] Urine Protein Urine Glucose (UA) Urine Ketones Urine Blood Urine Nitrite Urine Bilirubin Urine Urobilinogen Ur Leukocyte Esterase Urine WBC (Auto) Urine RBC (Auto) Urine Casts (Auto) U Epithel Cells (Auto) Urine Bacteria (Auto) Acetaminophen Hep C Ab Diagnostic 04/28/19 04/28/19 04/28/19 14:05 14:05 14:05 WBC RBC Hgb Hct MCV MCH MCHC RDW Plt Count MPV Absolute Neuts (auto) Neutrophils % Lymphocytes % Monocytes % Eosinophils % Basophils % Nucleated RBC % PT with INR INR PTT (Actin FS) Sodium 138 Potassium 4.0 Chloride 102 Carbon Dioxide 31 Anion Gap 6 L BUN 7.4 Creatinine 0.7 Est GFR (CKD-EPI)AfAm 116.27 Est GFR (CKD-EPI)NonAf 100.32 Random Glucose 75 Calcium 9.6 Phosphorus 4.0 Magnesium 2.2 Total Bilirubin 0.9 AST 1020 H ALT 1164 H Alkaline Phosphatase 325 H Ammonia Creatine Kinase Total Protein 8.7 H Albumin 3.6 Total Amylase Lipase 50 L Urine Color Yellow Urine Appearance Cloudy Urine pH 7.0 Ur Specific [place] 1.004 L Urine Protein Negative Urine Glucose (UA) Negative Urine Ketones Negative Urine Blood Negative Urine Nitrite Negative Urine Bilirubin Negative Urine Urobilinogen 0.2 Ur Leukocyte Esterase Trace Urine WBC (Auto) 6 Urine RBC (Auto) 5.5 Urine Casts (Auto) 3 U Epithel Cells (Auto) 15.6 Urine Bacteria (Auto) 318.3 Acetaminophen Hep C Ab Diagnostic 0.2 04/28/19 04/29/19 04/29/19 14:42 09:04 09:04 WBC 2.6 L RBC 4.18 Hgb 11.9 Hct 35.5 MCV 84.9 MCH 28.5 MCHC 33.6 RDW 17.1 H Plt Count 295 MPV 7.8 Absolute Neuts (auto) Neutrophils % Lymphocytes % Monocytes % Eosinophils % Basophils % Nucleated RBC % PT with INR 12.60 INR 1.07 PTT (Actin FS) Sodium Potassium Chloride Carbon Dioxide Anion Gap BUN Creatinine Est GFR (CKD-EPI)AfAm Est GFR (CKD-EPI)NonAf Random Glucose Calcium Phosphorus Magnesium Total Bilirubin AST ALT Alkaline Phosphatase Ammonia Creatine Kinase Total Protein Albumin Total Amylase Lipase Urine Color Urine Appearance Urine pH Ur Specific [place] Urine Protein Urine Glucose (UA) Urine Ketones Urine Blood Urine Nitrite Urine Bilirubin Urine Urobilinogen Ur Leukocyte Esterase Urine WBC (Auto) Urine RBC (Auto) Urine Casts (Auto) U Epithel Cells (Auto) Urine Bacteria (Auto) Acetaminophen <2.0 Hep C Ab Diagnostic 04/29/19 09:04 WBC RBC Hgb Hct MCV MCH MCHC RDW Plt Count MPV Absolute Neuts (auto) Neutrophils % Lymphocytes % Monocytes % Eosinophils % Basophils % Nucleated RBC % PT with INR INR PTT (Actin FS) Sodium 138 Potassium 3.8 Chloride 105 Carbon Dioxide 29 Anion Gap 5 L BUN 12.4 Creatinine 1.0 Est GFR (CKD-EPI)AfAm 75.54 Est GFR (CKD-EPI)NonAf 65.18 Random Glucose 89 Calcium 9.0 Phosphorus Magnesium Total Bilirubin 1.0 AST 1324 H ALT 1340 H Alkaline Phosphatase 287 H Ammonia Creatine Kinase 83 Total Protein 7.5 Albumin 3.0 L Total Amylase 64 Lipase 54 L Urine Color Urine Appearance Urine pH Ur Specific [place] Urine Protein Urine Glucose (UA) Urine Ketones Urine Blood Urine Nitrite Urine Bilirubin Urine Urobilinogen Ur Leukocyte Esterase Urine WBC (Auto) Urine RBC (Auto) Urine Casts (Auto) U Epithel Cells (Auto) Urine Bacteria (Auto) Acetaminophen Hep C Ab Diagnostic Active Medications Generic Name Dose Route Start Last Admin Trade Name Freq PRN Reason Stop Dose Admin Albuterol Sulfate 1 - 2 puff 04/28/19 18:30 Ventolin Hfa Inhaler - IH Q4H PRN SHORTNESS OF BREATH Sodium Chloride 1,000 mls @ 75 mls/hr 04/29/19 11:30 04/29/19 12:03 Normal Saline - IV 75 mls/hr ASDIR [facility] Administration ASSESSMENT/PLAN: Problem List - Problems (1) Elevated LFTs Assessment/Plan: elevated lfts began to trend up on 04/12/2019. possibly due to medication adverse effect? was prescribed metronidazole for vaginal infection. But also reported to have her psych medications adjusted also. ultrasound negative for any acute pathology and hepatitis panel pending normal acetaminophen levels rivas send for drug screen GI for further workup start on ivf repeat levels daily and monitor Code(s): R94.5 - ABNORMAL RESULTS OF LIVER FUNCTION STUDIES (2) Hepatocellular injury Assessment/Plan: hold off on any medications that can worsen liver toxicity Code(s): K76.9 - LIVER DISEASE, UNSPECIFIED (3) HIV (human immunodeficiency virus infection) Assessment/Plan: being followed by Dr. Colby. Antivirals being held Code(s): Z21 - ASYMPTOMATIC HUMAN IMMUNODEFICIENCY VIRUS INFECTION STATUS Qualifiers: HIV symptom status: unspecified Qualified Code(s): B20 - Human immunodeficiency virus [HIV] disease (4) Trichomonas vaginalis infection Assessment/Plan: treated with flagyl, but unsure if patient completed medication Code(s): A59.9 - TRICHOMONIASIS, UNSPECIFIED (5) History of HIV infection Assessment/Plan: see above Code(s): B20 - HUMAN IMMUNODEFICIENCY VIRUS [HIV] DISEASE (6) Seizures Assessment/Plan: no seizures in many years. was on vimpat in 2017, has not been on any anti seizure medications from review of past visits at [facility]. Code(s): R56.9 - UNSPECIFIED CONVULSIONS (7) D[place] prophylaxis [place] [facility] [place]): Z29.9 - ENCOUNTER FOR PROPHYLACTIC MEASURES, UNSPECIFIED Visit type - Emergency Visit Emergency Visit: Yes ED Registration Date: 04/28/19 Care time: The patient presented to the Emergency Department on the above date and was hospitalized for further evaluation of their emergent condition. - New Patient This patient is new to me today: Yes Date on this admission: 04/29/19 - Critical Care Critical Care patient: No - Discharge Referral Referred to [facility] Med P.C.: No
--- NOTE | 2019-04-29 14:34 | PN ---
Progress Note (short form) - Note Progress Note: ID consult dictated imp/reccd ABNL LFTs-mainly hepatocellular 53 yo female HIV +on genvoya for years, hep A immune and hep B sAb positive from clinic with elevated LFTS, chronic leukopenia of 2.5 for last several years drank beer last week smokes cocaine on meds from psychiatry denies IVDA no travel sonogram unrevealing would hold her genvoya psych meds on hold as well per psychiatrist rest of w/u per GI consider urine tox follow lfts, inr hep c viral load from 04/27/19 negative cd4 314, vl is 20 from 04/12/19 ?meds, ?cocaine-ischemic send cmv and ebv serology autoimmune less likely Problem List - Problems (1) Elevated LFTs Code(s): R94.5 - ABNORMAL RESULTS OF LIVER FUNCTION STUDIES (2) HIV (human immunodeficiency virus infection) Code(s): Z21 - ASYMPTOMATIC HUMAN IMMUNODEFICIENCY VIRUS INFECTION STATUS Qualifiers: HIV symptom status: unspecified Qualified Code(s): B20 - Human immunodeficiency virus [HIV] disease
--- NOTE | 2019-04-29 15:11 | EKG ---
Test Reason : Blood Pressure : / mmHG Vent. Rate : 074 BPM Atrial Rate : 074 BPM P-R Int : 154 ms QRS Dur : 090 ms QT Int : 422 ms P-R-T Axes : 073 081 064 degrees QTc Int : 468 ms NORMAL SINUS RHYTHM POSSIBLE LEFT ATRIAL ENLARGEMENT PROLONGED QT ABNORMAL ECG WHEN COMPARED WITH ECG OF 15-JAN-2019 22:15, NO SIGNIFICANT CHANGE WAS FOUND Confirmed by JAELYN UPTON, AKUA ([id number]) on 04/29/2019 3:11:44 PM Referred By: Confirmed By:AKUA CHRISTY MD
--- NOTE | 2019-04-29 16:17 | CONS ---
INFECTIOUS DISEASE CONSULTATION DATE OF CONSULTATION: DATE OF DICTATION: 04/29/2019 REQUESTED BY: The hospitalist service. HISTORY OF PRESENT ILLNESS: This is a 53-year-old woman with HIV. She used to be in the care of our clinic in 2016, then her care was transferred to another physician, and she returned this fall to our care. She has a long-standing history of being on Genvoya. She has a history as well of substance use and psychiatric illness. She had returned to clinic recently, when her T cells and viral load in clinic early April were 314 with a viral load of 20. She was noted at that time to have LFTs in the 100s, AST of 114, ALT of 138. She was advised to follow up. She returned on the , when her AST was 910, ALT of 1020, and alkaline phosphatase of 308. She was contacted and advised ER evaluation. She came yesterday, on the , to the ER. She is awake and alert. Of note, she reports that she was recently hospitalized for psychiatric admission and apparently recently saw an outpatient psychiatrist. She denies any herbal medicines. She was at [facility] from before [place] until April 11. She reports that she rarely takes Tylenol. She does drink beer. Her last Heineken was last week and she smokes cocaine. She had a recent trichomonas infection in April and was treated with Flagyl, as well. Per the clinic notes, she recently saw her psychiatrist this week and her medication list has not been clarified. She denies any fevers or chills. She has no sore throat. She has no cough, nausea, vomiting or diarrhea. ALLERGIES: She is allergic to BACTRIM, which gives her hives. PAST MEDICAL HISTORY: Notable for asthma, cervical cancer in 1995, hypertension, GERD, seizure disorder, she has been HIV-positive since 1990, and she had an ectopic in 2005. SURGICAL HISTORY: Notable for a LEEP procedure in 2005, as well as the ectopic , in 2004, and LEEP procedure for cervical cancer in . SOCIAL HISTORY: She is an active cigarette smoker. She is living at . REVIEW OF SYSTEMS: She denies any nausea, vomiting, diarrhea or dysuria. There is no history of any travel. PHYSICAL EXAMINATION: General: She is awake and alert. She is a poor historian. Vital Signs: Her temp is 98.5 oral, T-maximum is 100.2 rectal, pulse is 73, blood pressure 115/69, respiratory rate is 18. HEENT: She is normocephalic. Her eyes are anicteric. Neck: Supple. Lungs: Clear to auscultation. Heart: Regular rate and rhythm. Abdomen: Soft. Nontender. Extremities: Without edema. Neurologic: She has no asterixis. LABORATORIES: Notable for AST of 1324, ALT of 1340, alkaline phosphatase of 287, BUN and creatinine are 12 and 1, her INR is normal at 1, and her white count is 2.6 which appears to be her baseline. Her baseline seems to be around 2.5, dating back to 2017. She had an ultrasound of her abdomen that was unremarkable. In summary, this is a 53-year-old woman with stable HIV; abnormal LFTs, mainly hepatocellular; who does use alcohol and cocaine; is on psychiatric medications which the psychiatrist has seen her and is holding; and HIV medicines which she has been on senior living. Would hold her Genvoya, given the degree of LFT abnormalities. Psychiatric medications have been put on hold, as well. Would consider urine toxicology. Need to follow LFTs and her INR. From the clinic records, she is hepatitis A and hepatitis B immune. She has chronic leukopenia. The hepatitis C viral load from April 27, 2019, is negative. Her T cells are 315 with a viral load of 20, making her unlikely to have viral illness, but will screen her with CMV and EBV serology. Would send a TSH, as well, and would recommend followup with GI. BEVERLY HOPKINS M.D. [id number]
--- NOTE | 2019-04-29 17:26 | CON.GI ---
Consult Consult Specialty:: GI - History of Present Illness History of Present Illness: 53 y/o F with hx of HIV (last CD4 374, viral load 12 2 days ago), seizures, HTN , cervical ca s/p radiation now in remission, schizoaffective disorder presenting from [facility] for elevated LFTs. Patient states her levels were taken last week and they were in the 100s and were repeated 2 days ago and are now in the 1000s She denies abdominal pain, fever, nausea and vomiting.She use cocaine. Denies Heroine use. - Past Medical History Cardio/Vascular: Yes: HTN ...LMP: 08/19/16 Psych: Yes: Other (schizoaffective disorder,) - Past Surgical History Past Surgical History: Yes: Colonoscopy, , Upper Endoscopy - Alcohol/Substance Use Hx Alcohol Use: Yes - Smoking History Smoking history: Current every day smoker Have you smoked in the past 12 months: Yes Aproximately how many cigarettes per day: 10 - Social History Usual Living Arrangement: Alone Home Medications - Allergies Allergies/Adverse Reactions: Allergies Allergy/AdvReac Type Severity Reaction Status Date / Time sulfamethoxazole Allergy Severe Hives Verified 04/28/19 12:25 [From Bactrim] trimethoprim [From Bactrim] Allergy Severe Hives Verified 04/28/19 12:25 - Home Medications Home Medications: Ambulatory Orders Haloperidol Decanoate [Haldol Decanoate 100] 100 mg IM MONTHLY 09/16/14 Benztropine Mesylate [Cogentin -] 1 mg PO BID #60 tablet 08/26/16 Albuterol Sulfate Inhaler - [Ventolin HFA Inhaler -] 1 - 2 inh PO Q4H #1 inhaler 09/03/16 Elviteg/Cob/Emtri/Tenof Alafen [Genvoya (Non-Formulary)] 1 each PO DAILY #30 tablet 03/07/17 Risperidone [Risperdal] 1 mg PO BID 04/12/19 Hydrocortisone 1% Cream [Hytone 1% Cream -] 1 applic TP BID #1 tube 04/15/19 Docusate Sodium [Colace -] 100 mg PO TID PRN #90 capsule 04/27/19 Fluticasone Prop 0.05% Nasal [Flonase -] 1 - 2 spray NS DAILY #1 spray.pump Loratadine [Claritin -] 10 mg PO DAILY PRN #30 tablet 04/27/19 Sodium Chloride [Saline Nasal [place]] 1 - 2 sprays NS PRN #1 spray 04/27/19 Physical Exam-GI Vital Signs: Vital Signs Temperature 98.5 F 04/29/19 14:26 Pulse Rate 73 04/29/19 14:26 Respiratory Rate 18 04/29/19 14:26 Blood Pressure 115/69 04/29/19 14:26 O2 Sat by Pulse Oximetry (%) 98 04/29/19 09:00 Constitutional: Yes: Well Nourished Eyes: Yes: Conjunctiva Clear HENT: Yes: Atraumatic Neck: Yes: Supple Cardiovascular: Yes: Regular Rate and Rhythm Respiratory: Yes: CTA Bilaterally ...Palpate: Yes: Soft. No: Firm/Rigid, Guarding, Hepatomegaly, Mass, Pulsatile Mass, Splenomegaly, Tenderness Labs: CBC, BMP 04/29/19 09:04 04/29/19 09:04 INR, PTT INR 1.07 (0.83-1.09) 04/29/19 09:04 Home Medications Medication Instructions Recorded Haloperidol Decanoate [Haldol 100 mg IM MONTHLY 09/16/14 Decanoate 100] Benztropine Mesylate [Cogentin -] 1 mg PO BID #60 tablet 08/26/16 Albuterol Sulfate Inhaler - 1 - 2 inh PO Q4H #1 inhaler 09/03/16 [Ventolin HFA Inhaler -] Elviteg/Cob/Emtri/Tenof Alafen 1 each PO DAILY #30 tablet 03/07/17 [Genvoya (Non-Formulary)] Risperidone [Risperdal] 1 mg PO BID 04/12/19 Hydrocortisone 1% Cream [Hytone 1% 1 applic TP BID #1 tube 04/15/19 Cream -] Docusate Sodium [Colace -] 100 mg PO TID PRN #90 capsule 04/27/19 Fluticasone Prop 0.05% Nasal 1 - 2 spray NS DAILY #1 spray.pump 04/27/19 [Flonase -] Loratadine [Claritin -] 10 mg PO DAILY PRN #30 tablet 04/27/19 Sodium Chloride [Saline Nasal 1 - 2 sprays NS PRN #1 spray 04/27/19 [place]] Home Medication List Medication Instructions Recorded Confirmed Type Haloperidol Decanoate [Haldol 100 mg IM MONTHLY 09/16/14 04/28/19 History Decanoate 100] Risperidone [Risperdal] 1 mg PO BID 04/12/19 04/28/19 History Active Medications Generic Name Dose Route Start Last Admin Trade Name Freq PRN Reason Stop Dose Admin Albuterol Sulfate 1 - 2 puff 04/28/19 18:30 Ventolin Hfa Inhaler - IH Q4H PRN SHORTNESS OF BREATH Sodium Chloride 1,000 mls @ 75 mls/hr 04/29/19 11:30 04/29/19 12:03 Normal Saline - IV 75 mls/hr ASDIR VIVI Administration Hepatic Panel Total Bilirubin 1.0 mg/dL (0.2-1) 04/29/19 09:04 AST 1324 U/L (15-37) H 04/29/19 09:04 ALT 1340 U/L (13-61) H 04/29/19 09:04 Alkaline Phosphatase 287 U/L (45-117) H 04/29/19 09:04 Albumin 3.0 g/dl (3.4-5.0) L 04/29/19 09:04 Problem List - Problems (1) Hepatocellular injury Assessment/Plan: --Severe 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
[2019-04-29 18:31] LABS: METHADONE, UR NEGATIVE ng/ml (CUTOFF=300); OPIATES, URI NEGATIVE ng/ml (CUTOFF=300); PHENCYCLIDINE,URINE NEGATIVE ng/ml (CUTOFF=25); URINE AMPHETAMINES NEGATIVE ng/ml (CUTOFF=500); URINE BARBITURATES NEGATIVE ng/ml (CUTOFF=200); URINE BENZODIAZEPINES NEGATIVE ng/ml (CUTOFF=200)
[2019-04-29 18:33] LABS: COCAINE, UR POSITIVE ng/ml (CUTOFF=300)
[2019-04-30 08:07] LABS: BASO % 1.3 % (0-2.0); EOS % 1.2 % (0-4.5); HEMATOCRIT 36.7 % (32.4-45.2); HEMOGLOBIN 12.3 GM/dL (10.7-15.3); MCH 28.6 pg (25.7-33.7); MCHC 33.5 g/dl (32.0-36.0); MEAN CELL VOLUME 85.4 fl (80-96); MEAN PLT VOLUME 7.8 fl (7.5-11.1); MONO % 17.7 % (3.8-10.2); NEUT % 24.8 % (42.8-82.8); PLATELET COUNT 298 K/MM3 (134-434); RDW 17.3 % (11.6-15.6); WHITE BLOOD COUNT 2.6 K/mm3 (4.0-10.0)
--- NOTE | 2019-04-30 08:52 | PN ---
Progress Note, Physician History of Present Illness: GI FOLLOW UP NOTE Patient examined and case discussed with Dr Drake Patient denies nausea, vomiting, diarrhea, constipation, abdominal pain, rectal bleeding or melena. Pending this morning labs to monitor her LFTs. - Current Medication List Current Medications: Active Medications Albuterol Sulfate (Ventolin Hfa Inhaler -) 1 - 2 puff IH Q4H PRN PRN Reason: SHORTNESS OF BREATH Sodium Chloride (Normal Saline -) 1,000 mls @ 75 mls/hr IV ASDIR VIVI Last Admin: 04/29/19 12:03 Dose: 75 mls/hr - Objective Vital Signs: Vital Signs Temperature 98 F 04/30/19 05:42 Pulse Rate 75 04/30/19 05:42 Respiratory Rate 18 04/30/19 05:42 Blood Pressure 129/79 04/30/19 05:42 O2 Sat by Pulse Oximetry (%) 97 04/29/19 21:00 Constitutional: Yes: No Distress, Calm Eyes: Yes: Conjunctiva Clear HENT: Yes: Atraumatic Cardiovascular: Yes: Regular Rate and Rhythm Respiratory: Yes: Regular, CTA Bilaterally Gastrointestinal: Yes: Normal Bowel Sounds, Soft Neurological: Yes: Alert, Oriented Psychiatric: Yes: Alert, Oriented Labs: CBC, BMP 04/30/19 07:37 INR, PTT INR 1.07 (0.83-1.09) 04/29/19 09:04 Problem List - Problems (1) Hepatocellular injury Assessment/Plan: -monitor LFTs daily -pending Hepatitis profile -Abd US shows no sonogrphic abnormality -JOCELYN, anti smooth muscle pending Code(s): K76.9 - LIVER DISEASE, UNSPECIFIED
[2019-04-30 08:55] LABS: ALBUMIN 3.1 g/dl (3.4-5.0); BILIRUBIN,TOTAL 1.3 mg/dL (0.2-1); BLOOD UREA NITROGEN 9.9 mg/dL (7-18); CALCIUM 9.1 mg/dL (8.5-10.1); CREATININE 0.8 mg/dL (0.55-1.3); MAGNESIUM 2.1 mg/dL (1.8-2.4); POTASSIUM 4.1 mmol/L (3.5-5.1); TOT PROT 7.6 g/dl (6.4-8.2)
[2019-04-30 10:07] LABS: HEP B CORE AB, TOT Positive (Negative)
[2019-04-30 11:35] LABS: ANISOCYTOSIS 1+; MACROCYTOSIS 0; PLATELET ESTIMATE NORMAL; TARGET CELLS 1+; TEAR DROP CELLS 1+
--- NOTE | 2019-04-30 11:36 | PN ---
Progress Note (short form) - Note Progress Note: feels well alert reports getting thorazine prn, cogentin and haldol as an inpt at [facility] her psychiatrist stopped the thorazine she reports continuing on her genvoya Vital Signs Period Temp Pulse Resp BP Sys/Jc Pulse Ox Last 24 Hr 98 F-98.5 F 73-75 18-18 115-129/69-79 97 cor-rrr lungs clear abd soft,nt ext no edema no asterixis CBC, BMP 04/30/19 07:37 04/30/19 07:37 Laboratory Tests 04/28/19 04/29/19 04/30/19 14:05 09:04 07:37 Total Bilirubin 0.9 1.0 1.3 H AST 1450 H ALT 1453 H Alkaline Phosphatase 317 H a/p ABNL LFTs-mainly hepatocellular-?meds, ?ischemic +cocaine 53 yo female HIV +on genvoya for years, hep A immune and hep B sAb positive from clinic with elevated LFTS, chronic leukopenia of 2.5 for last several years drank beer last week smokes cocaine on meds from psychiatry sonogram unrevealing would hold her genvoya psych meds on hold as well per psychiatrist rest of w/u per GI repeat Hep b serology results are inconsistent - she is both antibody positive and now newly antigen posiitve would get hep B viral load, repeat acute hep b panel have sent yang,asma,cmv, ebv send ama too follow lfts, inr ?liver biopsy need GI input on biopsy and hep B panel-d/w Dr Drake - he will d/w chronometer tester at [facility] hep c viral load from 04/27/19 negative cd4 314, vl is 20 from 04/12/19 d/w hospitalist
--- NOTE | 2019-04-30 12:32 | PN ---
Physical Exam: SUBJECTIVE: Patient seen and examined OBJECTIVE: Vital Signs Period Temp Pulse Resp BP Sys/Jc Pulse Ox Last 24 Hr 98 F-98.5 F 73-75 18-18 115-129/69-79 97 GENERAL: The patient is awake, alert, and fully oriented, in no acute distress. HEAD: Normal with no signs of trauma. EYES: PERRL, extraocular movements intact, sclera anicteric, conjunctiva clear. No ptosis. ENT: Ears normal, nares patent, oropharynx clear without exudates, moist mucous membranes. NECK: Trachea midline, full range of motion, supple. LUNGS: Breath sounds equal, clear to auscultation bilaterally, no wheezes, no crackles, no accessory muscle use. HEART: Regular rate and rhythm, S1, S2 without murmur, rub or gallop. ABDOMEN: Soft, nontender, nondistended, normoactive bowel sounds, no guarding, no rebound, no hepatosplenomegaly, no masses. EXTREMITIES: 2+ pulses, warm, well-perfused, no edema. NEUROLOGICAL: Cranial nerves II through XII grossly intact. Normal speech, gait not observed. PSYCH: Normal mood, normal affect. SKIN: Warm, dry, normal turgor, no rashes or lesions noted Laboratory Results - last 24 hr 04/28/19 04/29/19 04/29/19 14:05 09:04 17:30 WBC RBC Hgb Hct MCV MCH MCHC RDW Plt Count MPV Absolute Neuts (auto) Neutrophils % Lymphocytes % Monocytes % Eosinophils % Basophils % Nucleated RBC % Sodium 138 Potassium 3.8 Chloride 105 Carbon Dioxide 29 Anion Gap 5 L BUN 12.4 Creatinine 1.0 Est GFR (CKD-EPI)AfAm 75.54 Est GFR (CKD-EPI)NonAf 65.18 Random Glucose 89 Calcium 9.0 Magnesium Total Bilirubin 1.0 AST 1324 H ALT 1340 H Alkaline Phosphatase 287 H Creatine Kinase 83 Total Protein 7.5 Albumin 3.0 L Total Amylase 64 Lipase 54 L TSH Opiates Screen Negative Methadone Screen Negative Barbiturate Screen Negative Phencyclidine Screen Negative Ur Amphetamines Screen Negative MDMA (Ecstasy) Screen Negative Benzodiazepines Screen Negative Cocaine Screen Positive A* U Marijuana (THC) Screen Negative Hep A IgM Ab Confirm Negative Hepatitis A Ab Total Positive H Hep Bs Antigen Positive H Hep Bs Antibody Reactive Hep B Core Total Ab Positive H Hep B Core IgM Ab Positive H Hepatitis Be Antibody Negative Hepatitis Be Antigen Positive H 04/30/19 04/30/19 07:37 07:37 WBC 2.6 L RBC 4.30 Hgb 12.3 Hct 36.7 MCV 85.4 MCH 28.6 MCHC 33.5 RDW 17.3 H Plt Count 298 MPV 7.8 Absolute Neuts (auto) 0.6 L Neutrophils % 24.8 L D Lymphocytes % 55.0 H D Monocytes % 17.7 H D Eosinophils % 1.2 D Basophils % 1.3 Nucleated RBC % 0 Sodium 139 Potassium 4.1 Chloride 107 Carbon Dioxide 26 Anion Gap 6 L BUN 9.9 Creatinine 0.8 Est GFR (CKD-EPI)AfAm 98.93 Est GFR (CKD-EPI)NonAf 85.36 Random Glucose 75 Calcium 9.1 Magnesium 2.1 Total Bilirubin 1.3 H AST 1450 H ALT 1453 H Alkaline Phosphatase 317 H Creatine Kinase Total Protein 7.6 Albumin 3.1 L Total Amylase Lipase TSH 0.63 Opiates Screen Methadone Screen Barbiturate Screen Phencyclidine Screen Ur Amphetamines Screen MDMA (Ecstasy) Screen Benzodiazepines Screen Cocaine Screen U Marijuana (THC) Screen Hep A IgM Ab Confirm Hepatitis A Ab Total Hep Bs Antigen Hep Bs Antibody Hep B Core Total Ab Hep B Core IgM Ab Hepatitis Be Antibody Hepatitis Be Antigen Active Medications Generic Name Dose Route Start Last Admin Trade Name Freq PRN Reason Stop Dose Admin Albuterol Sulfate 1 - 2 puff 04/28/19 18:30 Ventolin Hfa Inhaler - IH Q4H PRN SHORTNESS OF BREATH Sodium Chloride 1,000 mls @ 75 mls/hr 04/29/19 11:30 04/29/19 12:03 Normal Saline - IV 75 mls/hr ASDIR [facility] Administration ASSESSMENT/PLAN: Problem List - Problems (1) Elevated LFTs Code(s): R94.5 - ABNORMAL RESULTS OF LIVER FUNCTION STUDIES (2) Hepatocellular injury Code(s): K76.9 - LIVER DISEASE, UNSPECIFIED (3) HIV (human immunodeficiency virus infection) Code(s): Z21 - ASYMPTOMATIC HUMAN IMMUNODEFICIENCY VIRUS INFECTION STATUS Qualifiers: HIV symptom status: unspecified Qualified Code(s): B20 - Human immunodeficiency virus [HIV] disease (4) Trichomonas vaginalis infection Code(s): A59.9 - TRICHOMONIASIS, UNSPECIFIED (5) History of HIV infection Code(s): B20 - HUMAN IMMUNODEFICIENCY VIRUS [HIV] DISEASE (6) Seizures Code(s): R56.9 - UNSPECIFIED CONVULSIONS (7) DVT prophylaxis Code(s): Z29.9 - ENCOUNTER FOR PROPHYLACTIC MEASURES, UNSPECIFIED
[2019-04-30 14:39] LABS: INR 1.12 (0.83-1.09); PROTHROMBIN TIME (PATIENT) 13.2 SEC (9.7-13.0)
[2019-04-30] MEDS: SODIUM CHLORIDE 1,000 ML IV SCH (16:45)
--- NOTE | 2019-04-30 17:29 | DS ---
Physical Exam: SUBJECTIVE: Patient seen and examined at the bedside. explained to patient that she will need transfer to [facility] as recommended by Dr. Drake. Patient agrees to transfer. She denies any daily drinking, drinks beer occasionally, last drank last week. She smokes cocaine. No IVDU. OBJECTIVE: Patient is a 53 year old female with a significant past medical history of HIV infection since 1990, hypertension, seizure disorder, GERD and a history of cervical cancer (in remission since 1995), schizoaffective disorder. She presents from the [facility] to [facility] for elevated liver enzymes. She was also hospitalized for a psychiatric admission to [facility] from before [place] until 04/12/2019 and states that her medications were being adjusted ( she reports getting thorazine prn, cogentin and Haldol as an inpatient at [facility]). Her psyche medications have been held since admission due to elevated LFTs. Her LFTs were normal on labs done here on 03/02/2019, since then from 04/12/2019 her ALT increased from 138-1400s, Her AST increased from 114 - 1400. She was started on treatment with metronidazole 500mg BID x 7 days for trichomonas vaginalis infection on 04/12/2019. Per admission records, patient LFTs levels were taken last week and they were in the 100s and were repeated 2 days ago and are now in the 1000s. She also reports RLQ pain x3 days that is sharp and intermittent without radiation and improved with BM. She denies any current abdominal pain. imaging abdominal ultrasound : no liver abnormality seen. Vital Signs Period Temp Pulse Resp BP Sys/Jc Pulse Ox Last 24 Hr 98 F-98.6 F 70-75 18-18 121-129/79-79 97 PHYSICAL EXAM GENERAL: The patient is awake, alert, and fully oriented, in no acute distress. HEAD: Normal with no signs of trauma. EYES: PERRL, extraocular movements intact, sclera anicteric, conjunctiva clear. No ptosis. ENT: Ears normal, nares patent, oropharynx clear without exudates NECK: Trachea midline, full range of motion, supple. LUNGS: Breath sounds equal, clear to auscultation bilaterally, no wheezes HEART: Regular rate and rhythm ABDOMEN: Soft, nontender, nondistended, normoactive bowel sounds EXTREMITIES: no edema. NEUROLOGICAL: Normal speech, gait not observed. PSYCH: Normal mood, normal affect. SKIN: Warm, dry, normal turgor, no rashes or lesions noted LABS Laboratory Results - last 24 hr 04/28/19 04/29/19 04/30/19 14:05 17:30 07:37 WBC RBC Hgb Hct MCV MCH MCHC RDW Plt Count MPV Absolute Neuts (auto) Neutrophils % Neutrophils % (Manual) Band Neutrophils % Lymphocytes % Lymphocytes % (Manual) Monocytes % Monocytes % (Manual) Eosinophils % Eosinophils % (Manual) Basophils % Basophils % (Manual) Myelocytes % (Man) Promyelocytes % (Man) Blast Cells % (Manual) Nucleated RBC % Metamyelocytes Hypochromia Platelet Estimate Platelet Comment Polychromasia Poikilocytosis Anisocytosis Microcytosis Macrocytosis Spherocytes Target Cells Tear Drop Cells PT with INR INR Sodium 139 Potassium 4.1 Chloride 107 Carbon Dioxide 26 Anion Gap 6 L BUN 9.9 Creatinine 0.8 Est GFR (CKD-EPI)AfAm 98.93 Est GFR (CKD-EPI)NonAf 85.36 Random Glucose 75 Calcium 9.1 Magnesium 2.1 Total Bilirubin 1.3 H AST 1450 H ALT 1453 H Alkaline Phosphatase 317 H Ammonia Total Protein 7.6 Albumin 3.1 L TSH 0.63 Opiates Screen Negative Methadone Screen Negative Acetaminophen Barbiturate Screen Negative Phencyclidine Screen Negative Ur Amphetamines Screen Negative MDMA (Ecstasy) Screen Negative Benzodiazepines Screen Negative Cocaine Screen Positive A* U Marijuana (THC) Screen Negative Hep A IgM Ab Confirm Negative Hepatitis A Ab Total Positive H Hep Bs Antigen Positive H Hep Bs Antibody Reactive Hep B Core Total Ab Positive H Hep B Core IgM Ab Positive H Hepatitis Be Antibody Negative Hepatitis Be Antigen Positive H 04/30/19 04/30/19 04/30/19 07:37 12:50 12:50 WBC 2.6 L RBC 4.30 Hgb 12.3 Hct 36.7 MCV 85.4 MCH 28.6 MCHC 33.5 RDW 17.3 H Plt Count 298 MPV 7.8 Absolute Neuts (auto) 0.6 L Neutrophils % 24.8 L D Neutrophils % (Manual) 28.6 L Band Neutrophils % 0.0 Lymphocytes % 55.0 H D Lymphocytes % (Manual) 21.4 Monocytes % 17.7 H D Monocytes % (Manual) 12 H Eosinophils % 1.2 D Eosinophils % (Manual) 4.1 Basophils % 1.3 Basophils % (Manual) 4.1 H Myelocytes % (Man) 0 Promyelocytes % (Man) 0 Blast Cells % (Manual) 0 Nucleated RBC % 0 Metamyelocytes 0 Hypochromia 0 Platelet Estimate Normal Platelet Comment Present Polychromasia 0 Poikilocytosis 1+ Anisocytosis 1+ Microcytosis 1+ Macrocytosis 0 Spherocytes 1+ Target Cells 1+ Tear Drop Cells 1+ PT with INR INR Sodium Potassium Chloride Carbon Dioxide Anion Gap BUN Creatinine Est GFR (CKD-EPI)AfAm Est GFR (CKD-EPI)NonAf Random Glucose Calcium Magnesium Total Bilirubin AST ALT Alkaline Phosphatase Ammonia 62.70 H Total Protein Albumin TSH Opiates Screen Methadone Screen Acetaminophen <2.0 Barbiturate Screen Phencyclidine Screen Ur Amphetamines Screen MDMA (Ecstasy) Screen Benzodiazepines Screen Cocaine Screen U Marijuana (THC) Screen Hep A IgM Ab Confirm Hepatitis A Ab Total Hep Bs Antigen Hep Bs Antibody Hep B Core Total Ab Hep B Core IgM Ab Hepatitis Be Antibody Hepatitis Be Antigen 04/30/19 13:44 WBC RBC Hgb Hct MCV MCH MCHC RDW Plt Count MPV Absolute Neuts (auto) Neutrophils % Neutrophils % (Manual) Band Neutrophils % Lymphocytes % Lymphocytes % (Manual) Monocytes % Monocytes % (Manual) Eosinophils % Eosinophils % (Manual) Basophils % Basophils % (Manual) Myelocytes % (Man) Promyelocytes % (Man) Blast Cells % (Manual) Nucleated RBC % Metamyelocytes Hypochromia Platelet Estimate Platelet Comment Polychromasia Poikilocytosis Anisocytosis Microcytosis Macrocytosis Spherocytes Target Cells Tear Drop Cells PT with INR 13.20 H INR 1.12 H Sodium Potassium Chloride Carbon Dioxide Anion Gap BUN Creatinine Est GFR (CKD-EPI)AfAm Est GFR (CKD-EPI)NonAf Random Glucose Calcium Magnesium Total Bilirubin AST ALT Alkaline Phosphatase Ammonia Total Protein Albumin TSH Opiates Screen Methadone Screen Acetaminophen Barbiturate Screen Phencyclidine Screen Ur Amphetamines Screen MDMA (Ecstasy) Screen Benzodiazepines Screen Cocaine Screen U Marijuana (THC) Screen Hep A IgM Ab Confirm Hepatitis A Ab Total Hep Bs Antigen Hep Bs Antibody Hep B Core Total Ab Hep B Core IgM Ab Hepatitis Be Antibody Hepatitis Be Antigen HOSPITAL COURSE: Date of Admission:04/28/19 Date of Discharge: 04/30/19 Minutes to complete discharge: 60 Discharge Summary Problems reviewed: Yes Reason For Visit: ELEVATED LIVER FUNCTION TEST Current Active Problems DVT prophylaxis (Acute) DVT prophylaxis (Acute) Elevated LFTs (Acute) Hepatocellular injury (Acute) Seizures (Acute) HIV (human immunodeficiency virus infection) (Chronic) Condition: Worsened - Instructions Diet, Activity, Other Instructions: TRANSFER TO [facility] Referrals: Lainey Ferguson, SUEDE CLEANER [Primary Care Provider] - Disposition: TRANSFER ACUTE CARE/OTHER HOSP - Home Medications Comprehensive Discharge Medication List: Ambulatory Orders Albuterol Sulfate Inhaler - [Ventolin HFA Inhaler -] 1 - 2 inh PO Q4H #1 inhaler 09/03/16 Fluticasone Prop 0.05% Nasal [Flonase -] 1 - 2 spray NS DAILY #1 spray.pump Problem List - Problems (1) Elevated LFTs Assessment/Plan: elevated lfts began to trend up on 04/12/2019. possibly due to medication adverse effect? was prescribed metronidazole for vaginal infection. But also reported to have her psych medications adjusted also at [facility] ultrasound negative for any acute pathology normal acetaminophen levels + cocaine denies daily drinking, drank beer last week Hepatitis panel hep b antibody positive, hep b antigen posiitve repeating hepatitis panel to confirm accuracy repeat ammonia levels show increase, inr slighty elevated ID following and sent yang,asma,cmv, ebv Further workup per GI, patient for transfer to [facility] Accepting physician: Dr Byrnes, [facility], Dr. Duncan Kowalski, mitering machine operator. Code(s): R94.5 - ABNORMAL RESULTS OF LIVER FUNCTION STUDIES (2) Hepatocellular injury Assessment/Plan: hold off on any medications that can worsen liver toxicity Code(s): K76.9 - LIVER DISEASE, UNSPECIFIED (3) HIV (human immunodeficiency virus infection) Assessment/Plan: being followed by Dr. Colby. Antivirals being held Code(s): Z21 - ASYMPTOMATIC HUMAN IMMUNODEFICIENCY VIRUS INFECTION STATUS Qualifiers: HIV symptom status: unspecified Qualified Code(s): B20 - Human immunodeficiency virus [HIV] disease (4) Trichomonas vaginalis infection Assessment/Plan: treated with flagyl, but unsure if patient completed medication Code(s): A59.9 - TRICHOMONIASIS, UNSPECIFIED (5) History of HIV infection Assessment/Plan: see above Code(s): B20 - HUMAN IMMUNODEFICIENCY VIRUS [HIV] DISEASE (6) Seizures Assessment/Plan: no seizures in many years. was on vimpat in 2017, has not been on any anti seizure medications from review of past visits at [facility]. Code(s): R56.9 - UNSPECIFIED CONVULSIONS (7) DVT prophylaxis Assessment/Plan: [facility] Code(s): Z29.9 - ENCOUNTER FOR PROPHYLACTIC MEASURES, UNSPECIFIED This patient is new to me today: No Emergency Visit: Yes ED Registration Date: 04/28/19 Care time: The patient presented to the Emergency Department on the above date and was hospitalized for further evaluation of their emergent condition. Critical Care patient: No - Discharge Referral Referred to [facility] No
[2019-04-30 21:30] VITALS: BP 120/80; PULSE 80; TEMP 98.7
[2019-05-01 06:06] LABS: CMV IgM < 30.0 AU/mL (0.0-29.9)
[2019-05-03 19:06] LABS: MITOCHONDRIAL AB <20.0 Units (0.0-20.0)
[2019-05-03 22:08] LABS: HEP B CORE AB, TOT Positive (Negative)
== END 2019-04-30 21:30 | disposition short-term general hospital (02) | DRG 816 ==
LOC: JER 11:55 → JERBED 17:18 → J6S 23:32
PROVIDERS: ADMIT Internal Medicine; ATTEND Nurse Practitioner Family
DX: T40.5X1A Poisoning by cocaine, accidental (unintentional), initial encounter (principal); Z85.41 Personal history of malignant neoplasm of cervix uteri; A59.9 Trichomoniasis, unspecified; K76.9 Liver disease, unspecified; R94.5 Abnormal results of liver function studies; I10 Essential (primary) hypertension; F25.9 Schizoaffective disorder, unspecified; K21.9 Gastro-esophageal reflux disease without esophagitis; F17.210 Nicotine dependence, cigarettes, uncomplicated
CPT/HCPCS: 36415; 76700-TC; 80053; 80074; 80307; 81003; 82140; 82150; 82550; 83516; 83690; 83735; 84100; 84443; 85025; 85027; 85610; 85730; 86038; 86359; 86360; 86644; 86645; 86663; 86664; 86665; 86704; 86706; 86707; 86708; 86709; 86803; 87040; 87086; 87340; 87350; 87497; 87517; 87522; 87799; 93005; 93010; 99285-25; J7030

== ENCOUNTER 2019-12-03 21:55 | Inpatient (IN) | payer OTHER ==
[2019-12-03 22:47] VITALS: BMI 21.9
--- NOTE | 2019-12-03 22:56 | HP ---
COWS - Scale Resting Pulse: 1= [place] 81-100 Sweatin= Chills/Flushing Restless Observation: 1= Difficult to Sit Still Pupil Size: 0= Normal to Room Light Bone or Joint Aches: 4=Acute Joint/Muscle Pain Runny Nose/ Eye Tearin= None GI Upset > 30mins: 1= Stomach Cramp Tremor Observation: 2= Slight Tremor Visible Yawning Observation: 1= 1-2x During Session Anxiety or Irritability: 2=Irritable/Anxious Goose Flesh Skin: 0=Smooth Skin COWS Score: 13 CIWA Score Nausea/Vomitin Muscle Tremors: 3 Anxiety: 3 Agitation: 2 Paroxysmal Sweats: 2 Orientation: 2-Disoriented Date<2 days Tacttile Disturbances: 0-None Auditory Disturbances: 0-None Visual Disturbances: 0-None Headache: 0-None Present CIWA-Ar Total Score: 14 - Admission Criteria OASAS Guidelines: Admission for Medically Managed Detox: Requires at least one of the followin. CIWA greater than 12 2. Seizures within the past 24 hours 3. Delirium tremens within the past 24 hours 4. Hallucinations within the past 24 hours 5. Acute intervention needed for co occurring medical disorder 6. Acute intervention needed for co occurring psychiatric disorder 7. Severe withdrawal that cannot be handled at a lower level of care (continued vomiting, continued diarrhea, abnormal vital signs) requiring intravenous medication and/or fluids 8. Admitting History and Physical - Past Medical History Cardiovascular: Yes: HTN ...LMP: 08/19/16 Psych: Yes: Other - Past Surgical History Past Surgical History: Yes: Colonoscopy, , Upper Endoscopy - Smoking History Smoking history: Current every day smoker Have you smoked in the past 12 months: Yes Aproximately how many cigarettes per day: 10 - Alcohol/Substance Use Hx Alcohol Use: Yes Admission [facility] Chief Complaint: Seeking admission to detox from heroin and alcohol Allergies/Adverse Reactions: Allergies Allergy/AdvReac Type Severity Reaction Status Date / Time sulfamethoxazole Allergy Severe Hives Verified 11/14/19 18:17 [From Bactrim] trimethoprim [From Bactrim] Allergy Severe Hives Verified 11/14/19 18:17 History of Present Illness: 54 years old female is seeking to detox from alcohol and heroin. Her last admission was for the period 11/14/2019 - 11/18/2019 and she reports that she relapsed the day she was discharged. She has medical history of hypertension, GERD, asthma, Hep. B, seizures, HIV+, psych. history of schizophrenia and she denies suicidal ideation. She is unemployed, lives alone and denies legal issues. 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 Patient was recently discharged but due to comorbid medical conditions and psych. history, patient will be readmitted to detox. Exam Limitations: No Limitations - Ebola screening Have you traveled outside of the country in the last 21 days: No Have you had contact with anyone from an Ebola affected area: No Have you been sick,other than usual withdrawal symptoms: No Do you have a fever: No - Review of Systems Constitutional: Chills, Malaise, Night Sweats, Changes in sleep EENT: reports: No Symptoms Reported Respiratory: reports: No Symptoms reported Cardiac: reports: No Symptoms Reported GI: reports: No Symptoms Reported, Constipated, Nausea, Poor Fluid Intake, Abdominal cramping : reports: No Symptoms Reported Musculoskeletal: reports: Back Pain (abdominal pain), Other Integumentary: reports: Dryness, Flushing Neuro: reports: Headache, Tremors Endocrine: reports: No Symptoms Reported Hematology: reports: No Symptoms Reported Psychiatric: reports: Agitated, Anxious, Depressed Other Systems: Reviewed and Negative Patient History - Patient Medical History Hx Anemia: No Hx Asthma: No Hx Chronic Obstructive Pulmonary Disease (COPD): No Hx Cancer: Yes (cervical CA 1996. remission) Hx Cardiac Disorders: No Hx Congestive Heart Failure: No Hx Hypertension: No Hx Hypercholesterolemia: No Hx Pacemaker: No HX Cerebrovascular Accident: No Hx Seizures: Yes (ALCOHOL RELATED SEIZURES) Hx Dementia: No Hx Diabetes: No Hx Gastrointestinal Disorders: No Hx Liver Disease: No Hx Genitourinary Disorders: No Hx Sexually Transmitted Disorders: No Hx Renal Disease (ESRD): No Hx Thyroid Disease: No Hx Human Immunodeficiency Virus (HIV): Yes (GENVOYA) Hx Hepatitis C: No (2016) Hx Depression: No Hx Suicide Attempt: No (denies) Hx Bipolar Disorder: No Hx Schizophrenia: Yes - Patient Surgical History Past Surgical History: Yes Hx Neurologic Surgery: No Hx Cataract Extraction: No Hx Cardiac Surgery: No Hx Lung Surgery: No Hx Breast Surgery: No Hx Breast Biopsy: No Hx Abdominal Surgery: No Hx Appendectomy: No Hx Cholecystectomy: No Hx Genitourinary Surgery: No Hx Section: No Hx Orthopedic Surgery: No Hx Hysterectomy: No Other Surgical History: IN 2004, LEEP PROCEDURE FOR CERVIX CANCER 1995 Anesthesia Reaction: Yes (03/02/19 - denies) - PPD History Date: 11/16/19 Results: 0 MM - Reproductive History Last Menstrual Period: 08/19/16 - Smoking Cessation Smoking history: Current every day smoker Have you smoked in the past 12 months: Yes Aproximately how many cigarettes per day: 10 Hx Chewing Tobacco Use: No Initiated information on smoking cessation: Yes 'Breaking Loose' booklet given: 12/03/19 Admission Physical Exam S - Vital Signs Vital Signs: Vital Signs - 24 hr 12/03/19 22:43 Temperature 98.0 F Pulse Rate 97 H Respiratory 18 Rate Blood Pressure 126/83 - Physical General Appearance: Yes: Moderate Distress, Tremorous, Irritable, Anxious HEENTM: Yes: Within Normal Limits Respiratory: Yes: Lungs Clear, Normal Breath Sounds, No Respiratory Distress Neck: Yes: Within Normal Limits Breast: Yes: Breast Exam Deferred Cardiology: Yes: Tachycardia Abdominal: Yes: Within Normal Limits Genitourinary: Yes: Within Normal Limits Back: Yes: Normal Inspection Musculoskeletal: Yes: Back pain, Muscle Pain Extremities: Yes: Tremors Neurological: Yes: Within Normal Limits Integumentary: Yes: Warm Lymphatic: Yes: Within Normal Limits - Diagnostic (1) Alcohol related seizure Current Visit: Yes Status: Chronic (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 (3) Alcohol dependence with withdrawal, uncomplicated Current Visit: Yes Status: Acute (4) Asthma Current Visit: Yes Status: Chronic Qualifiers: Asthma severity: mild Asthma persistence: intermittent Asthma complication type: unspecified Qualified Code(s): J45.20 - Mild intermittent asthma, uncomplicated Comment: uses albuterol, zyrtec prn (5) Cocaine dependence Current Visit: Yes Status: Chronic Qualifiers: Substance use status: uncomplicated Qualified Code(s): F14.20 - Cocaine dependence, uncomplicated Comment: s/p recent admission for substance use discussed relapse prevention, avail. of NA/AA meetings, outpt rehab (6) GERD (gastroesophageal reflux disease) Current Visit: Yes Status: Chronic Qualifiers: Esophagitis presence: without esophagitis Qualified Code(s): K21.9 - Gastro-esophageal reflux disease without esophagitis Comment: refill omeprazole; discussed dietary/lifestyle modifications, avoid nsaids; states she has seen GI for problem (7) HIV (human immunodeficiency virus infection) Current Visit: Yes Status: Chronic Qualifiers: HIV symptom status: unspecified Qualified Code(s): B20 - Human immunodef iciency virus [HIV] disease Comment: on Genvoya discussed adherence to meds, benefits/goals of tx, importance of f/u and monitoring (8) Hypertension Current Visit: Yes Status: Chronic Qualifiers: Hypertension type: essential hypertension Qualified Code(s): I10 - Essential (primary) hypertension Comment: on hctz, amlodipine (9) Nicotine dependence Current Visit: Yes Status: Chronic Qualifiers: Nicotine product type: cigarettes Substance use status: uncomplicated Qualified Code(s): F17.210 - Nicotine dependence, cigarettes, uncomplicated Comment: encouraged smoking cessation; pt states she is not ready to quit at this time (10) Schizoaffective disorder Current Visit: Yes Status: Chronic Qualifiers: Schizoaffective disorder type: unspecified Qualified Code(s): F25.9 - Schizoaffective disorder, unspecified Comment: Followed by the [facility] ACT team. On Haldol decanoate 100 mg / 1 ml inject 1.5 ml IM every 4 weeks cogentin 2 mg 1 tab po bid ACT Team: Dr. Rowley / Kate Mcbride [phone] Next injection due 09/23/19 (11) Opioid dependence with withdrawal Current Visit: Yes Status: Acute Cleared for Admission [facility] - Detox or Rehab [facility] Level of Care: Medically Managed Detox Regimen/Protocol: Methadone/Librium Claeared for Rehab Admission: No Breathalyzer - Breathalyzer Breathalyzer: 0 Urine Drug Screen - Test Device Lot number: [id number] Expiration date: 07/13/21 - Control Is test valid?: Yes - Results Drug screen NEGATIVE: No Urine drug screen results: MARISELA-Cocaine, MOP-Opiates Inpatient Rehab Admission - Rehab Decision to Admit Inpatient rehab admission?: No
[2019-12-03] MEDS ORDERED: ACETAMINOPHEN 325 MG TABLET (FP) PO PRN ×2 (23:15)
[2019-12-03] MEDS ORDERED: MENTHOL/PHENOL 1 EACH UD MM PRN (23:15)
[2019-12-03] MEDS ORDERED: MAGNESIUM CITRATE 300 ML BOTTLE PO PRN (23:15)
[2019-12-03] MEDS ORDERED: MAGNESIUM HYDROX 2400MG/30ML ORAL SUSPENSION 30 ML CUP PO PRN (23:15)
[2019-12-03] MEDS ORDERED: chlordiazePOXIDE HCL 25 MG CAPSULE PO PRN (23:15)
[2019-12-03] MEDS ORDERED: IBUPROFEN 400 MG TABLET (FP) PO PRN (23:15)
[2019-12-03] MEDS ORDERED: METHADONE HCL 10 MG TABLET (FOR DETOX USE ONLY) PO ONE (23:15)
[2019-12-03] MEDS ORDERED: ONDANSETRON *ODT* 4 MG TABLET SL ONE (23:15)
[2019-12-03] MEDS ORDERED: BISMUTH SUBSALICYLATE 524 MG/30 ML UD PO PRN (23:15)
[2019-12-03] MEDS ORDERED: cloNIDine HCL 0.1 MG TABLET PO PRN (23:15)
[2019-12-03] MEDS ORDERED: NICOTINE POLACRILEX 2 MG GUM BUC PRN (23:15)
[2019-12-03] MEDS ORDERED: MAG HYDROX/AL HYDROX/SIMETH 30 ML UNIT-DOSE CUP PO PRN (23:15)
[2019-12-03] MEDS ORDERED: METHOCARBAMOL 500 MG TABLET PO PRN (23:15)
[2019-12-04] MEDS: chlordiazePOXIDE HCL 25 MG CAPSULE PO SCH ×5 (00:47→22:56)
[2019-12-04] MEDS ORDERED: METHADONE HCL 10 MG TABLET (FOR DETOX USE ONLY) ONE (09:48)
[2019-12-04] MEDS ORDERED: METHADONE HCL 5 MG TABLET (FOR DETOX USE ONLY) ONE (09:48)
[2019-12-04] MEDS ORDERED: METHADONE (DETOX) 20 MG, METHADONE (DETOX) 5 MG PO ONE (10:00)
--- NOTE | 2019-12-04 10:55 | PN ---
S CIWA - CIWA Score Nausea/Vomitin-No Nausea/No Vomiting Muscle Tremors: 2 Anxiety: 3 Agitation: 1-Slight > Activity Paroxysmal Sweats: 3 Orientation: 0-Oriented Tacttile Disturbances: 0-None Auditory Disturbances: 0-None Visual Disturbances: 0-None Headache: 2-Mild CIWA-Ar Total Score: 11 BHS COWS - Scale Resting Pulse: 0= [place] 80 or Below Sweatin= Beads of Sweat on Face Restless Observation: 1= Difficult to Sit Still Pupil Size: 0= Normal to Room Light Bone or Joint Aches: 2= Severe Diffuse Aches Runny Nose/ Eye Tearin= None GI Upset > 30mins: 0= None Tremor Observation of Outstretched Hands: 2= Slight Tremor Visible Yawning Observation: 1= 1-2x During Session Anxiety or Irritability: 2=Irritable/Anxious Goose Flesh Skin: 0=Smooth Skin COWS Score: 11 S Progress Note (SOAP) Subjective: c/o sweats, headache, muscle aches, shakes, and anxiety. Objective: 12/04/19 10:54 Vital Signs 12/04/19 12/04/19 06:17 08:30 Temperature 96.8 F L 98.1 F Pulse Rate 63 74 Respiratory 16 18 Rate Blood Pressure 114/74 117/81 O2 Sat by Pulse 96 Oximetry (%) Labs pending. Assessment: 12/04/19 10:55 AOX3, in no acute respiratory distress. Full ROM, ambulating in the unit. Withdrawal symptoms. Plan: continue detox.
[2019-12-04] MEDS: NICOTINE 14 MG/24 HOURS TOPICAL PATCH TD SCH (11:09)
[2019-12-04] MEDS: PRENATAL VITAMINS W/ FOLIC ACID TABLET (FP) PO SCH (11:10)
[2019-12-04 12:30] LABS: HEMATOCRIT 35.7 % (32.4-45.2); HEMOGLOBIN 12.2 GM/dL (10.7-15.3); MCH 30.2 pg (25.7-33.7); MCHC 34.3 g/dl (32.0-36.0); MEAN CELL VOLUME 88.2 fl (80-96); MEAN PLT VOLUME 8.5 fl (7.5-11.1); PLATELET COUNT 243 K/MM3 (134-434); RBC 4.05 M/mm3 (3.60-5.2); RDW 14.5 % (11.6-15.6); WHITE BLOOD COUNT 7.2 K/mm3 (4.0-10.0)
[2019-12-04 12:47] LABS: ALBUMIN 3.7 g/dl (3.4-5.0); BLOOD UREA NITROGEN 9.8 mg/dL (7-18); CALCIUM 9.2 mg/dL (8.5-10.1); POTASSIUM 3.6 mmol/L (3.5-5.1)
[2019-12-04 12:48] LABS: BILIRUBIN,TOTAL 1.2 mg/dL (0.2-1); TOT PROT 7.7 g/dl (6.4-8.2)
--- NOTE | 2019-12-04 12:49 | CONSULT ---
[facility] Psychiatric Consult - Data Date of interview: 12/04/19 Admission source: [facility] Identifying data: Readmission to [facility] at [address] [place] [address] for this 54 y/o AA female self-referred for detoxification treatment. JESSICA issues : heroin, nicotine, alcohol, cocaine. Patient is single, a mother of three, domiciled ([facility] in [place], [place]), unemployed and supported on [employer] benefits. Substance Abuse History: Discussed with the patient. JESSICA profile as follows : alcohol, cocaine, heroin. History of Substance Use Treatment: detox, rehab, outpatient methadone maintenance. Patient uses heroin (inhalation) + alcohol on a daily basis. Smokes crack/cocaine + 10 cigarettes a day. Ms Briceño presents with history of multiple JESSICA treatment failures. Medical History: Medical profile is remarkable for borderline diabetes mellitus, HIV infection since 1990 (on ART meds), hypertension, seizure disorder, GERD, antecedent of myocardial infarction, past surgeries (colonoscopy, section, upper endoscopy) and a history of cervical cancer (in remission since 1995). Psychiatric History: Patient presents with a long-standing history of mental illness (admitted to [facility] for post- psychosis in 1990). Diagnosed later with Schizoaffective Disorder. Ms Briceño is still followed by the [facility]-ACT team (ACT Team: Dr. Rowley / Kate Mcbride at [phone]). She is maintained on cogentin (dose not recalled) + haldol decanoate 200 mg/IM monthly (last injection dispensed TWO days ago, as per self-report). Patient endorses a history of multiple psychiatric hospitalizations ([facility], [facility], [facility]). Patient denies history of suicide attempts. Physical/Sexual Abuse/Trauma History: Not discussed in this session. Patient declines. Additional Comment: Urine drug screen results: MARISELA-Cocaine, MOP-Opiates. Noted. Mental Status Exam - Mental Status Exam Alert and Oriented to: Time, Place, Person Cognitive Function: Good Patient Appearance: Unkempt, Disheveled Mood: Withdrawn Affect: Mood Congruent, Constricted Patient Behavior: Fatigued, Appropriate, Cooperative Speech Pattern: Clear, Appropriate Voice Loudness: Normal Thought Process: Goal Oriented Thought Disorder: Not Present Hallucinations: Denies Suicidal Ideation: Denies Homicidal Ideation: Denies Insight/Judgement: Poor Sleep: Well Gait/Station: Normal Psychiatric Findings - Problem List ([place] 1, 2,3) (1) Alcohol dependence with withdrawal, uncomplicated Current Visit: Yes Status: Acute (2) Opioid dependence with withdrawal Current Visit: Yes Status: Acute (3) Cocaine dependence Current Visit: Yes Status: Chronic Qualifiers: Substance use status: uncomplicated Qualified Code(s): F14.20 - Cocaine dependence, uncomplicated (4) Nicotine dependence Current Visit: Yes Status: Chronic Qualifiers: Nicotine product type: cigarettes Substance use status: uncomplicated Qualified Code(s): F17.210 - Nicotine dependence, cigarettes, uncomplicated (5) Schizoaffective disorder Current Visit: Yes Status: Chronic Qualifiers: Schizoaffective disorder type: unspecified Qualified Code(s): F25.9 - Schizoaffective disorder, unspecified - Initial Treatment Plan Initial Treatment Plan: Psychoeducation. Sleep hygiene. Support. Detoxification in progress. Resumed cogentin 1 mg po bid. Side effects/benefits discussed with the patient. Consent (verbal) given to . ACT team cannot be contacted, at this time, for verification of hadol decanoate dose (office closed). Observation.
[2019-12-04] MEDS: BENZTROPINE MESYLATE 1 MG TABLET PO SCH (22:53)
[2019-12-04] MEDS: THIAMINE HCL 100 MG TABLET (FP) PO SCH (22:54)
[2019-12-04] MEDS: MELATONIN 5 MG TABLETS PO SCH (22:56)
[2019-12-05] MEDS: chlordiazePOXIDE HCL 25 MG CAPSULE PO SCH ×4 (06:40→22:18)
[2019-12-05] MEDS ORDERED: METHADONE HCL 10 MG TABLET (FOR DETOX USE ONLY) PO ONE (10:00)
[2019-12-05] MEDS: BENZTROPINE MESYLATE 1 MG TABLET PO SCH ×2 (10:28→22:18)
[2019-12-05] MEDS: NICOTINE 14 MG/24 HOURS TOPICAL PATCH TD SCH (10:28)
[2019-12-05] MEDS: PRENATAL VITAMINS W/ FOLIC ACID TABLET (FP) PO SCH (10:28)
--- NOTE | 2019-12-05 13:11 | PN ---
[facility] CIWA - CIWA Score Nausea/Vomitin-Mild Nausea/No Vomiting Muscle Tremors: 2 Anxiety: 1-Mildly Anxious Agitation: 1-Slight > Activity Paroxysmal Sweats: 2 Orientation: 0-Oriented Tacttile Disturbances: 0-None Auditory Disturbances: 0-None Visual Disturbances: 1-Very Mild Sensitivity Headache: 1-Very Mild CIWA-Ar Total Score: 9 S COWS - Scale Resting Pulse: 0= [place] 80 or Below Sweatin= Chills/Flushing Restless Observation: 0= Sits Still Pupil Size: 1= Pupils >than Normal Bone or Joint Aches: 1= Mild Discomfort Runny Nose/ Eye Tearin= None GI Upset > 30mins: 2= Nausea/Diarrhea Tremor Observation of Outstretched Hands: 2= Slight Tremor Visible Yawning Observation: 0= None Anxiety or Irritability: 2=Irritable/Anxious Goose Flesh Skin: 0=Smooth Skin COWS Score: 9 [facility] Progress Note (SOAP) Subjective: 54 years old female was admitted on 12/03/19 for alcohol and opiate withdrawal sx management treating with librium and methadone detox regiments ate small amount of meals continue ensure supplement feels tired resting in bed limited conversation with staff Objective: 12/05/19 13:11 Vital Signs - 24 hr 12/04/19 12/04/19 12/05/19 16:23 20:25 06:36 Temperature 97.7 F 96.9 F L 97.3 F L Pulse Rate 54 L 95 H 76 Respiratory 18 18 18 Rate Blood Pressure 107/70 92/68 113/84 O2 Sat by Pulse 96 100 Oximetry (%) 12/05/19 12/05/19 08:53 12:37 Temperature 97.7 F 97.5 F L Pulse Rate 53 L 68 Respiratory 18 18 Rate Blood Pressure 103/65 104/79 O2 Sat by Pulse 97 Oximetry (%) Laboratory Tests 12/04/19 12/04/19 12/04/19 07:50 07:50 07:50 WBC 7.2 RBC 4.05 Hgb 12.2 Hct 35.7 MCV 88.2 MCH 30.2 MCHC 34.3 RDW 14.5 Plt Count 243 D MPV 8.5 Sodium 141 Potassium 3.6 Chloride 103 Carbon Dioxide 34 H Anion Gap 3 L BUN 9.8 Creatinine 1.0 Est GFR (CKD-EPI)AfAm 75.01 Est GFR (CKD-EPI)NonAf 64.72 Random Glucose 59 L Calcium 9.2 Total Bilirubin 1.2 H AST 26 ALT 16 Alkaline Phosphatase 75 Total Protein 7.7 Albumin 3.7 Syphilis Serology Non-reactive 12/05/19 13:12 covid pending Assessment: 12/05/19 13:12 alcohol and opiate withdrawal 12/05/19 13:12 Plan: librium and methadone regiments
[2019-12-05] MEDS: THIAMINE HCL 100 MG TABLET (FP) PO SCH (22:18)
[2019-12-05] MEDS: MELATONIN 5 MG TABLETS PO SCH (22:20)
[2019-12-06] MEDS ORDERED: chlordiazePOXIDE HCL 10 MG CAPSULE PO PRN
[2019-12-06] MEDS: chlordiazePOXIDE HCL 10 MG CAPSULE PO SCH ×4 (06:22→23:11)
--- NOTE | 2019-12-06 09:33 | PN ---
S CIWA - CIWA Score Nausea/Vomitin-Mild Nausea/No Vomiting Muscle Tremors: 1-None Visible, but [place] Anxiety: 1-Mildly Anxious Agitation: 0-Normal Activity Paroxysmal Sweats: 1-Minimal Palms Moist Orientation: 1-Uncertain about Date Tacttile Disturbances: 0-None Auditory Disturbances: 0-None Visual Disturbances: 2-Mild Sensitivity Headache: 0-None Present CIWA-Ar Total Score: 7 BHS COWS - Scale Resting Pulse: 0= [place] 80 or Below Sweatin= Chills/Flushing Restless Observation: 0= Sits Still Pupil Size: 1= Pupils >than Normal Bone or Joint Aches: 1= Mild Discomfort Runny Nose/ Eye Tearin= Nasal Congestion GI Upset > 30mins: 1= Stomach Cramp Tremor Observation of Outstretched Hands: 1= Tremor [place], Not Seen Yawning Observation: 0= None Anxiety or Irritability: 1=Feels Anxious/Irritable Goose Flesh Skin: 0=Smooth Skin COWS Score: 7 S Progress Note (SOAP) Subjective: 54 years old female was admitted on 12/03/19 for alcohol and opiate withdrawal sx management treating with librium and methadone detox regiments feels tired discussing nutrition and hygiene bmi 21.9 ensure 120 ml po tid with meals Objective: 12/06/19 09:32 Vital Signs - 24 hr 12/05/19 12/05/19 12/05/19 12:37 16:48 20:50 Temperature 97.5 F L 97.9 F 98.1 F Pulse Rate 68 58 L 69 Respiratory 18 17 17 Rate Blood Pressure 104/79 101/78 128/87 O2 Sat by Pulse 97 97 Oximetry (%) 12/06/19 12/06/19 06:03 09:22 Temperature 97.3 F L 97.5 F L Pulse Rate 53 L 69 Respiratory 16 18 Rate Blood Pressure 115/78 110/84 O2 Sat by Pulse 99 99 Oximetry (%) Laboratory Tests 12/03/19 12/04/19 12/04/19 22:47 07:50 07:50 WBC 7.2 RBC 4.05 Hgb 12.2 Hct 35.7 MCV 88.2 MCH 30.2 MCHC 34.3 RDW 14.5 Plt Count 243 D MPV 8.5 Sodium Potassium Chloride Carbon Dioxide Anion Gap BUN Creatinine Est GFR (CKD-EPI)AfAm Est GFR (CKD-EPI)NonAf Random Glucose Calcium Total Bilirubin AST ALT Alkaline Phosphatase Total Protein Albumin POC Urine HCG, Qual Negative Syphilis Serology Non-reactive COVID-19 ([facility]) 12/04/19 12/04/19 07:50 09:35 WBC RBC Hgb Hct MCV MCH MCHC RDW Plt Count MPV Sodium 141 Potassium 3.6 Chloride 103 Carbon Dioxide 34 H Anion Gap 3 L BUN 9.8 Creatinine 1.0 Est GFR (CKD-EPI)AfAm 75.01 Est GFR (CKD-EPI)NonAf 64.72 Random Glucose 59 L Calcium 9.2 Total Bilirubin 1.2 H AST 26 ALT 16 Alkaline Phosphatase 75 Total Protein 7.7 Albumin 3.7 POC Urine HCG, Qual Syphilis Serology COVID-19 ([facility]) Not detected lab noted Assessment: 12/06/19 09:32 alcohol and opiate withdrawal Plan: librium and methadone regiments
[2019-12-06] MEDS ORDERED: METHADONE HCL 10 MG TABLET (FOR DETOX USE ONLY) ONE (09:48)
[2019-12-06] MEDS ORDERED: METHADONE HCL 5 MG TABLET (FOR DETOX USE ONLY) ONE (09:48)
[2019-12-06] MEDS ORDERED: METHADONE (DETOX) 10 MG, METHADONE (DETOX) 5 MG PO ONE (10:00)
[2019-12-06] MEDS: PRENATAL VITAMINS W/ FOLIC ACID TABLET (FP) PO SCH (10:24)
[2019-12-06] MEDS: BENZTROPINE MESYLATE 1 MG TABLET PO SCH ×2 (10:24→23:11)
[2019-12-06] MEDS: NICOTINE 14 MG/24 HOURS TOPICAL PATCH TD SCH (10:25)
[2019-12-06] MEDS: THIAMINE HCL 100 MG TABLET (FP) PO SCH (23:09)
[2019-12-06] MEDS: MELATONIN 5 MG TABLETS PO SCH (23:11)
[2019-12-07] MEDS: chlordiazePOXIDE HCL 10 MG CAPSULE PO SCH ×2 (05:59→18:08)
--- NOTE | 2019-12-07 09:12 | PN ---
S CIWA - CIWA Score Nausea/Vomitin-Mild Nausea/No Vomiting Muscle Tremors: 1-None Visible, but [place] Anxiety: 1-Mildly Anxious Agitation: 0-Normal Activity Paroxysmal Sweats: 1-Minimal Palms Moist Orientation: 0-Oriented Tacttile Disturbances: 0-None Auditory Disturbances: 0-None Visual Disturbances: 1-Very Mild Sensitivity Headache: 0-None Present CIWA-Ar Total Score: 5 BHS COWS - Scale Resting Pulse: 0= [place] 80 or Below Sweatin= No chills or [place]ushing Restless Observation: 0= Sits Still Pupil Size: 0= Normal to Room Light Bone or Joint Aches: 1= Mild Discomfort Runny Nose/ Eye Tearin= None GI Upset > 30mins: 2= Nausea/Diarrhea Tremor Observation of Outstretched Hands: 1= Tremor [place], Not Seen Yawning Observation: 0= None Anxiety or Irritability: 1=Feels Anxious/Irritable Goose Flesh Skin: 0=Smooth Skin COWS Score: 5 S Progress Note (SOAP) Subjective: 54 years old female was admitted on 12/03/19 for alcohol and opiate withdrawal sx management treating with librium and methadone detox regiments feels better today less tremor mild anxiety discussing medication assisted treatment program [facility] Objective: 12/07/19 09:10 Vital Signs - 24 hr 12/06/19 12/06/19 12/06/19 09:22 12:43 16:43 Temperature 97.5 F L 97.2 F L 97.7 F Pulse Rate 69 58 L 50 L Respiratory 18 18 18 Rate Blood Pressure 110/84 119/74 111/69 O2 Sat by Pulse 99 98 98 Oximetry (%) 12/06/19 12/07/19 20:54 06:38 Temperature 97.8 F 97.3 F L Pulse Rate 66 58 L Respiratory 16 18 Rate Blood Pressure 109/68 121/75 O2 Sat by Pulse 94 L 99 Oximetry (%) Laboratory Tests 12/03/19 12/04/19 12/04/19 22:47 07:50 07:50 WBC 7.2 RBC 4.05 Hgb 12.2 Hct 35.7 MCV 88.2 MCH 30.2 MCHC 34.3 RDW 14.5 Plt Count 243 D MPV 8.5 Sodium Potassium Chloride Carbon Dioxide Anion Gap BUN Creatinine Est GFR (CKD-EPI)AfAm Est GFR (CKD-EPI)NonAf Random Glucose Calcium Total Bilirubin AST ALT Alkaline Phosphatase Total Protein Albumin POC Urine HCG, Qual Negative Syphilis Serology Non-reactive COVID-19 ([facility]) 12/04/19 12/04/19 07:50 09:35 WBC RBC Hgb Hct MCV MCH MCHC RDW Plt Count MPV Sodium 141 Potassium 3.6 Chloride 103 Carbon Dioxide 34 H Anion Gap 3 L BUN 9.8 Creatinine 1.0 Est GFR (CKD-EPI)AfAm 75.01 Est GFR (CKD-EPI)NonAf 64.72 Random Glucose 59 L Calcium 9.2 Total Bilirubin 1.2 H AST 26 ALT 16 Alkaline Phosphatase 75 Total Protein 7.7 Albumin 3.7 POC Urine HCG, Qual Syphilis Serology COVID-19 ([facility]) Not detected lab noted Assessment: 12/07/19 09:11 alcohol and opiate withdrawal HIV Plan: librium and methadone regiments procedure writer call preferred pharmacy [phone] last filled 11/30/19 cruze jass
[2019-12-07] MEDS: BENZTROPINE MESYLATE 1 MG TABLET PO SCH ×2 (09:54→23:03)
[2019-12-07] MEDS: PRENATAL VITAMINS W/ FOLIC ACID TABLET (FP) PO SCH (09:54)
[2019-12-07] MEDS: NICOTINE 14 MG/24 HOURS TOPICAL PATCH TD SCH (09:55)
[2019-12-07] MEDS ORDERED: METHADONE HCL 10 MG TABLET (FOR DETOX USE ONLY) PO ONE (10:00)
[2019-12-07] MEDS: ELVITEG/COB/EMTRI/TENOF (GENVOYA) TABLET (NF) PO SCH (12:23)
[2019-12-07] MEDS: THIAMINE HCL 100 MG TABLET (FP) PO SCH (23:03)
[2019-12-07] MEDS: MELATONIN 5 MG TABLETS PO SCH (23:03)
[2019-12-08] MEDS ORDERED: chlordiazePOXIDE HCL 10 MG CAPSULE PO ONE (05:00)
[2019-12-08] MEDS ORDERED: METHADONE HCL 5 MG TABLET (FOR DETOX USE ONLY) PO ONE (06:00)
[2019-12-08 06:34] VITALS: TEMP 97.5
[2019-12-08] MEDS: ELVITEG/COB/EMTRI/TENOF (GENVOYA) TABLET (NF) PO SCH (07:19)
[2019-12-08 09:41] VITALS: BP 96/70; PULSE 92
--- NOTE | 2019-12-08 09:57 | DS ---
[facility] Detox Discharge Summary Admission Date: 12/03/19 Discharge Date: 12/08/19 - History Present History: Alcohol Dependence, Opioid Dependence Additional Comments: 54 years old female was admitted on 12/03/19 for alcohol and opiate withdrawal sx management treated with librium and methadone detox regiments seen by psychiatrist michael mcneill augmentation with haldol decanoate IM monthly at [facility] team management ms hoover has completed the librium and methadone regiments and is tolerated well General Appearance: Yes: no Distress, mild Tremorous, not Irritable, less Anxious HEENTM: Yes: Within Normal Limits Respiratory: Yes: Lungs Clear, Normal Breath Sounds, No Respiratory Distress Neck: Yes: Within Normal Limits Breast: Yes: Breast Exam Deferred Cardiology: Yes: Tachycardia Abdominal: Yes: Within Normal Limits Genitourinary: Yes: Within Normal Limits Back: Yes: Normal Inspection Musculoskeletal: Yes: Back pain, Muscle Pain Extremities: Yes: Tremors Neurological: Yes: Within Normal Limits Integumentary: Yes: Warm Lymphatic: Yes: Within Normal Limits Pertinent Past History: time for discharge 35 minutes - Physical Exam Results Vital Signs: Vital Signs Temperature 97.5 F L 12/08/19 06:33 Pulse Rate 92 H 12/08/19 09:35 Respiratory Rate 20 12/08/19 09:35 Blood Pressure 96/70 12/08/19 09:35 O2 Sat by Pulse Oximetry (%) 100 12/08/19 06:33 Pertinent Admission Physical Exam Findings: alcohol and opiate withdrawal Vital Signs - 24 hr 12/07/19 12/07/19 12/07/19 12:47 16:49 21:00 Temperature 96.8 F L 98.2 F 97.7 F Pulse Rate 86 56 L 55 L Respiratory 16 17 16 Rate Blood Pressure 113/76 112/78 113/79 O2 Sat by Pulse 97 98 Oximetry (%) 12/08/19 12/08/19 06:33 09:35 Temperature 97.5 F L Pulse Rate 55 L 92 H Respiratory 18 20 Rate Blood Pressure 105/68 96/70 O2 Sat by Pulse 100 Oximetry (%) Laboratory Tests 12/03/19 12/04/19 12/04/19 22:47 07:50 07:50 WBC 7.2 RBC 4.05 Hgb 12.2 Hct 35.7 MCV 88.2 MCH 30.2 MCHC 34.3 RDW 14.5 Plt Count 243 D MPV 8.5 Sodium Potassium Chloride Carbon Dioxide Anion Gap BUN Creatinine Est GFR (CKD-EPI)AfAm Est GFR (CKD-EPI)NonAf Random Glucose Calcium Total Bilirubin AST ALT Alkaline Phosphatase Total Protein Albumin POC Urine HCG, Qual Negative Syphilis Serology Non-reactive COVID-19 ([facility]) 12/04/19 12/04/19 07:50 09:35 WBC RBC Hgb Hct MCV MCH MCHC RDW Plt Count MPV Sodium 141 Potassium 3.6 Chloride 103 Carbon Dioxide 34 H Anion Gap 3 L BUN 9.8 Creatinine 1.0 Est GFR (CKD-EPI)AfAm 75.01 Est GFR (CKD-EPI)NonAf 64.72 Random Glucose 59 L Calcium 9.2 Total Bilirubin 1.2 H AST 26 ALT 16 Alkaline Phosphatase 75 Total Protein 7.7 Albumin 3.7 POC Urine HCG, Qual Syphilis Serology COVID-19 ([facility]) Not detected lab noted - Treatment Hospital Course: Detox Protocol Followed, Detoxed Safely, Responded well, Discharged Condition Good, Rehab Referral Accepted Patient has Accepted a Rehab Referral to: [facility] team - Medication Discharge Medications: Ambulatory Orders Benztropine Mesylate 1 tab PO BID 05/17/19 Haloperidol Decanoate [Haloperidol Decanoate 100] 1.5 ml IM MONTHLY 05/17/19 Acetaminophen [Tylenol .Regular Strength -] 2 tab PO Q8H PRN #60 tablet 06/24/19 Albuterol Sulfate Inhaler - [Ventolin HFA Inhaler -] 1 - 2 inh PO Q6H PRN #1 inhaler 09/17/19 Cetirizine HCl [Zyrtec -] 10 mg PO DAILY PRN #30 tablet 10/06/19 Elviteg/Cob/Emtri/Tenof Alafen [Genvoya Tablet] 1 each PO DAILY #30 tablet 10/06/19 Fluticasone Propionate [Allergy Relief] 1 - 2 sprays NS DAILY #1 spray.susp 10/06/19 Hydrochlorothiazide [Hctz -] 12.5 mg PO DAILY #30 cap 10/06/19 Amlodipine Besylate [Norvasc -] 5 mg PO DAILY 11/14/19 Naloxone HCl [Narcan] 4 mg NS ASDIR PRN #1 spray 12/07/19 - Diagnosis (1) Alcohol dependence with withdrawal, uncomplicated Current Visit: Yes Status: Acute (2) Opioid dependence with withdrawal Current Visit: Yes Status: Acute (3) Asthma Current Visit: Yes Status: Chronic Qualifiers: Asthma severity: mild Asthma persistence: intermittent Asthma complication type: with status asthmaticus Qualified Code(s): J45.22 - Mild intermittent asthma with status asthmaticus (4) GERD (gastroesophageal reflux disease) Current Visit: Yes Status: Chronic Qualifiers: Esophagitis presence: without esophagitis Qualified Code(s): K21.9 - Gastro-esophageal reflux disease without esophagitis (5) HIV (human immunodeficiency virus infection) Current Visit: Yes Status: Chronic Qualifiers: HIV symptom status: asymptomatic Qualified Code(s): Z21 - Asymptomatic human immunodeficiency virus [HIV] infection status (6) Hypertension Current Visit: Yes Status: Chronic Qualifiers: Hypertension type: essential hypertension Qualified Code(s): I10 - Essential (primary) hypertension (7) Nicotine dependence Current Visit: Yes Status: Acute Qualifiers: Nicotine product type: cigarettes Substance use status: in withdrawal Qualified Code(s): F17.213 - Nicotine dependence, cigarettes, with withdrawal (8) Schizoaffective disorder Current Visit: Yes Status: Suspected Qualifiers: Schizoaffective disorder type: unspecified Qualified Code(s): F25.9 - Schizoaffective disorder, unspecified - AMA Did Patient Leave Against Medical Advice: No CIWA Score - CIWA Score Nausea/Vomitin-Mild Nausea/No Vomiting Muscle Tremors: 1-None Visible, but [place] Anxiety: 0-No Anxiety, at Ease Agitation: 0-Normal Activity Paroxysmal Sweats: No Perspiration Orientation: 0-Oriented Tacttile Disturbances: 0-None Auditory Disturbances: 0-None Visual Disturbances: 0-None Headache: 0-None Present CIWA-Ar Total Score: 2 COWS (PN) - Opiate Withdrawal Resting Pulse: 1= [place] 81-100 Sweatin= No chills or Flushing Restless Observation: 0= Sits Still Pupil Size: 0= Normal to Room Light Bone or Joint Aches: 0= None Runny Nose/ Eye Tearin= None GI Upset > 30mins: 0= None Tremor Observation of Outstretched Hands: 1= Tremor [place], Not Seen Yawning Observation: 0= None Anxiety or Irritability: 0= None Goose Flesh Skin: 0=Smooth Skin COWS Score: 2
== END 2019-12-08 08:44 | disposition home or self-care (01) | DRG 773 ==
LOC: YASAS 21:55 → Y3N 23:21
PROVIDERS: ADMIT Allergy & Immunology; ATTEND Allergy & Immunology
PROC: HZ2ZZZZ Detoxification Services for Substance Abuse Treatment (ICD-10-PCS; principal; 2019-12-03)
DX: F11.23 Opioid dependence with withdrawal (principal); F10.230 Alcohol dependence with withdrawal, uncomplicated; F14.20 Cocaine dependence, uncomplicated; F17.210 Nicotine dependence, cigarettes, uncomplicated; F25.9 Schizoaffective disorder, unspecified; Z21 Asymptomatic human immunodeficiency virus [HIV] infection status; I10 Essential (primary) hypertension; J45.20 Mild intermittent asthma, uncomplicated; K21.9 Gastro-esophageal reflux disease without esophagitis; R73.03 Prediabetes; B19.10 Unspecified viral hepatitis B without hepatic coma; I25.2 Old myocardial infarction; Z85.41 Personal history of malignant neoplasm of cervix uteri; Z88.2 Allergy status to sulfonamides
CPT/HCPCS: 36415; 80053; 81025; 85027; 86780; Q0162; U0003

== ENCOUNTER 2020-05-29 13:38 | Emergency (ER) | payer OTHER ==
[2020-05-29 13:48] VITALS: BP 123/80; PULSE 99; TEMP 98.4; BMI 20.1
[2020-05-29] MEDS ORDERED: RABIES VACCINE (PCEC)/PF 2.5 UNIT/VIAL IM ONE ×2 (14:34→14:39)
[2020-05-29] MEDS ORDERED: RABIES IMMUNE GLOBULIN 300 UNITS/1 ML VIAL IM ONE (14:35)
== END 2020-05-29 15:39 | disposition home or self-care (01) ==
LOC: JERFT 13:38
PROC: 3E0234Z Introduction of Serum, Toxoid and Vaccine into Muscle, Percutaneous Approach (ICD-10-PCS; principal; 2020-05-29)
DX: S81.852A Open bite, left lower leg, initial encounter (principal); B20 Human immunodeficiency virus [HIV] disease; Z29.14 Encounter for prophylactic rabies immune globulin
CPT/HCPCS: 90375; 90675; 99284-25

== ENCOUNTER 2020-06-01 12:32 | Emergency (ER) | payer OTHER ==
[2020-06-01 13:02] VITALS: BP 116/64; PULSE 69; TEMP 98; BMI 20.1
[2020-06-01] MEDS ORDERED: RABIES VACCINE (PCEC)/PF 2.5 UNIT/VIAL IM ONE ×2 (13:41→13:54)
== END 2020-06-01 14:01 | disposition home or self-care (01) ==
LOC: JER 12:32
PROC: 3E0234Z Introduction of Serum, Toxoid and Vaccine into Muscle, Percutaneous Approach (ICD-10-PCS; principal; 2020-06-01)
DX: Z29.14 Encounter for prophylactic rabies immune globulin (principal)
CPT/HCPCS: 90675; 99284-25

== ENCOUNTER 2020-06-12 18:15 | Emergency (ER) | payer OTHER ==
[2020-06-12 18:37] VITALS: BP 118/79; PULSE 88; TEMP 97.2; BMI 20.1
[2020-06-12] MEDS ORDERED: RABIES VACCINE (PCEC)/PF 2.5 UNIT/VIAL IM ONE ×2 (18:42→19:15)
== END 2020-06-12 19:03 | disposition home or self-care (01) ==
LOC: JERFT 18:15
PROC: 3E0234Z Introduction of Serum, Toxoid and Vaccine into Muscle, Percutaneous Approach (ICD-10-PCS; principal; 2020-06-12)
DX: Z20.3 Contact with and (suspected) exposure to rabies (principal)
CPT/HCPCS: 99283-25

== ENCOUNTER 2020-06-20 16:30 | Emergency (ER) | payer OTHER ==
[2020-06-20 16:37] VITALS: BP 128/83; PULSE 79; TEMP 98.6; BMI 20.1
[2020-06-20] MEDS ORDERED: RABIES VACCINE (PCEC)/PF 2.5 UNIT/VIAL IM ONE ×2 (16:45→17:06)
== END 2020-06-20 17:13 | disposition home or self-care (01) ==
LOC: JERFT 16:30
PROC: 3E0234Z Introduction of Serum, Toxoid and Vaccine into Muscle, Percutaneous Approach (ICD-10-PCS; principal; 2020-06-20)
DX: Z29.14 Encounter for prophylactic rabies immune globulin (principal)
CPT/HCPCS: 90675; 99284-25

== ENCOUNTER 2020-08-29 10:12 | Inpatient (IN) | payer OTHER ==
[2020-08-29 11:25] VITALS: BMI 20.2
[2020-08-29] MEDS ORDERED: ALBUTEROL SO4 HFA INHALER IH PRN (15:36)
[2020-08-29] MEDS ORDERED: ACETAMINOPHEN 325 MG TABLET (FP) PO PRN (15:37)
[2020-08-29] MEDS ORDERED: IBUPROFEN 400 MG TABLET (FP) PO PRN (15:37)
[2020-08-29] MEDS ORDERED: NICOTINE POLACRILEX 2 MG GUM BC PRN (15:37)
[2020-08-29] MEDS ORDERED: MAGNESIUM CITRATE 300 ML BOTTLE PO PRN (15:37)
[2020-08-29] MEDS ORDERED: MAGNESIUM HYDROX 2400MG/30ML ORAL SUSPENSION 30 ML CUP PO PRN (15:37)
[2020-08-29] MEDS ORDERED: MAG HYDROX/AL HYDROX/SIMETH 30 ML UNIT-DOSE CUP PO PRN (15:37)
[2020-08-29] MEDS ORDERED: P-EPHED 60MG/TRIPROLIDI 2.5MG TABLET PO PRN (15:37)
[2020-08-29] MEDS ORDERED: guaiFENesin 200 MG/10 ML 10 ML UNIT-DOSE CUPS PO PRN (15:37)
[2020-08-29] MEDS ORDERED: LOPERAMIDE HCL 2 MG CAPSULE PO PRN (15:37)
[2020-08-29] MEDS ORDERED: NICOTINE 7 MG/24 HOURS TOPICAL PATCH TD SCH (15:45)
[2020-08-29] MEDS: hydrOXYzine PAMOATE 25 MG CAPSULE (FP) PO SCH ×2 (18:15→22:47)
[2020-08-29] MEDS: NICOTINE 14 MG/24 HOURS TOPICAL PATCH TD SCH (18:15)
[2020-08-29] MEDS: BENZTROPINE MESYLATE 1 MG TABLET PO SCH (22:47)
[2020-08-29] MEDS: MELATONIN 5 MG TABLETS PO SCH (22:47)
[2020-08-29] MEDS: THIAMINE HCL 100 MG TABLET (FP) PO SCH (22:47)
[2020-08-30] MEDS: hydrOXYzine PAMOATE 25 MG CAPSULE (FP) PO SCH ×5 (06:48→21:15)
[2020-08-30 10:00] LABS: BLOOD UREA NITROGEN 9.7 mg/dL (7-18)
[2020-08-30 10:03] LABS: ALBUMIN 3.1 g/dl (3.4-5.0); CREATININE 0.9 mg/dL (0.55-1.3)
[2020-08-30 10:05] LABS: BILIRUBIN,TOTAL 0.3 mg/dL (0.2-1)
[2020-08-30 10:07] LABS: TOT PROT 7.4 g/dl (6.4-8.2)
[2020-08-30 10:18] LABS: HEMATOCRIT 36.4 % (32.4-45.2); HEMOGLOBIN 12.3 GM/dL (10.7-15.3); MCH 28.5 pg (25.7-33.7); MCHC 33.7 g/dl (32.0-36.0); MEAN CELL VOLUME 84.6 fl (80-96); MEAN PLT VOLUME 8.3 fl (7.5-11.1); PLATELET COUNT 242 K/MM3 (134-434); RDW 13.6 % (11.6-15.6); WHITE BLOOD COUNT 2.7 K/mm3 (4.0-10.0)
[2020-08-30] MEDS: PRENATAL VITAMINS W/ FOLIC ACID TABLET (FP) PO SCH (11:50)
[2020-08-30] MEDS: ELVITEG/COB/EMTRI/TENOF (GENVOYA) TABLET (NF) PO SCH (11:50)
[2020-08-30] MEDS: BENZTROPINE MESYLATE 1 MG TABLET PO SCH ×2 (11:50→21:15)
[2020-08-30] MEDS: HYDROCHLOROTHIAZIDE 12.5 MG CAPSULE (FP) PO SCH (11:50)
[2020-08-30] MEDS: NICOTINE 14 MG/24 HOURS TOPICAL PATCH TD SCH (11:51)
[2020-08-30] MEDS: THIAMINE HCL 100 MG TABLET (FP) PO SCH (21:15)
[2020-08-30] MEDS: MELATONIN 5 MG TABLETS PO SCH (21:15)
[2020-08-31] MEDS: hydrOXYzine PAMOATE 25 MG CAPSULE (FP) PO SCH ×3 (06:52→13:07)
[2020-08-31 07:08] VITALS: TEMP 98.2
[2020-08-31] MEDS: PRENATAL VITAMINS W/ FOLIC ACID TABLET (FP) PO SCH (10:38)
[2020-08-31] MEDS: ELVITEG/COB/EMTRI/TENOF (GENVOYA) TABLET (NF) PO SCH (10:38)
[2020-08-31] MEDS: HYDROCHLOROTHIAZIDE 12.5 MG CAPSULE (FP) PO SCH (10:38)
[2020-08-31] MEDS: NICOTINE 14 MG/24 HOURS TOPICAL PATCH TD SCH (10:38)
[2020-08-31] MEDS ORDERED: PT OWN MED DRAWER 7, Y5N ONE (10:48)
[2020-08-31] MEDS: BENZTROPINE MESYLATE 1 MG TABLET PO SCH ×2 (11:34→21:13)
[2020-08-31 11:35] VITALS: BP 135/80; PULSE 72
[2020-08-31] MEDS ORDERED: hydrOXYzine PAMOATE 25 MG CAPSULE (FP) PO PRN (15:33)
[2020-08-31] MEDS: MELATONIN 5 MG TABLETS PO SCH (21:13)
[2020-08-31] MEDS: THIAMINE HCL 100 MG TABLET (FP) PO SCH (21:13)
[2020-09-01] MEDS: BENZTROPINE MESYLATE 1 MG TABLET PO SCH (10:32)
[2020-09-01] MEDS: HYDROCHLOROTHIAZIDE 12.5 MG CAPSULE (FP) PO SCH (10:33)
[2020-09-01] MEDS: ELVITEG/COB/EMTRI/TENOF (GENVOYA) TABLET (NF) PO SCH (10:33)
[2020-09-01] MEDS: NICOTINE 14 MG/24 HOURS TOPICAL PATCH TD SCH (10:34)
[2020-09-01] MEDS: PRENATAL VITAMINS W/ FOLIC ACID TABLET (FP) PO SCH (10:34)
[2020-09-02 06:08] LABS: SARS-CoV-2 NAA Not Detected (Not Detected)
== END 2020-09-01 12:32 | disposition home or self-care (01) | DRG 772 ==
LOC: YASAS 10:12 → Y5N 15:04
PROVIDERS: ADMIT Allergy & Immunology; ATTEND Allergy & Immunology
PROC: HZ42ZZZ Group Counseling for Substance Abuse Treatment, Cognitive-Behavioral (ICD-10-PCS; principal; 2020-08-29)
DX: F11.10 Opioid abuse, uncomplicated (principal); F10.10 Alcohol abuse, uncomplicated; F14.20 Cocaine dependence, uncomplicated; F17.210 Nicotine dependence, cigarettes, uncomplicated; F25.9 Schizoaffective disorder, unspecified; Z21 Asymptomatic human immunodeficiency virus [HIV] infection status; B19.10 Unspecified viral hepatitis B without hepatic coma; G40.89 Other seizures; I10 Essential (primary) hypertension; J45.909 Unspecified asthma, uncomplicated; K21.9 Gastro-esophageal reflux disease without esophagitis; Z85.41 Personal history of malignant neoplasm of cervix uteri; Z88.2 Allergy status to sulfonamides; Z59.0 Homelessness
CPT/HCPCS: 36415; 80053; 81025; 85027; 86780; C9803; U0003; U0005

== ENCOUNTER 2020-10-06 09:52 | Inpatient (IN) | payer OTHER ==
[2020-10-06 11:13] VITALS: BMI 21.2
[2020-10-06] MEDS ORDERED: ALBUTEROL SO4 HFA INHALER IH PRN (13:26)
[2020-10-06] MEDS ORDERED: IBUPROFEN 400 MG TABLET (FP) PO PRN (13:27)
[2020-10-06] MEDS ORDERED: MENTHOL/PHENOL 1 EACH UD MM PRN (13:27)
[2020-10-06] MEDS ORDERED: MAGNESIUM CITRATE 300 ML BOTTLE PO PRN (13:27)
[2020-10-06] MEDS ORDERED: METHOCARBAMOL 500 MG TABLET PO PRN (13:27)
[2020-10-06] MEDS ORDERED: LORazepam 1 MG TABLET PO PRN (13:27)
[2020-10-06] MEDS ORDERED: MAGNESIUM HYDROX 2400MG/30ML ORAL SUSPENSION 30 ML CUP PO PRN (13:27)
[2020-10-06] MEDS ORDERED: BISMUTH SUBSALICYLATE 524 MG/30 ML PO PRN (13:27)
[2020-10-06] MEDS ORDERED: ONDANSETRON *ODT* 4 MG TABLET SL PRN (13:27)
[2020-10-06] MEDS ORDERED: NICOTINE POLACRILEX 2 MG GUM BUC PRN (13:27)
[2020-10-06] MEDS ORDERED: ACETAMINOPHEN 325 MG TABLET (FP) PO PRN ×2 (13:27)
[2020-10-06] MEDS ORDERED: MAG HYDROX/AL HYDROX/SIMETH 30 ML UNIT-DOSE CUP PO PRN (13:27)
[2020-10-06] MEDS: amLODIPine BESYLATE 5 MG TABLET (FP) PO SCH (14:51)
[2020-10-06] MEDS: HYDROCHLOROTHIAZIDE 12.5 MG CAPSULE (FP) PO SCH (14:51)
[2020-10-06] MEDS: hydrOXYzine PAMOATE 25 MG CAPSULE (FP) PO SCH ×3 (14:51→22:34)
[2020-10-06] MEDS: ELVITEG/COB/EMTRI/TENOF (GENVOYA) TABLET (NF) PO SCH (14:52)
[2020-10-06] MEDS: NICOTINE 14 MG/24 HOURS TOPICAL PATCH TD SCH (14:52)
[2020-10-06] MEDS: LORazepam 2 MG TABLET PO SCH ×2 (17:58→22:34)
[2020-10-06] MEDS: MELATONIN 5 MG TABLETS PO SCH (22:34)
[2020-10-06] MEDS: THIAMINE HCL 100 MG TABLET (FP) PO SCH (22:34)
[2020-10-07] MEDS: hydrOXYzine PAMOATE 25 MG CAPSULE (FP) PO SCH ×5 (06:14→22:45)
[2020-10-07] MEDS: LORazepam 2 MG TABLET PO SCH ×4 (06:14→22:44)
[2020-10-07 10:06] LABS: HEMATOCRIT 37.6 % (32.4-45.2); HEMOGLOBIN 12.6 GM/dL (10.7-15.3); MCH 28.6 pg (25.7-33.7); MCHC 33.5 g/dl (32.0-36.0); MEAN CELL VOLUME 85.3 fl (80-96); PLATELET COUNT 287 10^3/uL (134-434); RBC 4.41 M/mm3 (3.60-5.2); RDW 14.5 % (11.6-15.6); WHITE BLOOD COUNT 2.5 K/mm3 (4.0-10.0)
[2020-10-07 10:09] LABS: CALCIUM 8.6 mg/dL (8.5-10.1)
[2020-10-07 10:10] LABS: ALBUMIN 3.1 g/dl (3.4-5.0); BLOOD UREA NITROGEN 11.9 mg/dL (7-18)
[2020-10-07 10:14] LABS: CREATININE 0.8 mg/dL (0.55-1.3)
[2020-10-07 10:15] LABS: BILIRUBIN,TOTAL 0.9 mg/dL (0.2-1); TOT PROT 7.1 g/dl (6.4-8.2)
[2020-10-07] MEDS: amLODIPine BESYLATE 5 MG TABLET (FP) PO SCH (10:29)
[2020-10-07] MEDS: HYDROCHLOROTHIAZIDE 12.5 MG CAPSULE (FP) PO SCH (10:29)
[2020-10-07] MEDS: ELVITEG/COB/EMTRI/TENOF (GENVOYA) TABLET (NF) PO SCH (10:29)
[2020-10-07] MEDS: PRENATAL VITAMINS W/ FOLIC ACID TABLET (FP) PO SCH (10:30)
[2020-10-07] MEDS: NICOTINE 14 MG/24 HOURS TOPICAL PATCH TD SCH (10:35)
[2020-10-07] MEDS: THIAMINE HCL 100 MG TABLET (FP) PO SCH (22:44)
[2020-10-07] MEDS: MELATONIN 5 MG TABLETS PO SCH (23:05)
[2020-10-08] MEDS: hydrOXYzine PAMOATE 25 MG CAPSULE (FP) PO SCH ×3 (06:12→13:19)
[2020-10-08] MEDS: LORazepam 1 MG TABLET PO SCH ×2 (06:12→10:19)
[2020-10-08] MEDS: PRENATAL VITAMINS W/ FOLIC ACID TABLET (FP) PO SCH (10:19)
[2020-10-08] MEDS: ELVITEG/COB/EMTRI/TENOF (GENVOYA) TABLET (NF) PO SCH (10:19)
[2020-10-08] MEDS: HYDROCHLOROTHIAZIDE 12.5 MG CAPSULE (FP) PO SCH (10:19)
[2020-10-08] MEDS: amLODIPine BESYLATE 5 MG TABLET (FP) PO SCH (10:19)
[2020-10-08] MEDS: NICOTINE 14 MG/24 HOURS TOPICAL PATCH TD SCH (10:20)
[2020-10-08 12:58] VITALS: BP 127/85; PULSE 73; TEMP 97
[2020-10-09] MEDS ORDERED: LORazepam 0.5 MG TABLET PO PRN
[2020-10-09] MEDS ORDERED: LORazepam 0.5 MG TABLET PO SCH (05:00)
[2020-10-10] MEDS ORDERED: LORazepam 0.5 MG TABLET PO ONE (05:00)
== END 2020-10-08 14:50 | disposition left against medical advice (07) | DRG 770 ==
LOC: YASAS 09:52 → Y6N 13:54
PROVIDERS: ADMIT Allergy & Immunology; ATTEND Allergy & Immunology
PROC: HZ2ZZZZ Detoxification Services for Substance Abuse Treatment (ICD-10-PCS; principal; 2020-10-06)
DX: F10.230 Alcohol dependence with withdrawal, uncomplicated (principal); F14.20 Cocaine dependence, uncomplicated; F16.10 Hallucinogen abuse, uncomplicated; F17.210 Nicotine dependence, cigarettes, uncomplicated; F25.9 Schizoaffective disorder, unspecified; I10 Essential (primary) hypertension; Z21 Asymptomatic human immunodeficiency virus [HIV] infection status; B18.1 Chronic viral hepatitis B without delta-agent; D72.819 Decreased white blood cell count, unspecified; Z88.1 Allergy status to other antibiotic agents; Z88.2 Allergy status to sulfonamides; Z59.0 Homelessness
CPT/HCPCS: 36415; 80053; 81025; 85027; 86780; C9803; Q0162; U0003; U0005

== ENCOUNTER 2020-11-18 09:33 | Inpatient (IN) | payer OTHER ==
[2020-11-18 09:59] VITALS: BMI 21.0
[2020-11-18] MEDS ORDERED: LORazepam 1 MG TABLET PO PRN (16:04)
[2020-11-18] MEDS ORDERED: MENTHOL/PHENOL 1 EACH UD MM PRN (16:04)
[2020-11-18] MEDS ORDERED: ONDANSETRON *ODT* 4 MG TABLET SL PRN (16:04)
[2020-11-18] MEDS ORDERED: MAGNESIUM CITRATE 300 ML BOTTLE PO PRN (16:04)
[2020-11-18] MEDS ORDERED: METHOCARBAMOL 500 MG TABLET PO PRN (16:04)
[2020-11-18] MEDS ORDERED: BISMUTH SUBSALICYLATE 524 MG/30 ML PO PRN (16:04)
[2020-11-18] MEDS ORDERED: hydrOXYzine PAMOATE 25 MG CAPSULE (FP) PO PRN (16:04)
[2020-11-18] MEDS ORDERED: ACETAMINOPHEN 325 MG TABLET (FP) PO PRN ×2 (16:04)
[2020-11-18] MEDS ORDERED: MAG HYDROX/AL HYDROX/SIMETH 30 ML UNIT-DOSE CUP PO PRN (16:04)
[2020-11-18] MEDS ORDERED: NICOTINE 10 MG CARTRIDGE (INHALER) IH PRN (16:04)
[2020-11-18] MEDS ORDERED: IBUPROFEN 400 MG TABLET (FP) PO PRN (16:04)
[2020-11-18] MEDS ORDERED: MAGNESIUM HYDROX 2400MG/30ML ORAL SUSPENSION 30 ML CUP PO PRN (16:04)
[2020-11-18] MEDS ORDERED: ALBUTEROL SO4 HFA INHALER IH PRN (16:11)
[2020-11-18] MEDS: THIAMINE HCL 100 MG TABLET (FP) PO SCH (23:40)
[2020-11-18] MEDS: MELATONIN 5 MG TABLETS PO SCH (23:40)
[2020-11-18] MEDS: LORazepam 2 MG TABLET PO SCH (23:40)
[2020-11-19] MEDS ORDERED: LORazepam 2 MG TABLET ONE (06:46)
[2020-11-19] MEDS: LORazepam 2 MG TABLET PO SCH ×4 (06:49→23:25)
[2020-11-19] MEDS: amLODIPine BESYLATE 5 MG TABLET (FP) PO SCH (12:11)
[2020-11-19] MEDS: PRENATAL VITAMINS W/ FOLIC ACID TABLET (FP) PO SCH (12:11)
[2020-11-19] MEDS: BENZTROPINE MESYLATE 1 MG TABLET PO SCH (23:25)
[2020-11-19] MEDS: THIAMINE HCL 100 MG TABLET (FP) PO SCH (23:25)
[2020-11-19] MEDS: MELATONIN 5 MG TABLETS PO SCH (23:25)
[2020-11-20] MEDS: LORazepam 1 MG TABLET PO SCH ×2 (06:14→10:36)
[2020-11-20] MEDS ORDERED: HALOPERIDOL 5 MG TABLET PO SCH (10:00)
[2020-11-20] MEDS ORDERED: HALOPERIDOL DECANOATE 100 MG/ML IM ONE (10:00)
[2020-11-20 10:20] LABS: HEMATOCRIT 39.2 % (32.4-45.2); HEMOGLOBIN 13.5 GM/dL (10.7-15.3); MCH 29.4 pg (25.7-33.7); MCHC 34.4 g/dl (32.0-36.0); MEAN CELL VOLUME 85.6 fl (80-96); MEAN PLT VOLUME 7.8 fl (7.5-11.1); PLATELET COUNT 262 10^3/uL (134-434); RBC 4.58 M/mm3 (3.60-5.2)
[2020-11-20] MEDS: amLODIPine BESYLATE 5 MG TABLET (FP) PO SCH (10:36)
[2020-11-20] MEDS: PRENATAL VITAMINS W/ FOLIC ACID TABLET (FP) PO SCH (10:36)
[2020-11-20] MEDS: BENZTROPINE MESYLATE 1 MG TABLET PO SCH (10:36)
[2020-11-20 11:27] LABS: WHITE BLOOD COUNT 1.7 K/mm3 (4.0-10.0)
[2020-11-20 12:15] VITALS: BP 119/71; PULSE 60; TEMP 98.7
[2020-11-20 12:34] LABS: BLOOD UREA NITROGEN 10.5 mg/dL (7-18)
[2020-11-20 12:35] LABS: CALCIUM 8.5 mg/dL (8.5-10.1)
[2020-11-20 12:36] LABS: ALBUMIN 3.4 g/dl (3.4-5.0)
[2020-11-20 12:40] LABS: BILIRUBIN,TOTAL 0.3 mg/dL (0.2-1)
[2020-11-20 12:41] LABS: TOT PROT 7.3 g/dl (6.4-8.2)
[2020-11-21] MEDS ORDERED: LORazepam 0.5 MG TABLET PO PRN
[2020-11-21] MEDS ORDERED: LORazepam 0.5 MG TABLET PO SCH (05:00)
[2020-11-22] MEDS ORDERED: LORazepam 0.5 MG TABLET PO ONE (05:00)
== END 2020-11-20 13:26 | disposition left against medical advice (07) | DRG 770 ==
LOC: YASAS 09:33 → Y6N 11-19 10:55
PROVIDERS: ADMIT Allergy & Immunology; ATTEND Allergy & Immunology
PROC: HZ2ZZZZ Detoxification Services for Substance Abuse Treatment (ICD-10-PCS; principal; 2020-11-19)
DX: F10.230 Alcohol dependence with withdrawal, uncomplicated (principal); F14.20 Cocaine dependence, uncomplicated; F12.20 Cannabis dependence, uncomplicated; F17.210 Nicotine dependence, cigarettes, uncomplicated; F25.9 Schizoaffective disorder, unspecified; Z21 Asymptomatic human immunodeficiency virus [HIV] infection status; B19.10 Unspecified viral hepatitis B without hepatic coma; G40.909 Epilepsy, unspecified, not intractable, without status epilepticus; I10 Essential (primary) hypertension; J45.909 Unspecified asthma, uncomplicated; R63.4 Abnormal weight loss; Z68.21 Body mass index [BMI] 21.0-21.9, adult; I25.2 Old myocardial infarction; Z88.2 Allergy status to sulfonamides
CPT/HCPCS: 36415; 80053; 85027; 86780; C9803; U0003; U0005

== ENCOUNTER 2021-01-15 09:39 | Inpatient (IN) | payer OTHER ==
[2021-01-15 10:53] VITALS: BMI 21.2
[2021-01-15] MEDS ORDERED: MAG HYDROX/AL HYDROX/SIMETH 30 ML UNIT-DOSE CUP PO PRN (13:41)
[2021-01-15] MEDS ORDERED: IBUPROFEN 400 MG TABLET (FP) PO PRN (13:41)
[2021-01-15] MEDS ORDERED: ACETAMINOPHEN 325 MG TABLET (FP) PO PRN (13:41)
[2021-01-15] MEDS ORDERED: MAGNESIUM CITRATE 300 ML BOTTLE PO PRN (13:41)
[2021-01-15] MEDS ORDERED: NICOTINE 10 MG CARTRIDGE (INHALER) IH PRN (13:41)
[2021-01-15] MEDS ORDERED: NICOTINE POLACRILEX 2 MG GUM BC PRN (13:41)
[2021-01-15] MEDS ORDERED: NICOTINE 21 MG/24 HOURS TOPICAL PATCH TD PRN (13:41)
[2021-01-15] MEDS ORDERED: guaiFENesin 200 MG/10 ML 10 ML UNIT-DOSE CUPS PO PRN (13:41)
[2021-01-15] MEDS ORDERED: LOPERAMIDE HCL 2 MG CAPSULE PO PRN (13:41)
[2021-01-15] MEDS ORDERED: MAGNESIUM HYDROX 2400MG/30ML ORAL SUSPENSION 30 ML CUP PO PRN (13:41)
[2021-01-15] MEDS ORDERED: P-EPHED 60MG/TRIPROLIDI 2.5MG TABLET PO PRN (13:41)
[2021-01-15] MEDS ORDERED: NICOTINE 7 MG/24 HOURS TOPICAL PATCH TD SCH (13:45)
[2021-01-15] MEDS: hydrOXYzine PAMOATE 25 MG CAPSULE (FP) PO SCH ×2 (14:47→18:50)
[2021-01-15] MEDS: PRENATAL VITAMINS W/ FOLIC ACID TABLET (FP) PO SCH (14:47)
[2021-01-15] MEDS: NICOTINE 14 MG/24 HOURS TOPICAL PATCH TD PRN (14:48)
[2021-01-15] MEDS ORDERED: ALBUTEROL SO4 HFA INHALER IH PRN (14:48)
[2021-01-15] MEDS ORDERED: TUBERCULIN PPD 5 TU/0.1ML VIAL ID ONE (15:31)
[2021-01-15 17:59] LABS: MCH 29.2 pg (25.7-33.7); MCHC 34.2 g/dl (32.0-36.0); MEAN CELL VOLUME 85.5 fl (80-96); MEAN PLT VOLUME 8.3 fl (7.5-11.1); PLATELET COUNT 229 10^3/uL (134-434); RBC 4.09 M/mm3 (3.60-5.2); RDW 13.3 % (11.6-15.6); WHITE BLOOD COUNT 3.2 K/mm3 (4.0-10.0)
[2021-01-15 18:04] LABS: ALBUMIN 3.1 g/dl (3.4-5.0); CALCIUM 8.7 mg/dL (8.5-10.1)
[2021-01-15 18:05] LABS: BLOOD UREA NITROGEN 12.6 mg/dL (7-18)
[2021-01-15 18:08] LABS: CREATININE 0.9 mg/dL (0.55-1.3)
[2021-01-15 18:09] LABS: BILIRUBIN,TOTAL 0.3 mg/dL (0.2-1); TOT PROT 8.1 g/dl (6.4-8.2)
[2021-01-15 18:30] LABS: SYPHILIS W/ RPR CONF NON-REACTIVE (NONREACTIVE)
[2021-01-16] MEDS: MELATONIN 5 MG TABLETS PO SCH ×2 (00:28→22:39)
[2021-01-16] MEDS: hydrOXYzine PAMOATE 25 MG CAPSULE (FP) PO SCH ×6 (00:28→22:39)
[2021-01-16] MEDS: THIAMINE HCL 100 MG TABLET (FP) PO SCH ×2 (00:28→22:39)
[2021-01-16] MEDS: amLODIPine BESYLATE 5 MG TABLET (FP) PO SCH (10:55)
[2021-01-16] MEDS: PRENATAL VITAMINS W/ FOLIC ACID TABLET (FP) PO SCH (10:55)
[2021-01-16] MEDS: HYDROCHLOROTHIAZIDE 12.5 MG CAPSULE (FP) PO SCH (10:55)
[2021-01-16] MEDS: HALOPERIDOL 5 MG TABLET PO SCH (10:57)
[2021-01-16] MEDS: BENZTROPINE MESYLATE 1 MG TABLET PO SCH ×2 (10:57→22:39)
[2021-01-16] MEDS: ELVITEG/COB/EMTRI/TENOF (GENVOYA) TABLET (NF) PO SCH (14:04)
[2021-01-17] MEDS: hydrOXYzine PAMOATE 25 MG CAPSULE (FP) PO SCH ×5 (06:32→21:28)
[2021-01-17] MEDS: HYDROCHLOROTHIAZIDE 12.5 MG CAPSULE (FP) PO SCH (09:46)
[2021-01-17] MEDS: BENZTROPINE MESYLATE 1 MG TABLET PO SCH ×2 (09:46→21:28)
[2021-01-17] MEDS: HALOPERIDOL 5 MG TABLET PO SCH (09:46)
[2021-01-17] MEDS: PRENATAL VITAMINS W/ FOLIC ACID TABLET (FP) PO SCH (09:46)
[2021-01-17] MEDS: amLODIPine BESYLATE 5 MG TABLET (FP) PO SCH (09:46)
[2021-01-17] MEDS: ELVITEG/COB/EMTRI/TENOF (GENVOYA) TABLET (NF) PO SCH (10:35)
[2021-01-17] MEDS: THIAMINE HCL 100 MG TABLET (FP) PO SCH (21:28)
[2021-01-17] MEDS: MELATONIN 5 MG TABLETS PO SCH (21:28)
[2021-01-18] MEDS: hydrOXYzine PAMOATE 25 MG CAPSULE (FP) PO SCH ×3 (06:21→14:26)
[2021-01-18 07:24] VITALS: TEMP 96.6
[2021-01-18] MEDS ORDERED: PT OWN MED DRAWER 7, Y5N ONE (09:04)
[2021-01-18] MEDS: HYDROCHLOROTHIAZIDE 12.5 MG CAPSULE (FP) PO SCH (10:44)
[2021-01-18] MEDS: amLODIPine BESYLATE 5 MG TABLET (FP) PO SCH (10:44)
[2021-01-18] MEDS: ELVITEG/COB/EMTRI/TENOF (GENVOYA) TABLET (NF) PO SCH (10:44)
[2021-01-18] MEDS: BENZTROPINE MESYLATE 1 MG TABLET PO SCH (10:44)
[2021-01-18] MEDS: PRENATAL VITAMINS W/ FOLIC ACID TABLET (FP) PO SCH (10:44)
[2021-01-18] MEDS: HALOPERIDOL 5 MG TABLET PO SCH (10:44)
[2021-01-18] MEDS: NICOTINE 14 MG/24 HOURS TOPICAL PATCH TD PRN (10:45)
[2021-01-18 12:35] VITALS: BP 126/78; PULSE 79
== END 2021-01-18 16:00 | disposition left against medical advice (07) | DRG 770 ==
LOC: YASAS 09:39 → Y5N 13:51
PROVIDERS: ADMIT Allergy & Immunology; ATTEND Allergy & Immunology
PROC: HZ42ZZZ Group Counseling for Substance Abuse Treatment, Cognitive-Behavioral (ICD-10-PCS; principal; 2021-01-15)
DX: F10.20 Alcohol dependence, uncomplicated (principal); F11.20 Opioid dependence, uncomplicated; F14.20 Cocaine dependence, uncomplicated; F17.210 Nicotine dependence, cigarettes, uncomplicated; F25.9 Schizoaffective disorder, unspecified; Z21 Asymptomatic human immunodeficiency virus [HIV] infection status; B19.10 Unspecified viral hepatitis B without hepatic coma; I10 Essential (primary) hypertension; J45.909 Unspecified asthma, uncomplicated; G40.909 Epilepsy, unspecified, not intractable, without status epilepticus; K21.9 Gastro-esophageal reflux disease without esophagitis; R63.4 Abnormal weight loss; Z68.21 Body mass index [BMI] 21.0-21.9, adult; Z85.41 Personal history of malignant neoplasm of cervix uteri; I25.2 Old myocardial infarction; Z56.0 Unemployment, unspecified; Z59.01 Sheltered homelessness
CPT/HCPCS: 36415; 80053; 81025; 85027; 86780; 86803; C9803; U0003; U0005

== ENCOUNTER 2021-04-10 14:32 | Inpatient (IN) | payer OTHER ==
[2021-04-10 15:48] VITALS: BMI 25.9
[2021-04-10] MEDS ORDERED: MAGNESIUM CITRATE 300 ML BOTTLE PO PRN (16:07)
[2021-04-10] MEDS ORDERED: guaiFENesin 200 MG/10 ML 10 ML UNIT-DOSE CUPS PO PRN (16:07)
[2021-04-10] MEDS ORDERED: LOPERAMIDE HCL 2 MG CAPSULE PO PRN (16:07)
[2021-04-10] MEDS ORDERED: MAG HYDROX/AL HYDROX/SIMETH 30 ML UNIT-DOSE CUP PO PRN (16:07)
[2021-04-10] MEDS ORDERED: ACETAMINOPHEN 325 MG TABLET (FP) PO PRN (16:07)
[2021-04-10] MEDS ORDERED: MAGNESIUM HYDROX 2400MG/30ML ORAL SUSPENSION 30 ML CUP PO PRN (16:07)
[2021-04-10] MEDS ORDERED: IBUPROFEN 400 MG TABLET (FP) PO PRN (16:07)
[2021-04-10] MEDS ORDERED: P-EPHED 60MG/TRIPROLIDI 2.5MG TABLET PO PRN (16:07)
[2021-04-10] MEDS ORDERED: ALBUTEROL SO4 HFA INHALER IH PRN (16:09)
[2021-04-10] MEDS: HYDROCHLOROTHIAZIDE 12.5 MG CAPSULE (FP) PO SCH (19:40)
[2021-04-10] MEDS: hydrOXYzine PAMOATE 25 MG CAPSULE (FP) PO SCH ×2 (19:40→21:59)
[2021-04-10] MEDS: NICOTINE 7 MG/24 HOURS TOPICAL PATCH TD SCH (19:44)
[2021-04-10] MEDS: PRENATAL VITAMINS W/ FOLIC ACID TABLET (FP) PO SCH (19:44)
[2021-04-10] MEDS ORDERED: AMMONIUM LACTATE 12% LOTION 225 GM BOTTLE TP PRN (20:20)
[2021-04-10] MEDS: THIAMINE HCL 100 MG TABLET (FP) PO SCH (21:59)
[2021-04-10] MEDS ORDERED: MELATONIN 5 MG TABLETS PO SCH (22:00)
[2021-04-11] MEDS: hydrOXYzine PAMOATE 25 MG CAPSULE (FP) PO SCH ×5 (06:22→21:41)
[2021-04-11 10:34] LABS: HEMATOCRIT 37.8 % (32.4-45.2); HEMOGLOBIN 12.4 GM/dL (10.7-15.3); MCH 28.2 pg (25.7-33.7); MCHC 32.8 g/dl (32.0-36.0); MEAN CELL VOLUME 86.1 fl (80-96); MEAN PLT VOLUME 8.5 fl (7.5-11.1); PLATELET COUNT 227 10^3/uL (134-434); RBC 4.39 M/mm3 (3.60-5.2); RDW 14.7 % (11.6-15.6); WHITE BLOOD COUNT 2.4 K/mm3 (4.0-10.0)
[2021-04-11 11:08] LABS: CALCIUM 9.1 mg/dL (8.5-10.1)
[2021-04-11 11:09] LABS: BLOOD UREA NITROGEN 18.8 mg/dL (7-18)
[2021-04-11 11:13] LABS: BILIRUBIN,TOTAL 0.6 mg/dL (0.2-1); TOT PROT 7.2 g/dl (6.4-8.2)
[2021-04-11] MEDS: HYDROCHLOROTHIAZIDE 12.5 MG CAPSULE (FP) PO SCH (12:12)
[2021-04-11] MEDS: PRENATAL VITAMINS W/ FOLIC ACID TABLET (FP) PO SCH (12:12)
[2021-04-11] MEDS: NICOTINE 7 MG/24 HOURS TOPICAL PATCH TD SCH (12:12)
[2021-04-11] MEDS: ELVITEG/COB/EMTRI/TENOF (GENVOYA) TABLET (NF) PO SCH (12:12)
[2021-04-11] MEDS: amLODIPine BESYLATE 5 MG TABLET (FP) PO SCH (12:12)
[2021-04-11 18:18] LABS: EPI CELLS >36 /uL (0-25.1); HYALINE CASTS 0 /uL (0-3.1); URINE APPEARANCE CLOUDY; URINE BACTERIA 130 /uL (0-1359); URINE BILIRUBIN NEGATIVE (NEGATIVE); URINE COLOR YELLOW; URINE GLUCOSE (UA) NEGATIVE (NEGATIVE); URINE KETONE NEGATIVE (NEGATIVE); URINE LEUK ESTERASE 2+ (NEGATIVE); URINE NITRITE NEGATIVE (NEGATIVE); URINE PROTEIN NEGATIVE (NEGATIVE); URINE RBC 6 /uL (0-23.9); URINE UROBILINOGEN 0.2 mg/dL (0.2-1.0); URINE WBC 22 /uL (0-25.8)
[2021-04-11] MEDS: BENZTROPINE MESYLATE 1 MG TABLET PO SCH (21:41)
[2021-04-11] MEDS: THIAMINE HCL 100 MG TABLET (FP) PO SCH (21:41)
[2021-04-11] MEDS: QUEtiapine FUMARATE 100 MG TABLET (FP) PO SCH (21:41)
[2021-04-12] MEDS: hydrOXYzine PAMOATE 25 MG CAPSULE (FP) PO SCH ×5 (05:41→22:01)
[2021-04-12] MEDS: ELVITEG/COB/EMTRI/TENOF (GENVOYA) TABLET (NF) PO SCH (07:26)
[2021-04-12] MEDS: NICOTINE 7 MG/24 HOURS TOPICAL PATCH TD SCH (10:21)
[2021-04-12] MEDS: amLODIPine BESYLATE 5 MG TABLET (FP) PO SCH (10:21)
[2021-04-12] MEDS: PRENATAL VITAMINS W/ FOLIC ACID TABLET (FP) PO SCH (10:21)
[2021-04-12] MEDS: HYDROCHLOROTHIAZIDE 12.5 MG CAPSULE (FP) PO SCH (10:21)
[2021-04-12] MEDS: NICOTINE 10 MG CARTRIDGE (INHALER) IH PRN (15:54)
[2021-04-12] MEDS: BENZTROPINE MESYLATE 1 MG TABLET PO SCH (22:00)
[2021-04-12] MEDS: THIAMINE HCL 100 MG TABLET (FP) PO SCH (22:00)
[2021-04-12] MEDS: QUEtiapine FUMARATE 100 MG TABLET (FP) PO SCH (22:00)
[2021-04-13] MEDS ORDERED: PT OWN MED DRAWER 7, Y5N ONE (03:06)
[2021-04-13] MEDS: hydrOXYzine PAMOATE 25 MG CAPSULE (FP) PO SCH ×4 (07:16→20:16)
[2021-04-13] MEDS: ELVITEG/COB/EMTRI/TENOF (GENVOYA) TABLET (NF) PO SCH (07:24)
[2021-04-13] MEDS: HYDROCHLOROTHIAZIDE 12.5 MG CAPSULE (FP) PO SCH (10:34)
[2021-04-13] MEDS: PRENATAL VITAMINS W/ FOLIC ACID TABLET (FP) PO SCH (10:34)
[2021-04-13] MEDS: amLODIPine BESYLATE 5 MG TABLET (FP) PO SCH (10:34)
[2021-04-13] MEDS: NICOTINE 7 MG/24 HOURS TOPICAL PATCH TD SCH (10:35)
[2021-04-13] MEDS: NICOTINE 10 MG CARTRIDGE (INHALER) IH PRN (10:35)
[2021-04-14] MEDS: BENZTROPINE MESYLATE 1 MG TABLET PO SCH
[2021-04-14] MEDS: QUEtiapine FUMARATE 100 MG TABLET (FP) PO SCH
[2021-04-14] MEDS: hydrOXYzine PAMOATE 25 MG CAPSULE (FP) PO SCH ×4 (00:01→15:48)
[2021-04-14] MEDS: THIAMINE HCL 100 MG TABLET (FP) PO SCH (00:01)
[2021-04-14 07:46] VITALS: BP 115/84; PULSE 69; TEMP 97.5
[2021-04-14] MEDS: ELVITEG/COB/EMTRI/TENOF (GENVOYA) TABLET (NF) PO SCH (07:59)
[2021-04-14] MEDS: NICOTINE 10 MG CARTRIDGE (INHALER) IH PRN (08:48)
[2021-04-14] MEDS: amLODIPine BESYLATE 5 MG TABLET (FP) PO SCH (10:41)
[2021-04-14] MEDS: NICOTINE 7 MG/24 HOURS TOPICAL PATCH TD SCH (10:41)
[2021-04-14] MEDS: PRENATAL VITAMINS W/ FOLIC ACID TABLET (FP) PO SCH (10:41)
[2021-04-14] MEDS: HYDROCHLOROTHIAZIDE 12.5 MG CAPSULE (FP) PO SCH (10:41)
[2021-04-14 14:39] LABS: SYPHILIS W/ RPR CONF NON-REACTIVE (NONREACTIVE)
[2021-04-17] MEDS ORDERED: HALOPERIDOL DECANOATE 500 MG/5ML MDV IM ONE (09:00)
== END 2021-04-14 16:13 | disposition home or self-care (01) | DRG 772 ==
LOC: YASAS 14:32 → Y5N 18:22
PROVIDERS: ADMIT Allergy & Immunology; ATTEND Allergy & Immunology
PROC: HZ42ZZZ Group Counseling for Substance Abuse Treatment, Cognitive-Behavioral (ICD-10-PCS; principal; 2021-04-10)
DX: F11.10 Opioid abuse, uncomplicated (principal); F14.20 Cocaine dependence, uncomplicated; F10.10 Alcohol abuse, uncomplicated; F17.210 Nicotine dependence, cigarettes, uncomplicated; F25.9 Schizoaffective disorder, unspecified; F31.9 Bipolar disorder, unspecified; F19.282 Other psychoactive substance dependence with psychoactive substance-induced sleep disorder; F19.259 Other psychoactive substance dependence with psychoactive substance-induced psychotic disorder, unspecified; F19.24 Other psychoactive substance dependence with psychoactive substance-induced mood disorder; Z21 Asymptomatic human immunodeficiency virus [HIV] infection status; I10 Essential (primary) hypertension; K21.9 Gastro-esophageal reflux disease without esophagitis; Z20.822 Contact with and (suspected) exposure to COVID-19; Z86.69 Personal history of other diseases of the nervous system and sense organs; Z85.41 Personal history of malignant neoplasm of cervix uteri; Z88.2 Allergy status to sulfonamides; Z59.01 Sheltered homelessness
CPT/HCPCS: 36415; 80053; 81003; 85027; 86780; 86803; 87086; 93005; 93010; C9803; U0003; U0005

== ENCOUNTER 2021-10-28 11:06 | Inpatient (IN) | payer OTHER ==
[2021-10-28 13:04] VITALS: BMI 23.3
[2021-10-28] MEDS ORDERED: MAGNESIUM HYDROX 2400MG/30ML ORAL SUSPENSION 30 ML CUP PO PRN (14:16)
[2021-10-28] MEDS ORDERED: ACETAMINOPHEN 325 MG TABLET (FP) PO PRN (14:16)
[2021-10-28] MEDS ORDERED: NICOTINE POLACRILEX 2 MG GUM BC PRN (14:16)
[2021-10-28] MEDS ORDERED: IBUPROFEN 400 MG TABLET (FP) PO PRN (14:16)
[2021-10-28] MEDS ORDERED: P-EPHED 60MG/TRIPROLIDI 2.5MG TABLET PO PRN (14:16)
[2021-10-28] MEDS ORDERED: LOPERAMIDE HCL 2 MG CAPSULE PO PRN (14:16)
[2021-10-28] MEDS ORDERED: MAG HYDROX/AL HYDROX/SIMETH 30 ML UNIT-DOSE CUP PO PRN (14:16)
[2021-10-28] MEDS ORDERED: MAGNESIUM CITRATE 300 ML BOTTLE PO PRN (14:16)
[2021-10-28] MEDS ORDERED: guaiFENesin 200 MG/10 ML 10 ML UNIT-DOSE CUPS PO PRN (14:16)
[2021-10-28] MEDS: hydrOXYzine PAMOATE 25 MG CAPSULE (FP) PO SCH ×2 (22:19→22:21)
[2021-10-28] MEDS: THIAMINE HCL 100 MG TABLET (FP) PO SCH (22:19)
[2021-10-28] MEDS: MELATONIN 5 MG TABLETS PO SCH (22:20)
[2021-10-28 22:57] VITALS: RESP 18
[2021-10-29] MEDS: hydrOXYzine PAMOATE 25 MG CAPSULE (FP) PO SCH ×5 (06:36→21:25)
[2021-10-29] MEDS ORDERED: ALBUTEROL SO4 HFA INHALER IH PRN (08:06)
[2021-10-29] MEDS ORDERED: PANTOPRAZOLE 20 MG TABLET PO PRN (08:06)
[2021-10-29] MEDS ORDERED: HALOPERIDOL DECANOATE 100 MG/ML IM ONE (09:33)
[2021-10-29] MEDS: NICOTINE 7 MG/24 HOURS TOPICAL PATCH TD SCH (10:22)
[2021-10-29] MEDS: PRENATAL VITAMINS W/ FOLIC ACID TABLET (FP) PO SCH (10:22)
[2021-10-29] MEDS: ASPIRIN COATED 81 MG TABLET.EC PO SCH (10:22)
[2021-10-29 10:43] LABS: HEMATOCRIT 37.6 % (32.4-45.2); HEMOGLOBIN 12.6 GM/dL (10.7-15.3); MCH 28.9 pg (25.7-33.7); MCHC 33.6 g/dl (32.0-36.0); MEAN CELL VOLUME 85.8 fl (80-96); MEAN PLT VOLUME 8.9 fl (7.5-11.1); PLATELET COUNT 239 10^3/uL (134-434); RBC 4.38 M/mm3 (3.60-5.2); RDW 14.6 % (11.6-15.6)
[2021-10-29 10:59] LABS: BLOOD UREA NITROGEN 9.5 mg/dL (7-18); CALCIUM 8.7 mg/dL (8.5-10.1)
[2021-10-29 11:00] LABS: ALBUMIN 3.2 g/dl (3.4-5.0)
[2021-10-29 11:03] LABS: CREATININE 0.9 mg/dL (0.55-1.3)
[2021-10-29 11:04] LABS: BILIRUBIN,TOTAL 0.4 mg/dL (0.2-1); TOT PROT 6.7 g/dl (6.4-8.2)
[2021-10-29] MEDS: BENZTROPINE MESYLATE 1 MG TABLET PO SCH ×2 (14:45→21:25)
[2021-10-29] MEDS: MELATONIN 5 MG TABLETS PO SCH (21:25)
[2021-10-29] MEDS: THIAMINE HCL 100 MG TABLET (FP) PO SCH (21:25)
[2021-10-29] MEDS ORDERED: ATORVASTATIN CA 10 MG TABLET (FP) PO SCH (22:00)
[2021-10-30] MEDS: hydrOXYzine PAMOATE 25 MG CAPSULE (FP) PO SCH ×3 (06:38→14:02)
[2021-10-30 07:26] VITALS: BP 110/74; PULSE 58; TEMP 98.7
[2021-10-30] MEDS: PRENATAL VITAMINS W/ FOLIC ACID TABLET (FP) PO SCH (10:25)
[2021-10-30] MEDS: NICOTINE 7 MG/24 HOURS TOPICAL PATCH TD SCH (10:25)
[2021-10-30] MEDS: BENZTROPINE MESYLATE 1 MG TABLET PO SCH (10:26)
[2021-10-30] MEDS: ASPIRIN COATED 81 MG TABLET.EC PO SCH (10:26)
== END 2021-10-30 17:06 | disposition left against medical advice (07) | DRG 770 ==
LOC: YASAS 11:06 → UNDOADMIN 16:33 → Y6N 16:33 → Y5N 16:51
PROVIDERS: ADMIT Allergy & Immunology; ATTEND Psychiatry & Neurology Pain Medicine
PROC: HZ42ZZZ Group Counseling for Substance Abuse Treatment, Cognitive-Behavioral (ICD-10-PCS; principal; 2021-10-28)
DX: F10.20 Alcohol dependence, uncomplicated (principal); F14.20 Cocaine dependence, uncomplicated; F17.210 Nicotine dependence, cigarettes, uncomplicated; F25.9 Schizoaffective disorder, unspecified; F31.9 Bipolar disorder, unspecified; Z21 Asymptomatic human immunodeficiency virus [HIV] infection status; I10 Essential (primary) hypertension; E78.5 Hyperlipidemia, unspecified; B19.10 Unspecified viral hepatitis B without hepatic coma; J45.909 Unspecified asthma, uncomplicated; R73.03 Prediabetes; Z62.810 Personal history of physical and sexual abuse in childhood; Z91.410 Personal history of adult physical and sexual abuse; Z87.42 Personal history of other diseases of the female genital tract
CPT/HCPCS: 36415; 80053; 85027; 86780; 87811; C9803-CS; U0003; U0005

== ENCOUNTER 2022-11-10 12:45 | Inpatient (IN) | payer OTHER ==
[2022-11-10 13:38] VITALS: BMI 16.4
[2022-11-10] MEDS ORDERED: MAG HYDROX/AL HYDROX/SIMETH 30 ML UNIT-DOSE CUP PO PRN (17:45)
[2022-11-10] MEDS ORDERED: NALOXONE HCL 0.4 MG/ML VIAL IM PRN (17:45)
[2022-11-10] MEDS ORDERED: hydrOXYzine PAMOATE 25 MG CAPSULE (FP) PO PRN (17:45)
[2022-11-10] MEDS ORDERED: BISMUTH SUBSALICYLATE 524 MG/30 ML PO PRN (17:45)
[2022-11-10] MEDS ORDERED: POLYETHYLENE GLYCOL (HEALTHYLAX) 3350 17 GM PACKET PO PRN (17:45)
[2022-11-10] MEDS ORDERED: IBUPROFEN 400 MG TABLET (FP) PO PRN (17:45)
[2022-11-10] MEDS ORDERED: IBUPROFEN 600 MG TABLET (FP) PO PRN (17:45)
[2022-11-10] MEDS ORDERED: guaiFENesin 600 MG TABLET.ER (FP) PO PRN (17:45)
[2022-11-10] MEDS ORDERED: NALOXONE HCL (KLOXXADO) 8 MG SPRAY NS PRN (17:45)
[2022-11-10] MEDS ORDERED: DICYCLOMINE HCL 10 MG CAPSULE PO PRN (17:45)
[2022-11-10] MEDS ORDERED: ACETAMINOPHEN 325 MG TABLET (FP) PO PRN (17:45)
[2022-11-10] MEDS ORDERED: NICOTINE POLACRILEX 2 MG GUM BUC PRN (17:45)
[2022-11-10] MEDS ORDERED: ONDANSETRON *ODT* 4 MG TABLET SL PRN (17:45)
[2022-11-10] MEDS ORDERED: LOPERAMIDE HCL 2 MG CAPSULE PO PRN (17:45)
[2022-11-10] MEDS ORDERED: BENZOCAINE/MENTHOL (CHLORASEPTIC ) LOZENGE MM PRN (17:45)
[2022-11-10] MEDS ORDERED: MAGNESIUM HYDROX 2400MG/30ML ORAL SUSPENSION 30 ML CUP PO PRN (17:45)
[2022-11-10] MEDS ORDERED: BENZONATATE 200 MG CAPSULE PO PRN (17:45)
[2022-11-10] MEDS: METHOCARBAMOL 500 MG TABLET PO PRN (18:31)
[2022-11-10] MEDS ORDERED: ALBUTEROL SO4 HFA INHALER IH PRN (18:32)
[2022-11-10] MEDS: MELATONIN 5 MG TABLETS PO SCH (22:20)
[2022-11-10] MEDS: THIAMINE HCL 100 MG TABLET (FP) PO SCH (22:20)
[2022-11-11] MEDS: ASPIRIN COATED 81 MG TABLET.EC PO SCH (09:24)
[2022-11-11] MEDS: amLODIPine BESYLATE 5 MG TABLET (FP) PO SCH (09:24)
[2022-11-11] MEDS: BICTEGRAV/EMTRICIT/TENOFOV (BIKTARVY) 50-200-25 MG TABLET PO SCH (09:24)
[2022-11-11] MEDS: PRENATAL VITAMINS W/ FOLIC ACID TABLET (FP) PO SCH (09:25)
[2022-11-11] MEDS ORDERED: HALOPERIDOL DECANOATE 100 MG/ML IM ONE (10:04)
[2022-11-11] MEDS ORDERED: diazePAM 5 MG TABLET PO PRN (10:20)
[2022-11-11] MEDS: BENZTROPINE MESYLATE 1 MG TABLET PO SCH ×2 (10:45→22:14)
[2022-11-11] MEDS: diazePAM 5 MG TABLET PO SCH ×3 (10:45→22:14)
[2022-11-11 11:08] LABS: HEMATOCRIT 36.4 % (32.4-45.2); HEMOGLOBIN 12.3 GM/dL (10.7-15.3); MCH 28.2 pg (25.7-33.7); MCHC 33.8 g/dl (32.0-36.0); MEAN CELL VOLUME 83.4 fl (80-96); PLATELET COUNT 245 10^3/uL (134-434); RBC 4.36 M/mm3 (3.60-5.2); RDW 13.7 % (11.6-15.6)
[2022-11-11 11:14] LABS: POTASSIUM 4.5 mmol/L (3.5-5.1)
[2022-11-11 11:24] LABS: BLOOD UREA NITROGEN 12.6 mg/dL (7-18); CALCIUM 8.6 mg/dL (8.5-10.1); CREATININE 0.9 mg/dL (0.55-1.3)
[2022-11-11 11:26] LABS: ALBUMIN 2.9 g/dl (3.4-5.0); BILIRUBIN,TOTAL 0.2 mg/dL (0.2-1); TOT PROT 6.6 g/dl (6.4-8.2)
[2022-11-11] MEDS ORDERED: cloNIDine HCL 0.1 MG TABLET PO PRN (15:30)
[2022-11-11] MEDS: THIAMINE HCL 100 MG TABLET (FP) PO SCH (22:14)
[2022-11-11] MEDS: MELATONIN 5 MG TABLETS PO SCH (22:14)
[2022-11-12] MEDS: diazePAM 5 MG TABLET PO SCH ×4 (05:48→22:11)
[2022-11-12] MEDS: BICTEGRAV/EMTRICIT/TENOFOV (BIKTARVY) 50-200-25 MG TABLET PO SCH (10:07)
[2022-11-12] MEDS: ASPIRIN COATED 81 MG TABLET.EC PO SCH (10:07)
[2022-11-12] MEDS: BENZTROPINE MESYLATE 1 MG TABLET PO SCH ×2 (10:07→22:10)
[2022-11-12] MEDS: amLODIPine BESYLATE 5 MG TABLET (FP) PO SCH (10:09)
[2022-11-12] MEDS: PRENATAL VITAMINS W/ FOLIC ACID TABLET (FP) PO SCH (10:09)
[2022-11-12] MEDS: MELATONIN 5 MG TABLETS PO SCH (22:10)
[2022-11-12] MEDS: THIAMINE HCL 100 MG TABLET (FP) PO SCH (22:11)
[2022-11-13] MEDS: diazePAM 5 MG TABLET PO SCH ×3 (06:04→22:31)
[2022-11-13] MEDS: BENZTROPINE MESYLATE 1 MG TABLET PO SCH ×2 (10:20→22:31)
[2022-11-13] MEDS: PRENATAL VITAMINS W/ FOLIC ACID TABLET (FP) PO SCH (10:20)
[2022-11-13] MEDS: amLODIPine BESYLATE 5 MG TABLET (FP) PO SCH (10:20)
[2022-11-13] MEDS: BICTEGRAV/EMTRICIT/TENOFOV (BIKTARVY) 50-200-25 MG TABLET PO SCH (10:20)
[2022-11-13] MEDS: ASPIRIN COATED 81 MG TABLET.EC PO SCH (10:20)
[2022-11-13] MEDS: THIAMINE HCL 100 MG TABLET (FP) PO SCH (22:31)
[2022-11-13] MEDS: MELATONIN 5 MG TABLETS PO SCH (22:31)
[2022-11-14] MEDS: diazePAM 5 MG TABLET PO SCH ×2 (05:38→17:39)
[2022-11-14] MEDS: BENZTROPINE MESYLATE 1 MG TABLET PO SCH ×2 (10:33→22:10)
[2022-11-14] MEDS: amLODIPine BESYLATE 5 MG TABLET (FP) PO SCH (10:33)
[2022-11-14] MEDS: ASPIRIN COATED 81 MG TABLET.EC PO SCH (10:33)
[2022-11-14] MEDS: PRENATAL VITAMINS W/ FOLIC ACID TABLET (FP) PO SCH (10:33)
[2022-11-14] MEDS: BICTEGRAV/EMTRICIT/TENOFOV (BIKTARVY) 50-200-25 MG TABLET PO SCH (10:33)
[2022-11-14 17:19] VITALS: RESP 18
[2022-11-14] MEDS: MELATONIN 5 MG TABLETS PO SCH (22:09)
[2022-11-14] MEDS: METHOCARBAMOL 500 MG TABLET PO PRN (22:10)
[2022-11-14] MEDS: THIAMINE HCL 100 MG TABLET (FP) PO SCH (22:10)
[2022-11-15] MEDS ORDERED: diazePAM 5 MG TABLET PO ONE (06:00)
[2022-11-15 09:02] VITALS: BP 123/87; PULSE 73; TEMP 97.6
[2022-11-15] MEDS: PRENATAL VITAMINS W/ FOLIC ACID TABLET (FP) PO SCH (09:44)
[2022-11-15] MEDS: amLODIPine BESYLATE 5 MG TABLET (FP) PO SCH (09:44)
[2022-11-15] MEDS: ASPIRIN COATED 81 MG TABLET.EC PO SCH (09:44)
[2022-11-15] MEDS: BICTEGRAV/EMTRICIT/TENOFOV (BIKTARVY) 50-200-25 MG TABLET PO SCH (09:44)
[2022-11-15] MEDS: BENZTROPINE MESYLATE 1 MG TABLET PO SCH (09:44)
== END 2022-11-15 12:03 | disposition home or self-care (01) | DRG 774 ==
LOC: YASAS 12:45 → Y3N 18:00
PROVIDERS: ADMIT Allergy & Immunology; ATTEND Allergy & Immunology
PROC: HZ2ZZZZ Detoxification Services for Substance Abuse Treatment (ICD-10-PCS; principal; 2022-11-10)
DX: F10.230 Alcohol dependence with withdrawal, uncomplicated (principal); F14.20 Cocaine dependence, uncomplicated; F17.210 Nicotine dependence, cigarettes, uncomplicated; F25.9 Schizoaffective disorder, unspecified; F31.9 Bipolar disorder, unspecified; Z21 Asymptomatic human immunodeficiency virus [HIV] infection status; J45.20 Mild intermittent asthma, uncomplicated; K21.9 Gastro-esophageal reflux disease without esophagitis; G40.909 Epilepsy, unspecified, not intractable, without status epilepticus; R73.03 Prediabetes; Z62.810 Personal history of physical and sexual abuse in childhood
CPT/HCPCS: 36415; 80053; 81025; 85027; 86780; 87635; 87811; 93005; 93010

== ENCOUNTER 2022-11-23 17:15 | Inpatient (IN) | payer OTHER ==
[2022-11-23 17:37] VITALS: BMI 19.2
[2022-11-23] MEDS ORDERED: LOPERAMIDE HCL 2 MG CAPSULE PO PRN (18:34)
[2022-11-23] MEDS ORDERED: guaiFENesin 600 MG TABLET.ER (FP) PO PRN (18:34)
[2022-11-23] MEDS ORDERED: hydrOXYzine PAMOATE 25 MG CAPSULE (FP) PO PRN (18:34)
[2022-11-23] MEDS ORDERED: POLYETHYLENE GLYCOL (HEALTHYLAX) 3350 17 GM PACKET PO PRN (18:34)
[2022-11-23] MEDS ORDERED: MAGNESIUM HYDROX 2400MG/30ML ORAL SUSPENSION 30 ML CUP PO PRN (18:34)
[2022-11-23] MEDS ORDERED: ACETAMINOPHEN 325 MG TABLET (FP) PO PRN (18:34)
[2022-11-23] MEDS ORDERED: COLLOIDAL OATMEAL 1 BAR EACH TP PRN (18:34)
[2022-11-23] MEDS ORDERED: BENZOCAINE/MENTHOL (CHLORASEPTIC ) LOZENGE MM PRN (18:34)
[2022-11-23] MEDS ORDERED: MAG HYDROX/AL HYDROX/SIMETH 30 ML UNIT-DOSE CUP PO PRN (18:34)
[2022-11-23] MEDS ORDERED: BENZONATATE 200 MG CAPSULE PO PRN (18:34)
[2022-11-23] MEDS ORDERED: NALOXONE HCL 0.4 MG/ML VIAL IM PRN (18:34)
[2022-11-23] MEDS ORDERED: NALOXONE HCL (KLOXXADO) 8 MG SPRAY NS PRN (18:34)
[2022-11-23] MEDS ORDERED: IBUPROFEN 600 MG TABLET (FP) PO PRN (18:34)
[2022-11-23] MEDS ORDERED: AMMONIUM LACTATE 12% LOTION 225 GM BOTTLE TP PRN (18:34)
[2022-11-23] MEDS ORDERED: IBUPROFEN 400 MG TABLET (FP) PO PRN (18:34)
[2022-11-23] MEDS: THIAMINE HCL 100 MG TABLET (FP) PO SCH (22:04)
[2022-11-23] MEDS: MELATONIN 5 MG TABLETS PO SCH (22:04)
[2022-11-24 07:40] VITALS: RESP 18
[2022-11-24 09:54] LABS: EPI CELLS >36 /uL (0-25.1); HYALINE CASTS 4 /uL (0-3.1); URINE APPEARANCE CLOUDY; URINE BACTERIA >9,000 /uL (0-1359); URINE BILIRUBIN NEGATIVE (NEGATIVE); URINE COLOR YELLOW; URINE GLUCOSE (UA) NEGATIVE (NEGATIVE); URINE KETONE TRACE (NEGATIVE); URINE LEUK ESTERASE 3+ (NEGATIVE); URINE NITRITE POSITIVE (NEGATIVE); URINE PROTEIN 1+ (NEGATIVE); URINE RBC 39 /uL (0-23.9); URINE WBC 3059 /uL (0-25.8)
[2022-11-24] MEDS: PRENATAL VITAMINS W/ FOLIC ACID TABLET (FP) PO SCH (10:06)
[2022-11-24] MEDS: BICTEGRAV/EMTRICIT/TENOFOV (BIKTARVY) 50-200-25 MG TABLET PO SCH (13:49)
[2022-11-24] MEDS: amLODIPine BESYLATE 5 MG TABLET (FP) PO SCH (13:49)
[2022-11-24 16:12] LABS: POTASSIUM 4.1 mmol/L (3.5-5.1)
[2022-11-24 16:13] LABS: HEMATOCRIT 33.4 % (32.4-45.2); HEMOGLOBIN 11.5 GM/dL (10.7-15.3); MCH 28.4 pg (25.7-33.7); MCHC 34.3 g/dl (32.0-36.0); MEAN CELL VOLUME 82.9 fl (80-96); MEAN PLT VOLUME 8.1 fl (7.5-11.1); PLATELET COUNT 303 10^3/uL (134-434); RBC 4.03 M/mm3 (3.60-5.2); RDW 13.4 % (11.6-15.6); WHITE BLOOD COUNT 3.6 K/mm3 (4.0-10.0)
[2022-11-24 16:20] LABS: CALCIUM 8.7 mg/dL (8.5-10.1)
[2022-11-24 16:21] LABS: ALBUMIN 2.7 g/dl (3.4-5.0); BLOOD UREA NITROGEN 14.4 mg/dL (7-18)
[2022-11-24 16:24] LABS: CREATININE 0.8 mg/dL (0.55-1.3)
[2022-11-24 16:26] LABS: BILIRUBIN,TOTAL 0.3 mg/dL (0.2-1); TOT PROT 7.2 g/dl (6.4-8.2)
[2022-11-24] MEDS: MELATONIN 5 MG TABLETS PO SCH (21:59)
[2022-11-24] MEDS: THIAMINE HCL 100 MG TABLET (FP) PO SCH (21:59)
[2022-11-24] MEDS: BENZTROPINE MESYLATE 1 MG TABLET PO SCH (21:59)
[2022-11-24] MEDS ORDERED: ATORVASTATIN CA 10 MG TABLET (FP) PO SCH (22:00)
[2022-11-25 07:26] VITALS: PULSE 81; TEMP 98.2
[2022-11-25] MEDS ORDERED: PANTOPRAZOLE 40 MG TABLET PO SCH (10:00)
[2022-11-25] MEDS ORDERED: ASPIRIN COATED 81 MG TABLET.EC PO SCH (10:00)
[2022-11-25] MEDS: BENZTROPINE MESYLATE 1 MG TABLET PO SCH (10:12)
[2022-11-25] MEDS: amLODIPine BESYLATE 5 MG TABLET (FP) PO SCH (10:12)
[2022-11-25] MEDS: BICTEGRAV/EMTRICIT/TENOFOV (BIKTARVY) 50-200-25 MG TABLET PO SCH (10:13)
[2022-11-25] MEDS: PRENATAL VITAMINS W/ FOLIC ACID TABLET (FP) PO SCH (10:13)
[2022-11-25 11:02] VITALS: BP 118/79
[2022-11-25] MEDS ORDERED: CEPHALEXIN MONOHYDRATE 500 MG CAPSULE (UD) PO SCH (12:00)
[2022-12-02] MEDS ORDERED: HALOPERIDOL DECANOATE 100 MG/ML IM ONE (10:00)
== END 2022-11-25 18:08 | disposition left against medical advice (07) | DRG 770 ==
LOC: YASAS 17:15 → Y5N 20:25
PROVIDERS: ADMIT Allergy & Immunology; ATTEND Psychiatry & Neurology Pain Medicine
PROC: HZ42ZZZ Group Counseling for Substance Abuse Treatment, Cognitive-Behavioral (ICD-10-PCS; principal; 2022-11-23)
DX: F10.20 Alcohol dependence, uncomplicated (principal); F14.20 Cocaine dependence, uncomplicated; F17.210 Nicotine dependence, cigarettes, uncomplicated; F25.9 Schizoaffective disorder, unspecified; F19.282 Other psychoactive substance dependence with psychoactive substance-induced sleep disorder; Z21 Asymptomatic human immunodeficiency virus [HIV] infection status; I10 Essential (primary) hypertension; G40.909 Epilepsy, unspecified, not intractable, without status epilepticus; J45.20 Mild intermittent asthma, uncomplicated; K21.9 Gastro-esophageal reflux disease without esophagitis; R73.03 Prediabetes; Z86.19 Personal history of other infectious and parasitic diseases; Z88.2 Allergy status to sulfonamides
CPT/HCPCS: 36415; 80053; 81003; 85027; 86780; 87635; 87811

== ENCOUNTER 2023-02-24 18:44 | Inpatient (IN) | payer OTHER ==
[2023-02-24 19:12] VITALS: BMI 16.6
[2023-02-24] MEDS ORDERED: LOPERAMIDE HCL 2 MG CAPSULE PO PRN (21:40)
[2023-02-24] MEDS ORDERED: NALOXONE HCL 0.4 MG/ML VIAL IM PRN (21:40)
[2023-02-24] MEDS ORDERED: POLYETHYLENE GLYCOL (HEALTHYLAX) 3350 17 GM PACKET PO PRN (21:40)
[2023-02-24] MEDS ORDERED: NICOTINE POLACRILEX 2 MG GUM BUC PRN (21:40)
[2023-02-24] MEDS ORDERED: hydrOXYzine PAMOATE 25 MG CAPSULE (FP) PO PRN (21:40)
[2023-02-24] MEDS ORDERED: NALOXONE HCL (KLOXXADO) 8 MG SPRAY NS PRN (21:40)
[2023-02-24] MEDS ORDERED: ONDANSETRON *ODT* 4 MG TABLET SL PRN (21:40)
[2023-02-24] MEDS ORDERED: guaiFENesin 600 MG TABLET.ER (FP) PO PRN (21:40)
[2023-02-24] MEDS ORDERED: BENZONATATE 200 MG CAPSULE PO PRN (21:40)
[2023-02-24] MEDS ORDERED: METHOCARBAMOL 500 MG TABLET PO PRN (21:40)
[2023-02-24] MEDS ORDERED: ACETAMINOPHEN 325 MG TABLET (FP) PO PRN (21:40)
[2023-02-24] MEDS ORDERED: MAG HYDROX/AL HYDROX/SIMETH 30 ML UNIT-DOSE CUP PO PRN (21:40)
[2023-02-24] MEDS ORDERED: MAGNESIUM HYDROX 2400MG/30ML ORAL SUSPENSION 30 ML CUP PO PRN (21:40)
[2023-02-24] MEDS ORDERED: BENZOCAINE/MENTHOL (CHLORASEPTIC ) LOZENGE MM PRN (21:40)
[2023-02-24] MEDS ORDERED: BISMUTH SUBSALICYLATE 524 MG/30 ML PO PRN (21:40)
[2023-02-24] MEDS ORDERED: IBUPROFEN 600 MG TABLET (FP) PO PRN (21:40)
[2023-02-24] MEDS ORDERED: IBUPROFEN 400 MG TABLET (FP) PO PRN (21:40)
[2023-02-25] MEDS: THIAMINE HCL 100 MG TABLET (FP) PO SCH ×2 (01:19→22:26)
[2023-02-25] MEDS: MELATONIN 5 MG TABLETS PO SCH ×2 (01:53→22:26)
[2023-02-25] MEDS: PRENATAL VITAMINS W/ FOLIC ACID TABLET (FP) PO SCH (10:11)
[2023-02-25] MEDS: NICOTINE 14 MG/24 HOURS TOPICAL PATCH TD SCH (10:11)
[2023-02-25 10:58] LABS: CHLORIDE 111 mmol/L (98-107); POTASSIUM 3.7 mmol/L (3.5-5.1); SODIUM 144 mmol/L (136-145)
[2023-02-25 11:00] LABS: HEMATOCRIT 36.8 % (32.4-45.2); MCH 28.1 pg (25.7-33.7); MCHC 32.6 g/dl (32.0-36.0); MEAN CELL VOLUME 85.9 fl (80-96); MEAN PLT VOLUME 7.7 fl (7.5-11.1); PLATELET COUNT 261 10^3/uL (134-434); RBC 4.28 M/mm3 (3.60-5.2); RDW 13.9 % (11.6-15.6); WHITE BLOOD COUNT 2.9 K/mm3 (4.0-10.0)
[2023-02-25 11:18] LABS: ANION GAP 3 mmol/L (4-13); BLOOD UREA NITROGEN 20.4 mg/dL (7-18); CALCIUM 8.6 mg/dL (8.5-10.1); CO2 29 mmol/L (21-32); GLUCOSE,RANDOM 84 mg/dL (74-106)
[2023-02-25 11:20] LABS: SGOT/AST 21 U/L (15-37); SGPT/ALT 16 U/L (13-61)
[2023-02-25 11:21] LABS: BILIRUBIN,TOTAL 0.2 mg/dL (0.2-1)
[2023-02-25 11:23] LABS: TOT PROT 6.5 g/dl (6.4-8.2)
[2023-02-25 11:24] LABS: ALK PHOS 87 U/L (45-117)
[2023-02-25] MEDS ORDERED: ALBUTEROL SO4 HFA INHALER IH PRN (12:59)
[2023-02-25] MEDS: amLODIPine BESYLATE 5 MG TABLET (FP) PO SCH (13:41)
[2023-02-25] MEDS: BICTEGRAV/EMTRICIT/TENOFOV (BIKTARVY) 50-200-25 MG TABLET PO SCH (14:56)
[2023-02-25] MEDS ORDERED: BENZTROPINE MESYLATE 1 MG TABLET PO SCH (22:00)
[2023-02-25] MEDS ORDERED: ATORVASTATIN CA 10 MG TABLET (FP) PO SCH (22:00)
[2023-02-26] MEDS: BICTEGRAV/EMTRICIT/TENOFOV (BIKTARVY) 50-200-25 MG TABLET PO SCH (07:54)
[2023-02-26 09:29] VITALS: BP 141/80; PULSE 84; RESP 20; TEMP 98.2
[2023-02-26] MEDS ORDERED: ASPIRIN COATED 81 MG TABLET.EC PO SCH (10:00)
[2023-02-26] MEDS ORDERED: PANTOPRAZOLE 40 MG TABLET PO SCH (10:00)
[2023-02-26] MEDS ORDERED: FLUoxetine HCL 20 MG CAPSULE PO SCH (10:00)
[2023-02-26] MEDS: PRENATAL VITAMINS W/ FOLIC ACID TABLET (FP) PO SCH (10:20)
[2023-02-26] MEDS: NICOTINE 14 MG/24 HOURS TOPICAL PATCH TD SCH (10:20)
[2023-02-26] MEDS: amLODIPine BESYLATE 5 MG TABLET (FP) PO SCH (10:20)
== END 2023-02-26 09:55 | disposition home or self-care (01) | DRG 774 ==
LOC: YASAS 18:44 → Y3N 23:09
PROVIDERS: ADMIT Allergy & Immunology; ATTEND Surgery
PROC: HZ2ZZZZ Detoxification Services for Substance Abuse Treatment (ICD-10-PCS; principal; 2023-02-24)
DX: F14.20 Cocaine dependence, uncomplicated (principal); F10.20 Alcohol dependence, uncomplicated; F31.9 Bipolar disorder, unspecified; F25.9 Schizoaffective disorder, unspecified; F19.24 Other psychoactive substance dependence with psychoactive substance-induced mood disorder; Z21 Asymptomatic human immunodeficiency virus [HIV] infection status; I10 Essential (primary) hypertension; J45.20 Mild intermittent asthma, uncomplicated; K21.9 Gastro-esophageal reflux disease without esophagitis; M54.50 Low back pain, unspecified; G89.29 Other chronic pain; Z88.2 Allergy status to sulfonamides
CPT/HCPCS: 36415; 80053; 80307; 81025; 85027; 86780; 87635

== ENCOUNTER 2023-05-13 15:43 | Emergency (ER) | payer OTHER ==
[2023-05-13 15:51] VITALS: BP 140/88; PULSE 104; RESP 18; TEMP 99.3; BMI 24.7
[2023-05-13 17:26] LABS: VENOUS BASE EXCESS 4.7 mmol/L (-2-2); VENOUS O2 SATURATION 57.8 % (70-80); VENOUS PCO2 44.4 mmHg (38-52); VENOUS PH 7.44 (7.310-7.410)
[2023-05-13 17:35] LABS: BASO % 0.5 % (0-2.0); HEMATOCRIT 35.6 % (32.4-45.2); HEMOGLOBIN 12.2 GM/dL (10.7-15.3); LYMPH % 11.7 % (8-40); MCH 28.4 pg (25.7-33.7); MCHC 34.3 g/dl (32.0-36.0); MEAN CELL VOLUME 82.9 fl (80-96); MEAN PLT VOLUME 7.3 fl (7.5-11.1); MONO % 16.4 % (3.8-10.2); NEUT % 71.4 % (42.8-82.8); PLATELET COUNT 268 10^3/uL (134-434); RDW 13.7 % (11.6-15.6)
[2023-05-13 18:01] LABS: POTASSIUM 3.7 mmol/L (3.5-5.1)
[2023-05-13 18:03] LABS: CALCIUM 8.5 mg/dL (8.5-10.1)
[2023-05-13 18:04] LABS: BLOOD UREA NITROGEN 10.8 mg/dL (7-18); MAGNESIUM 2.2 mg/dL (1.8-2.4)
[2023-05-13 18:07] LABS: CREATININE 0.9 mg/dL (0.55-1.3); PHOSPHOROUS 2.7 mg/dL (2.5-4.9)
[2023-05-13 18:08] LABS: BILIRUBIN,TOTAL 0.4 mg/dL (0.2-1)
[2023-05-13 18:09] LABS: TOT PROT 8.6 g/dl (6.4-8.2)
[2023-05-13 18:12] LABS: N-TERMINAL BNP 61.9 pg/ml (5-125)
[2023-05-13] MEDS ORDERED: ACETAMINOPHEN INJECTION 100 ML IVPB ONE (18:27)
[2023-05-13] MEDS: ACETAMINOPHEN 1000 MG/100 ML BAG IVPB ONE (18:30)
[2023-05-13] MEDS ORDERED: LACTATED RINGERS SOLUTION 1000 ML INFUS.BAG IV ONE (19:00)
== END 2023-05-13 19:45 | disposition left against medical advice (07) ==
LOC: JER 15:43
PROC: 3E033NZ Introduction of Analgesics, Hypnotics, Sedatives into Peripheral Vein, Percutaneous Approach (ICD-10-PCS; principal; 2023-05-13)
DX: R10.13 Epigastric pain (principal); R05.9 Cough, unspecified; J10.1 Influenza due to other identified influenza virus with other respiratory manifestations; Z20.822 Contact with and (suspected) exposure to COVID-19
CPT/HCPCS: 0241U-QW; 36415; 71045-TC-FY; 80053; 82803; 83735; 83880; 84100; 84484; 85025; 93005; 93010; 96374; 99285-25; J0131

== ENCOUNTER 2023-05-28 07:15 | Emergency (ER) | payer OTHER ==
[2023-05-28 07:40] VITALS: BP 146/93; PULSE 73; RESP 18; TEMP 97.4; BMI 20.1
== END 2023-05-28 08:05 | disposition home or self-care (01) ==
LOC: JER 07:15
DX: R10.13 Epigastric pain (principal); K46.9 Unspecified abdominal hernia without obstruction or gangrene
CPT/HCPCS: 93005; 93010; 99283-25

== ENCOUNTER 2024-01-09 17:48 | Inpatient (IN) | payer OTHER ==
[2024-01-09 18:21] VITALS: BMI 19.5
[2024-01-09] MEDS ORDERED: BENZOCAINE/MENTHOL (CHLORASEPTIC ) LOZENGE MM PRN (19:03)
[2024-01-09] MEDS ORDERED: MAGNESIUM HYDROX 2400MG/30ML ORAL SUSPENSION 30 ML CUP PO PRN (19:03)
[2024-01-09] MEDS ORDERED: NALOXONE (NARCAN) HCL 4 MG/0.1 ML SPRAY NS PRN (19:03)
[2024-01-09] MEDS ORDERED: POLYETHYLENE GLYCOL (HEALTHYLAX) 3350 17 GM PACKET PO PRN (19:03)
[2024-01-09] MEDS ORDERED: LOPERAMIDE HCL 2 MG CAPSULE PO PRN (19:03)
[2024-01-09] MEDS ORDERED: guaiFENesin 600 MG TABLET.ER (FP) PO PRN (19:03)
[2024-01-09] MEDS ORDERED: MAG HYDROX/AL HYDROX/SIMETH 30 ML UNIT-DOSE CUP PO PRN (19:03)
[2024-01-09] MEDS ORDERED: IBUPROFEN 400 MG TABLET (FP) PO PRN (19:03)
[2024-01-09] MEDS ORDERED: BENZONATATE 200 MG CAPSULE PO PRN (19:03)
[2024-01-09] MEDS ORDERED: HYDROCHLOROTHIAZIDE 12.5 MG CAPSULE (FP) ONE (19:19)
[2024-01-09] MEDS ORDERED: amLODIPine BESYLATE 5 MG TABLET (FP) ONE (19:19)
[2024-01-09] MEDS: HYDROCHLOROTHIAZIDE 12.5 MG CAPSULE (FP) PO SCH (19:25)
[2024-01-09] MEDS: amLODIPine BESYLATE 5 MG TABLET (FP) PO SCH (19:25)
[2024-01-09] MEDS: hydrOXYzine PAMOATE 25 MG CAPSULE (FP) PO PRN (21:41)
[2024-01-09] MEDS: THIAMINE 100 MG TABLET PO SCH (21:41)
[2024-01-09] MEDS: IBUPROFEN 600 MG TABLET (FP) PO PRN (21:41)
[2024-01-09] MEDS: MELATONIN 5 MG TABLETS PO SCH (21:41)
[2024-01-10] MEDS: cloNIDine HCL 0.1 MG TABLET PO ONE (07:36)
[2024-01-10] MEDS: PRENATAL VITAMINS W/ FOLIC ACID TABLET (FP) PO SCH (10:14)
[2024-01-10 11:26] LABS: HEMATOCRIT 34.5 % (32.4-45.2); HEMOGLOBIN 11.8 GM/dL (10.7-15.3); MCH 28.7 pg (25.7-33.7); MCHC 34.3 g/dl (32.0-36.0); MEAN CELL VOLUME 83.7 fl (80-96); MEAN PLT VOLUME 7.8 fl (7.5-11.1); PLATELET COUNT 264 10^3/uL (134-434); RBC 4.12 M/mm3 (3.60-5.2); RDW 13.9 % (11.6-15.6); WHITE BLOOD COUNT 2.2 K/mm3 (4.0-10.0)
[2024-01-10 12:34] LABS: SYPHILIS W/ RPR CONF NON-REACTIVE (NONREACTIVE)
[2024-01-10 14:29] LABS: CHLORIDE 107 mmol/L (98-107); POTASSIUM 3.6 mmol/L (3.5-5.1); SODIUM 139 mmol/L (136-145)
[2024-01-10 14:31] LABS: CALCIUM 8.6 mg/dL (8.5-10.1)
[2024-01-10 14:32] LABS: ALBUMIN 2.8 g/dl (3.4-5.0); ANION GAP 3 mmol/L (4-13); BLOOD UREA NITROGEN 14.1 mg/dL (7-18); CO2 29 mmol/L (21-32); GLUCOSE,RANDOM 96 mg/dL (74-106)
[2024-01-10 14:35] LABS: SGOT/AST 21 U/L (15-37); SGPT/ALT 13 U/L (13-61)
[2024-01-10 14:37] LABS: BILIRUBIN,TOTAL 0.5 mg/dL (0.2-1); TOT PROT 6.8 g/dl (6.4-8.2)
[2024-01-10 14:38] LABS: ALK PHOS 73 U/L (45-117)
[2024-01-10] MEDS: ACETAMINOPHEN 325 MG TABLET (FP) PO PRN (22:27)
[2024-01-11 06:20] VITALS: BP 137/96; PULSE 60; RESP 16; TEMP 98
[2024-01-11] MEDS: NALOXONE (NYS OPIOID OVERDOSE PROGRAM) 4 MG/0.1 ML SPRAY NS PRN (15:28)
== END 2024-01-11 15:45 | disposition left against medical advice (07) | DRG 770 ==
LOC: YASAS 17:48 → Y3NR 19:22
PROVIDERS: ADMIT Allergy & Immunology; ATTEND Psychiatry & Neurology Pain Medicine
PROC: HZ42ZZZ Group Counseling for Substance Abuse Treatment, Cognitive-Behavioral (ICD-10-PCS; principal; 2024-01-09)
DX: F14.20 Cocaine dependence, uncomplicated (principal); F12.20 Cannabis dependence, uncomplicated; F17.210 Nicotine dependence, cigarettes, uncomplicated; F25.9 Schizoaffective disorder, unspecified; F31.9 Bipolar disorder, unspecified; Z21 Asymptomatic human immunodeficiency virus [HIV] infection status; E78.2 Mixed hyperlipidemia; I10 Essential (primary) hypertension; J45.20 Mild intermittent asthma, uncomplicated; Z79.899 Other long term (current) drug therapy
CPT/HCPCS: 36415; 80053; 80305; 80307; 85027; 86780; 86803; 87811; 93005; 93010